=== PATIENT | female | born 1940 | race Caucasian/White ===

== ENCOUNTER 2019-02-06 12:31 | Emergency (ER) | payer MEDICARE, OTHER ==
[~2019-02-06] VITALS: Ht 172.7 cm; Wt 72.6 kg
--- OUTSIDE RECORDS SUMMARY | ~2019-02-06 | XMS | Encounter Summary ---
Demographics + + + | Address | [address] | | | [place] [address] | + + + | Home Phone | | + + + | Preferred Language | Unknown | + + + | Marital Status | | + + + | Jainism Affiliation | 1077 | + + + | Race | Unknown | + + + | Ethnic Group | Unknown | + + + Author + + + | Author | [facility] | | | and [place] | + + + | Organization | [facility] | | | and [place] | + + + | Address | Unknown | + + + | Phone | Unavailable | + + + Support + + +---------+ + | Name | Relationship | Address | Phone | + + +---------+ + | Maryana Zamora | ECON | Unknown | | + + +---------+ + Care Team Providers + +------+ + | Care Fruit Or Nut Crops Farm Manager Name | Role | Phone | + +------+ + | Slava Allison DO | PCP | | + +------+ + Encounter Details +--------+ + + + + | Date | Type | Department | Care Team | Description | +--------+ + + + + | 01/07/ | Imaging | [facility] | Provider, | | | 2019 | Exam | [facility] | MD [address] | | | | | IMAGING | Radha [address]ias. [address] | | | | | [phone] | [place] [address] | | +--------+ + + + + Social History + + + +--------+ + | Tobacco Use | Types | Packs/Day | Years | Date | | | | | Used | | + + + +--------+ + | Former Smoker | Cigarettes | 1 | 18 | 10/10/1966 - | | | | | | 10/10/1983 | + + + +--------+ + + +---+---+---+ | Smokeless Tobacco: | | | | | Never Used | | | | + +---+---+---+ + + +---------+ + | Alcohol Use | Drinks/We | oz/Week | Comments | | | ek | | | + + +---------+ + | Yes | | | every 2 months | + + +---------+ + + + + | Sex Assigned at | Date Recorded | | | | + + + | Not on file | | + + + as of this encounter Functional Status + + + + | Functional Status | Response | Date of Assessment | + + + + | Are you deaf or do you have serious | No | 12/24/2017 | | difficulty hearing? | | | + + + + | Are you blind or do you have serious | No | 12/24/2017 | | difficulty seeing, even when wearing | | | | glasses? | | | + + + + | Do you have serious difficulty walking or | No | 12/24/2017 | | climbing stairs? (5 years old or older) | | | + + + + | Do you have difficulty dressing or bathing? | No | 12/24/2017 | | (5 years old or older) | | | + + + + | Because of a physical, mental, or emotional | No | 12/24/2017 | | condition, do you have difficulty doing | | | | errands alone such as visiting a doctor's | | | | office or shopping? [15 years old or | | | | older)] | | | + + + + + + + + | Cognitive Status | Response | Date of Assessment | + + + + | Because of a physical, mental, or emotional | No | 12/24/2017 | | condition, do you have serious difficulty | | | | concentrating, remembering, or making | | | | decisions? (5 years old or older) | | | + + + + as of this encounter Plan of Treatment +--------+---------+ + + + | Date | Type | Specialty | Care Team | Description | +--------+---------+ + + + | 02/23/ | Office | Neurosurgery | Jose Rosa | | | 2019 | Visit | | KATHERIN Torres [address] | | | | | | [address] [facility] [address] | | | | | | [place] | | | | | | [phone] | | | | | | | | +--------+---------+ + + + | 04/22/ | Office | Neurosurgery | Crow Bates MD | | | 2018 | Visit | | [address] [facility] | | | | | | [address] [place] | | | | | | [address] | | | | | | | | +--------+---------+ + + + as of this encounter Procedures + +--------+ + + + | Procedure Name | Priori | Date/Time | Associated Diagnosis | Comments | | | ty | | | | + +--------+ + + + | MRI LUMBAR SPINE WO | Routin | 01/07/2019 | | Results for this | | CONTRAST | e | 1605 PST | | procedure are in the | | | | | | results section. | + +--------+ + + + in this encounter Results MRI Lumbar Spine wo Contrast (01/07/2019 1605) + + + | Narrative | Performed At | + + + | External films for comparison only | [facility] | | | | | No results will be in the chart. | | + + + + +---------+ + + | Performing | Address | City/State/Zipcode | Phone Number | | Organization | | | | + +---------+ + + | [facility] | | | | + +---------+ + + in this encounter Visit Diagnoses Not on filein this encounter"
--- OUTSIDE RECORDS SUMMARY | ~2019-02-06 | XMS | Encounter Summary ---
Demographics + + + | Address | [address] | | | [place] [address] | + + + | Home Phone | | + + + | Preferred Language | Unknown | + + + | Marital Status | | + + + | Orthodoxy Affiliation | 1077 | + + + | Race | Unknown | + + + | Ethnic Group | Unknown | + + + Author + + + | Author | [facility] | | | and [place] | + + + | Organization | [facility] | | | and [place] [...] Team Providers + +------+ + | Care Flexo Press Operator Name | Role | Phone | + +------+ + | Vi Johnson | PCP | | | [place] | | | + +------+ + Encounter Details +--------+ + + + + | Date | Type | Department | Care Team | Description | +--------+ + + + + | 01/20/ | Orders Only | [facility] [place] | Crow Bates MD | Lumbar radiculopathy | | 2019 | | NEUROSURGERY [address] | (Primary Dx); | | | | [address] [place] [address] | [address] [place], [place] | Scoliosis, | | | | [place], [place] | [address] | unspecified | | | | [address] | | scoliosis type, | | | | [phone] | | unspecified spinal | | | | | | region | +--------+ + + + + Social [...] Neurosurgery | Jose Rosa | | | 2018 | Visit | | KATHERIN Torres [address] | | | | | | [address] [place] [address] | | | | | | [place] | | | | | | [address] | | | | | | | | +--------+---------+ + + + | 04/22/ | Office | Neurosurgery | Crow Bates MD | | | 2018 | Visit | | [address] [place] | | | | | | [address] [place] | | | | | | [address] | | | | | | | | +--------+---------+ + + + as of this encounter Results XR Scoliosis Entire Spine 6+ Views (01/26/2019 0940) + + + | Narrative | Performed At | + + + | EXAM:XR SCOLIOSIS ENTIRE SPINE 6+ VIEWS CLINICAL HISTORY: | [facility] | | Surgical planning COMPARISON: Cervical spine radiograph 01/09/2019, | | | chest x-ray 01/21/2019, and scoliosis 09/18/2017. FINDINGS: | | | Frontal and lateral views of the entire spine. There are right and | | | left lateral bending views. There is a frontal view of the lumbar | | | spine in addition to extension and flexion lateral views of the | | | lumbar spine. There is levoconvex scoliosis in the lumbar | | | spine. The apex is L3. There is left lateral listhesis of L3 | | | and L4. No significant change in the curvature with right or left | | | lateral bending. Incidental identification of fusion related | | | changes in the lower cervical spine. No exaggeration of the | | | thoracic arthrosis. The lungs are clear bilaterally. Dedicated | | | images of the lumbar spine. Levoconvex scoliosis. There is | | | diffuse disc narrowing. There is left lateral listhesis of L3 and | | | L4. Right lateral listhesis of L1 and L2. In the neutral | | | lateral position there is a component of anterolisthesis at L4 | | | estimated at about 4 mm. Probable slight anterolisthesis of | | | L3. No abnormal translation with flexion or extension. 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 No abnormal translation with | | | flexion or extension. Dictated and Signed by: Derik Louis MD | | | Electronically signed: 01/26/2019 9:59 AM | | + + + + + | Procedure Note | + + | Rudy, Rad Results In - 01/26/2019 1002 PDT EXAM:XR SCOLIOSIS ENTIRE SPINE 6+ VIEWS | | | | CLINICAL HISTORY: Surgical planning | | | | COMPARISON: Cervical spine radiograph 01/09/2019, chest x-ray 01/21/2019, and | | scoliosis 09/18/2017. | | | | FINDINGS: Frontal and lateral views of the entire spine. There are right and | | left lateral bending views. There is a frontal view of the lumbar spine in | | addition to extension and flexion lateral views of the lumbar spine. | | | | There is levoconvex scoliosis in the lumbar spine. The apex is L3. There is | | left lateral listhesis of L3 and L4. No significant change in the curvature | | with right or left lateral bending. Incidental identification of fusion related | | changes in the lower cervical spine. No exaggeration of the thoracic arthrosis. | | | | The lungs are clear bilaterally. | | | | Dedicated images of the lumbar spine. Levoconvex scoliosis. There is diffuse | | disc narrowing. There is left lateral listhesis of L3 and L4. Right lateral | | listhesis of L1 and L2. In the neutral lateral position there is a component of | | anterolisthesis at L4 estimated at about 4 mm. Probable slight anterolisthesis | | of L3. No abnormal translation with flexion or extension. | | | | IMPRESSION - | | | | Levoconvex scoliosis with associated multilevel spondylosis and | | spondylolisthesis. | | | | No abnormal translation with flexion or extension. | | | | Dictated and Signed by: Derik Louis MD | | Electronically signed: 01/26/2019 9:59 AM | + + + +---------+ + + | Performing | Address | City/State/Zipcode | Phone Number | | Organization | | | | + +---------+ + + | [facility] | | | | + +---------+ + + in this encounter Visit Diagnoses + + | Diagnosis | + + | Lumbar radiculopathy - Primary | + + | Thoracic or lumbosacral neuritis or radiculitis, unspecified | + + | Scoliosis, unspecified scoliosis type, unspecified spinal region | + +"
--- OUTSIDE RECORDS SUMMARY | ~2019-02-06 | XMS | Encounter Summary ---
Demographics + + + | Address | [address] | | | [place] [address] | + + + | Home Phone | | + + + | Preferred Language | Unknown | + + + | Marital Status | | + + + | Hinduism Affiliation | 1077 | + + + | Race | Unknown | + + + | Ethnic Group | Unknown | + + + Author + + + | Author | [facility] | | | and [place] | + + + | Organization | [facility] | | | and [place] | [...] Team Providers + +------+ + | Care Grassroots Organizer Name | Role | Phone | + +------+ + | Vi Johnson | PCP | | | PA | | | + +------+ + Reason for Visit Auth/Cert +--------+--------+ + + + + | Status | Reason | Specialty | Diagnoses / | Referred By | Referred To | | | | | Procedures | Contact | Contact | +--------+--------+ + + + + | | | | Diagnoses | | Crow Bates | | | | | Lumbar | | MD Roxanne [address] | | | | radiculopath | | [address] [place] | | | | | y (M54.16), | | [address] [place] | | | | | Scoliosis, | | [place], [place] | | | | | unspecified | | [address] Phone: | | | | | scoliosis | | [phone] | | | | | type, | | Fax: | | | | | unspecified | | [phone] | | | | | spinal | | | | | | | region | | | | | | | (M41.9), | | | | | | | Lumbar | | | | | | | spondylosis | | | | | | | (M47.816), | | | | | | | Neural | | | | | | | foraminal | | | | | | | stenosis of | | | | | | | lumbar spine | | | | | | | (M99.83), | | | | | | | Neurogenic | | | | | | | claudication | | | | | | | (M48.062) | | | | | | | Procedures | | | | | | | NV SPINAL | | | | | | | FUSION,ANT,E | | | | | | | A ADNL LEVEL | | | | | | | NV SPINE | | | | | | | FUSN,POST | | | | | | | TECH,EA | | | | | | | ADDNL SGMT | | | | | | | NV ARTHDSIS | | | | | | | POST/POSTERO | | | | | | | LATRL/POSTIN | | | | | | | TERBODY | | | | | | | LUMBAR | | | | | | | POSTERIOR | | | | | | | SEGMENTAL | | | | | | | INSTRUMENTAT | | | | | | | ION 3-6 VRT | | | | | | | SEG NV INSJ | | | | | | | BIOMCHN DEV | | | | | | | | | | | | | | INTERVERTEBR | | | | | | | AL DSC SPC | | | | | | | W/ARTHRD NV | | | | | | | | | | | | | | STEREOTACTIC | | | | | | | COMP ASSIST | | | | | | | PROC,SPINAL | | | | | | | | | | | | | | LAMINEC/FACE | | | | | | | TECT/FORAMIN | | | | | | | ,LUMBAR 1 | | | | | | | SEG NV | | | | | | | LAMINEC/FACE | | | | | | | TECT/FORAMIN | | | | | | | ,EACH ADDNL | | | +--------+--------+ + + + + Encounter Details +--------+ + + + + | Date | Type | Department | Care Team | Description | +--------+ + + + + | 01/26/ | Hospital | [facility] [place] | Crow Bates MD | Gait abnormality | | 2019 - | Encounter | [facility] | [address] [place] | (Primary Dx); | | | | [address] [place] | [address] | Bilateral lumbar | | 01/30/ | | [place] [address] | [id number] | radiculopathy | | 2019 | | [phone] | | | +--------+ + + + + [...] + + + as of this encounter Last Filed Vital Signs + + + + | Vital Sign | Reading | Time Taken | + + + + | Blood Pressure | 149/67 | 01/30/2019 0817 PDT | + + + + | Pulse | 90 | 01/30/2019 1101 PDT | + + + + | Temperature | 36.9 C (98.4 F) | 01/30/2019 0746 PDT | + + + + | Respiratory Rate | 16 | 01/30/2019 0903 PDT | + + + + | Oxygen Saturation | 92% | 01/30/2019 1101 PDT | + + + + | Inhaled Oxygen | - | - | | Concentration | | | + + + + | Weight | 75.2 kg (165 lb 12.6 | 01/26/2019 1010 PDT | | | oz) | | + + + + | Height | 154.5 cm (5' 0.83") | 01/26/2019 1010 PDT | + + + + | Body Mass Index | 31.5 | 01/26/2019 1010 PDT | + + + + in this encounter Functional Status + + + + | Functional Status | Response | Date of Assessment | + + + + | Are you deaf or do you have serious | No | 01/30/2019 | | difficulty hearing? | | | + + + + | Are you blind or do you have serious | No | 01/30/2019 | | difficulty seeing, even when wearing | | | | glasses? | | | + + + + | Do you have serious difficulty walking or | Yes | 01/30/2019 | | climbing stairs? (5 years old or older) | | | + + + + | Do you have difficulty dressing or bathing? | No | 01/30/2019 | | (5 years old or older) | | | + + + + | Because of a physical, mental, or emotional | No | 01/30/2019 | | condition, do you have difficulty [...] physical, mental, or emotional | No | 01/30/2019 | | condition, do you have serious difficulty | | | | concentrating, remembering, or making | | | | decisions? (5 years old or older) | | | + + + + as of this encounter Discharge Summaries Freddy Og PA-C - 01/30/2019 1010 PDTFormatting of this note may be different from the original. DISCHARGE SUMMARY Pt. Name/Age/: Lulu Granados 78 y.o. 1940 Date of Admission: 01/26/2019 Date of Discharge: 01/30/2019 Admitting Physician: Crow Bates MD PCP: Vi Johnson Discharging Physician: Freddy Og PA-C Primary Discharge Dx: Scoliosis of thoracolumbar spine, unspecified scoliosis type Other secondary kyphosis, thoracolumbar region Lumbar facet arthropathy Yes Other osteoarthritis of spine, lumbar region Lumbar foraminal stenosis Bilateral lumbar radiculopathy Secondary Discharge Dx: Patient Active Problem List Diagnosis Osteoporosis SCOLIOSIS SPINAL STENOSIS Bilateral lumbar radiculopathy Lumbar foraminal stenosis DDD (degenerative disc disease), lumbar Lumbar radiculopathy 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 female that presents for a follow up to discuss back surgery. Patient returns and overall is doing okay from her neck but has p ersistent issue with her back and legs. Her back has been a bit better since her operation on her neck for myelopathy but her lumbar radiculopathy has increased. She has persistent l ateral leg to the dorsal foot pain and on the right and now left posterior leg pain that has increased. Hospital Course, including Complications: The patient was admitted for planned surgery. She had a lumbar fusion completed without co mplication. After surgery, there were no events. She did struggle with pain and nausea the first 24 hours which slowed her up a little bit. She mobilized well very well after PO day 2. On PO day 2 there was notable weakness in her left leg. Inpatient rehab was considered bu t on PO day 3 she seemed to turn the corner and we felt it was appropriate to DC home on PO day 4. The patient was discharged home and will follow-up as an outpatient. There were no cardiac issues, pulmonary issues, evidence of DVT or infection. Prescription Monitoring Program checked prior to discharge. Preoperative MEDD 0 MEDD at discharge= Outpatient Morphine Equivalent Daily Dose (MEDD) 01/30/19 and after 45-90 mg MEDD Order Name Dose Route Frequency Maximum MEDD oxyCODONE (ROXICODONE) 5 mg tablet 5-10 mg Oral EVERY 4 HOURS PRN 45-90 mg MEDD Total Potential Daily Morphine Equivalence 45-90 mg MEDD Calculation Information oxyCODONE (ROXICODONE) 5 mg tablet oxyCODONE 5 mg Tabs: single dose of 5-10 mg * 6 doses per day * morphine equivalence facto r of 1.5 = 45-90 mg MEDD based on use and adjustments of medications to achieve adequate management of symptoms dur ing hospital course. Patient has been counseled on expectation to taper the use of medications and has been prov ided education on the risks, benefits, and alternatives to medications. Naloxone is ordered due to risk of opiate overdose Medications Reconciled upon Discharge are: Discharge Medications New Medications Details lactulose 10 g/15 mL solution Take 30 mLs by mouth 2 times daily. For constipation methocarbamol 750 mg tablet Take 1-2 tablets by mouth every 6 hours as needed for Muscle spasms. aka: ROBAXIN naloxone 4 mg/nasal spray 1 spray by Nasal route as needed for Decreased Responsiveness. Please provide counseling/e ducation on appropriate use. aka: NARCAN oxyCODONE 5 mg tablet Take 1-2 tablets by mouth every 4 hours as needed for Pain. Exempt: patient had recent flor or spine surgery. aka: ROXICODONE Changed Medications Details famotidine 20 mg tablet Take 1 tablet by mouth 2 times daily. What changed: how much to take aka: PEPCID Unchanged Medications Details amLODIPine 5 mg tablet Take 5 mg by mouth Daily. aka: NORVASC ascorbic acid 500 mg tablet Take 500 mg by mouth Daily. aka: VITAMIN C aspirin 81 MG tablet Take 81 mg by mouth Daily. benazepril 10 mg tablet Take 10 mg by mouth Daily. aka: LOTENSIN benzonatate 200 MG capsule Take 200 mg by mouth 3 times daily as needed. aka: TESSALON betamethasone valerate 0.1 % cream Apply topically 2 times daily. aka: VALISONE cetirizine 10 mg tablet Take 10 mg by mouth Daily. aka: zyrTEC ergocalciferol 50,000 units capsule Take 50,000 Units by mouth Once a week. aka: VITAMIN D-2 Fish Oil 1360 MG Caps Take 1,000 mg by mouth 3 times daily. levothyroxine 75 MCG tablet Take 75 mcg by mouth every morning (before breakfast). aka: SYNTHROID meloxicam 15 mg tablet Take 15 mg by mouth Daily. aka: MOBIC simvastatin 40 mg tablet Take 40 mg by mouth Daily. aka: ZOCOR SYSTANE 0.4-0.3% ophthalmic solution Generic drug: polyethylene glycol-propylene glycol Place 1 drop into both eyes EVERY 4 TO 6 HOURS NEEDED for Dry Eyes. THERAGRAN PO Take by mouth. Discontinued Medications zolpidem 5 mg tablet aka: BENJAMIN Condition on Discharge: Stable Follow-Up Plans: Follow-up: 3-4 weeks for routine follow-up. Follow-up with primary care physician as needed. Diet: Resume home diet Activity: Continue to follow guidelines and precautions as previously discussed. Bracing: C Brace Electronically signed by: Freddy Og, 01/30/2019 10:10 [facility] in this encounter Discharge Instructions Freddy Og PA-C - 01/30/2019Discharge Instructions for Lumbar Fusion You had a lumbar fusion. During this procedure, your doctor locked together (fused) some of the bones in your spine. This limits the movement of these bones to help relieve your pain. Here s what you need to know about home care following a spinal fusion. Activity Arrange your household to keep the items you need within reach. Remove electrical cords, throw rugs, and anything else that may cause you to fall. Use a walkeror handrails until your balance, flexibility, and strength improve. And re member to ask for help from others when you need it. Free up your hands so that you can use them to keep balance. Use a kacie pack, apron, or pockets to carry things. Be sure not to carry too much at once. Don t bend or twist at the waist, or raise your hands over your head for the first two weeks after your surgery. Don t lift anything heavier than 5 pounds for the first four weeks after surgery. Don t sit for more than30 to 45 minutes at a time. Take frequent short walks. They a re the bhatia to your recovery. As your back feels better please gradually increase the distanc e you walk as discussed with your provider. Don t drive until your doctor says it s OK. And never drive while you are taking opi oid pain medication. Nap if you are tired, but don t stay in bed all day. Use chairs with arms. The arms make it easier for you to stand up and sit down. If you have not yet received instructions about physical therapy, ask your doctor about them. Incision care Check your incision daily for redness, tenderness, or drainage. Don t soak your wound in water (no hot tubs, bathtubs, swimming pools) until your doct or says it s OK. As long as you keep your incision dry you can shower as desired. After 5 days you may le t shower water run over the incision but do not submerse the incision under water until afte r you see your provider. Gently pat the incision dry. Don t rub it, or apply creams or lot ions. And if you feel unsteady while standing to shower, use a shower stool or chair. Other home care Use nonslip bath mats, grab bars, an elevated toilet seat, and a shower chair in your ba throom. Take your medication exactly as directed. Don t take nonsteroidal anti-inflammatory medications (NSAIDs), such as ibuprofen. The y may delay or prevent proper fusion of the spine. If you smoke, stop! This will be one of the most important things you can do to help you recover from surgery. Wear your back brace, if one was prescribed, as directed by your doctor. Follow-up Most patients will be seen approximately 4 weeks after surgery. Be sure to get your 1 mo nth post op x-rays at least 45 minutes prior to your 1 month post op appointment. [id number] [employer]. [address] [place] [address], [place] [address]. All righ ts reserved. This information is not intended as a substitute for professional medical care. Always follow your healthcare professional's instructions. in this encounter Medications at Time of Discharge + + + +---------+ + + | Medication | Sig. | Disp. | Refills | Start | End Date | | | | | | Date | | + + + +---------+ + + | amLODIPine | Take 5 mg by mouth | | | | | | (NORVASC) 5 mg | Daily. | | | | | | tablet | | | | | | + + + +---------+ + + | ascorbic acid | Take 500 mg by mouth | | | | | | (VITAMIN C) 500 mg | Daily. | | | | | | tablet | | | | | | + + + +---------+ + + | aspirin 81 MG | Take 81 mg by mouth | | | | | | tablet | Daily. | | | | | + + + +---------+ + + | benazepril | Take 10 mg by mouth | | | | | | (LOTENSIN) 10 mg | Daily. | | | | | | tablet | | | | | | + + + +---------+ + + | benzonatate | Take 200 mg by mouth | | 0 | 07/22/20 | | | (TESSALON) 200 MG | 3 times daily as | | | 18 | | | capsule | needed. | | | | | + + + +---------+ + + | betamethasone | Apply topically 2 | | | | | | valerate (VALISONE) | times daily. | | | | | | 0.1 % cream | | | | | | + + + +---------+ + + | cetirizine | Take 10 mg by mouth | | 0 | 08/27/20 | | | (ZYRTEC) 10 mg | Daily. | | | 17 | | | tablet | | | | | | + + + +---------+ + + | ergocalciferol | Take 50,000 Units by | | 0 | 08/06/20 | | | (VITAMIN D-2) 50,000 | mouth Once a week. | | | 18 | | | units capsule | | | | | | + + + +---------+ + + | famotidine | Take 1 tablet by | 60 | 1 | 01/21/20 | | | (PEPCID) 20 mg | mouth 2 times daily. | tablet | | 18 | | | tabletIndications: | | | | | | | Gastroesophageal | | | | | | | reflux disease, | | | | | | | esophagitis presence | | | | | | | not specified | | | | | | + + + +---------+ + + | lactulose 10 g/15 | Take 30 mLs by mouth | 240 mL | 2 | 01/31/20 | | | mL solution | 2 times daily. For | | | 19 | | | | constipation | | | | | + + + +---------+ + + | levothyroxine | Take 75 mcg by mouth | | | | | | (SYNTHROID, | every morning | | | | | | LEVOTHROID) 75 MCG | (before breakfast). | | | | | | tablet | | | | | | + + + +---------+ + + | meloxicam (MOBIC) | Take 15 mg by mouth | | 0 | 07/29/20 | | | 15 mg tablet | Daily. | | | 18 | | + + + +---------+ + + | methocarbamol | Take 1-2 tablets by | 90 | 3 | 01/31/20 | | | (ROBAXIN) 750 mg | mouth every 6 hours | tablet | | 19 | | | tablet | as needed for Muscle | | | | | | | spasms. | | | | | + + + +---------+ + + | Multiple Vitamin | Take by mouth. | | | | | | (THERAGRAN PO) | | | | | | + + + +---------+ + + | naloxone (NARCAN) | 1 spray by Nasal | 1 each | 0 | 01/31/20 | | | 4 mg/nasal spray | route as needed for | | | 19 | | | | Decreased | | | | | | | Responsiveness. | | | | | | | Please provide | | | | | | | counseling/education | | | | | | | on appropriate use. | | | | | + + + +---------+ + + | Meservey-3 Fatty | Take 1,000 mg by | | | | | | Acids (FISH OIL) | mouth 3 times daily. | | | | | | 1360 MG CAPS | | | | | | + + + +---------+ + + | oxyCODONE | Take 1-2 tablets by | 120 | 0 | 01/31/20 | | | (ROXICODONE) 5 mg | mouth every 4 hours | tablet | | 19 | | | tablet | as needed for Pain. | | | | | | | Exempt: patient had | | | | | | | recent major spine | | | | | | | surgery. | | | | | + + + +---------+ + + | polyethylene | Place 1 drop into | | | | | | glycol-propylene | both eyes EVERY 4 TO | | | | | | glycol (SYSTANE) | 6 HOURS NEEDED | | | | | | 0.4-0.3% ophthalmic | for Dry Eyes. | | | | | | solution | | | | | | + + + +---------+ + + | simvastatin | Take 40 mg by mouth | | | 03/07/20 | | | (ZOCOR) 40 mg tablet | Daily. | | | 10 | | + + + +---------+ + + as of this encounter Progress Notes Walter Mendoza MD - 01/30/2019 1515 PDTFormatting of this note may be different from t he original. [id number] Daily Progress Note Date: 01/30/2019 BERNARDA Granados is a 78 y.o. female who was admitted 01/26/2019 Reason for encounter : CC : Physician follow-up to address the Medical and Rehabilitation needs, issues, and prob lems . These include serving as the patient's consulting medical rehabilitation physician while on our Acuteinpatient medical service . I am responsible for managing and treating the active medical rehabilitation diagnoses as documented in the Rehabilitation consultation Impressions and Progress Notes . Also I am responsible for coordinating with the attending physician and collaborating with our Interdisciplinary Rehabilitation treatment Team members' efforts including management of problems with function including safety with self-care/activities of daily living as well a s safely negotiating the environment/functional mobility. Interval History: Doing well. No new acute problems reported. Chief problem : Weakness and difficulty with self-care/ADLs and functional mobility She is in good spirits and eager for discharge to home. Problem List : See my impression list ROS- Review of systems stated in the Interval History as applicable Current Meds: Current Facility-Administered Medications: acetaminophen (TYLENOL) tablet 650 mg, 650 mg, Oral, Q4H PRN, MILAD Delgado, 650 mg at 01/30/19 0110 amLODIPine (NORVASC) tablet 5 mg, 5 mg, Oral, Daily, Jose Rosa PA-C, 5 mg a t 01/30/19 0818 atorvaSTATin (LIPITOR) tablet 20 mg, 20 mg, Oral, Nightly, Jose Rosa PA-C, 20 mg at 01/29/192014 benzonatate (TESSALON) capsule 200 mg, 200 mg, Oral, TID PRN, MILAD Delgado, 200 mg at 01/28/19 0817 bisacodyl (DULCOLAX) suppository 10 mg, 10 mg, Rectal, Daily PRN, Jose Rosa PA-C calcium carbonate (TUMS) chewable tablet 1,000 mg, 1,000 mg, Oral, Q2H PRN, Jose Rosa PA-C cetirizine (zyrTEC) tablet 10 mg, 10 mg, Oral, Daily, Jose Rosa PA-C, 10 mg at 01/30/19 0817 cyclobenzaprine (FLEXERIL) tablet 10 mg, 10 mg, Oral, Q8H PRN, OXANA Delgado, 10 mg at 01/27/19 0531 diphenhydrAMINE (BENADRYL) injection 12.5 mg, 12.5 mg, Intravenous, Q4H PRN, 12.5 mg a t 01/27/19 0740 OR diphenhydrAMINE (BENADRYL) tablet 25 mg, 25 mg, Oral, Q4H PRN OR diphenhydrAMINE (BENADRYL) 12.5 mg/5 mL liquid 25 mg, 25 mg, Oral, Q4H PRN, Jose calero PA-C docusate sodium (COLACE) capsule 100 mg, 100 mg, Oral, BID, Jose Rosa PA-C, 100 mg at 01/30/19 0817 enalaprilat (VASOTEC) injection 1.25 mg, 1.25 mg, Intravenous, Q6H PRN, Jose Rosa PA-C famotidine (PEPCID) tablet 10 mg, 10 mg, Oral, BID, Jose Rosa PA-C, 10 mg a t 01/30/19 0818 labetalol (TRANDATE) 5 mg/mL injection 10 mg, 10 mg, Intravenous, Q1H PRN, Jose Rosa PA-C lactulose liquid 30 mL, 30 mL, Oral, Daily PRN, Jose Rosa PA-C levothyroxine (SYNTHROID) tablet 75 mcg, 75 mcg, Oral, QAM AC, OXANA Delgado, 75 mcg at 01/30/19 0608 lisinopril (PRINIVIL, ZESTRIL) tablet 5 mg, 5 mg, Oral, Daily, OXANA Delgado, 5 mg at 01/30/19 0818 magnesium hydroxide (MILK OF MAGNESIA) 400 mg/5 mL suspension 30 mL, 30 mL, Oral, Nigh tly PRN, Jose Rosa PA-C menthol (HALLS COUGH DROP) lozenge 1 lozenge, 1 lozenge, Buccal, Q2H PRN, Jose Rosa PA-C methocarbamol (ROBAXIN) tablet 1,500 mg, 1,500 mg, Oral, Q6H PRN, Jose Rosa PA-C, 1,500 mg at 01/30/19 1427 metoclopramide (REGLAN) tablet 10 mg, 10 mg, Oral, Q4H PRN, Jose Rosa PA-C, 10 mg at 01/27/19 0340 morphine injection 1-4 mg, 1-4 mg, Intravenous, Q4H PRN, Jose Rosa PA-C, 1 mg at 01/27/19 0823 naloxone (NARCAN) 0.4 mg/mL injection 0.4 mg, 0.4 mg, Intravenous, PRN, Michael Smith ondansetron (ZOFRAN ODT) disintegrating tablet 4 mg, 4 mg, Oral, Q6H PRN, Jose Rosa PA-C, 4 mg at 01/29/192014 ondansetron (ZOFRAN) injection 4 mg, 4 mg, Intravenous, Q6H PRN, Jose Rosa PA-C oxyCODONE (ROXICODONE) tablet 5-20 mg, 5-20 mg, Oral, Q4H PRN, OXANA Delgado, 5 mg at 01/30/19 1008 phenol (CHLORASEPTIC) spray 1-2 spray, 1-2 spray, Mouth/Throat, Q3H PRN, Jose Rosa PA-C polyethylene glycol (MIRALAX) powder 17 g, 17 g, Oral, Daily, MILAD Delgado, 17 g at 01/30/19 0823 prochlorperazine tablet 5 mg, 5 mg, Oral, Q6H PRN, Jose Rosa PA-C, 5 mg at 01/27/19 0646 senna (SENOKOT) tablet 8.6 mg, 8.6 mg, Oral, BID PRN, Jose Rosa PA-C, 8.6 m g at 01/26/192049 sodium chloride 0.9% (NS) infusion, , Intravenous, Continuous, OXANA Delgado, Last Rate: 100 mL/hr at 01/27/19 0646 Allergies: Allergies Allergen Reactions Nickel Rash Sheep Itching,Rash WOOL Intolerance No active intolerances/contraindications PFSH has been reviewed for today as applicable. The complete PFSH is documented in the ini tia history and physical on admission to our Inpatient Rehab services Physical Exam: BP 149/67 | Pulse 90 | Temp 36.9 C (98.4 F) (Oral) | Resp 16 | Ht 1.545 m (5' 0.83" ) | Wt 75.2 kg (165 lb 12.6 oz) | SpO2 92% | BMI 31.50 kg/m Gen: Alert, sitting in bed, NAD EYES: Conjunctiva clear. Pupils react to light. ENMT: External nose and ears normal. Mucosa moist in nose and mouth. NECK: No abnormal masses noted. Trachea midline. No thyromegaly. LYMPTHATIC: No significant adenopathy noted in neck, axillae or groin. RESPIRATORY: Normal comfortable respiratory effort. Lungs clear. CARDIOVASCULAR: No abnormal thrill or palpitation. Regular rate and rhythm.Peripheral pulses are symmetric. GASTROINTESTINAL: No abnormal masses noted. No organomegaly appreciated. Abdomen soft. Bowel sounds present. MUSCULOSKELETAL: Range of motion stable. No new areas of increased tenderness noted. NEUROLOGIC: The patient is alert. The strength and mobility are stable. Labs: Recent Results (from the past 48 hour(s)) CBC with Differential Result Value Ref Range WBC 7.2 4.0 - 11.0 K/uL RBC 3.33 (L) 3.70 - 5.20 M/uL Hemoglobin 9.7 (L) 11.5 - 16.0 g/dL Hematocrit 30.7 (L) 34.0 - 47.0 % MCV 92.2 83.0 - 101.0 fL MCH 29.1 28.0 - 35.0 pg MCHC 31.6 (L) 32.0 - 36.0 g/dL RDW-CV 13.0 <15.0 % RDW-SD 44.4 35.1 - 46.3 fL Platelet Count 261 140 - 440 K/uL MPV 10.8 6.5 - 12.4 fL % Neutrophils 73.8 45.0 - 82.0 % % Lymphocytes 14.8 (L) 20.0 - 45.0 % % Monocytes 8.4 4.0 - 12.0 % % Eosinophils 1.4 0.0 - 5.0 % % Basophils 0.6 0.0 - 1.0 % % Immature Granulocytes 1.0 (H) 0.0 - 0.4 % Absolute Neutrophils 5.33 1.80 - 8.50 K/uL Absolute Lymphocytes 1.07 0.60 - 3.20 K/uL Absolute Monocytes 0.61 0.00 - 1.00 K/uL Absolute Eosinophils 0.10 0.00 - 0.40 K/uL Absolute Basophils 0.04 0.00 - 0.10 K/uL Absolute Immature Granulocytes 0.07 (H) 0.00 - 0.03 K/uL % nRBC 0 0 - 2 per 100 WBC's Absolute nRBC 0.00 0.00 - 0.01 K/uL Comprehensive Metabolic Panel Result Value Ref Range Na 138 136 - 145 mmol/L K 3.3 (L) 3.4 - 5.1 mmol/L Cl 102 98 - 107 mmol/L CO2 29 20 - 31 mmol/L Anion Gap 7 3 - 16 mmol/L Glucose 107 (H) 60 - 106 mg/dL BUN 10 9 - 23 mg/dL Creatinine 0.69 0.55 - 1.02 mg/dL eGFR if not >60 >=60 mL/min/1.73m2 Ca 8.8 8.7 - 10.4 mg/dL Albumin 3.6 3.2 - 4.8 g/dL Bilirubin Total 0.7 0.3 - 1.2 mg/dL Total Protein 5.6 (L) 5.7 - 8.2 g/dL AST 45 (H) 0 - 34 U/L ALT 22 10 - 49 U/L Alkaline Phosphatase 78 46 - 116 U/L Globulin 2.0 (L) 2.1 - 3.8 g/dL Albumin/Globulin Ratio 1.8 0.8 - 1.9 BUN/Creatinine Ratio 14.5 IMPRESSION : 1 . Chronic, progressively severe low back pain and lower extremity pain, refractory to co nservative management Requiring 2. S/p successful lumbar spine surgery January 26 with : 1. Minimally invasive lumbar fusion via anterior and posterior approaches 2. Combined posteriolateral and posterior interbody arthrodesis L5-S1 3. Anterior lumbar interbody arthrodesis L2-3, L3-4, L4-5 4. Posterolateral lumbar arthrodesis L2, L3, L4, and L5 5. Posterior spinal instrumentation L2-S1with use of Precept 6. Placement of PEEK interbody spacer L2-3, L3-4, L4-5, L5-S1 7. L5 and partial P3dppkeexxyln, L5-V8bikssdyhewt, L5 and L9rhfxbwtbezvn for decompre ssion of L5 and J4khsuhu 3. 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 Thoracolumbar kyphoscoliosis 5. Diagnoses as per H #Diet - Active Orders Diet Diet general; Effective Now PLAN : The patient is seen and evaluated on rounds. Laboratory data reviewed Meds reviewed. I reviewed status with patient's nurse and addressed questions and issues. I discussed and reviewed status with patient's therapist and addressed questions and issues . I met with the CLAIR PA and leather case finisher and reviewed the overall plan of care. We discussed patient's current status. She is doing well and is ready for discharge to [facility] with home health. Signed: MD Earle Gutierrez Derek E, PA-C - 01/30/2019 1004 PDTFormatting of this note may be different from the original. [facility] NEUROSURGERY PROGRESS NOTE PATIENT NAME: Lulu Granados AGE: 78 y.o. DATE OF SERVICE: 01/30/2019 10:04 S: Patient is better this AM. Se is feeling very good this AM and is ready to DC home. She walked 135' with PT yesterday. She has no other C/C. The patient has been voiding and is passing flatus. O: CURRENT MEDICATIONS: Current Facility-Administered Medications Medication Dose Route Frequency Provider Last Rate Last Dose acetaminophen (TYLENOL) tablet 650 mg 650 mg Oral Q4H PRN Jose Rosa PA-C 650 mg at 01/30/19 0110 amLODIPine (NORVASC) tablet 5 mg 5 mg Oral Daily Jose Rosa PA-C 5 mg at 0 01/30/19 0818 atorvaSTATin (LIPITOR) tablet 20 mg 20 mg Oral Nightly Jose Rosa PA-C 20 mg at 01/29/19 2015 benzonatate (TESSALON) capsule 200 mg 200 mg Oral TID PRN Jose Rosa PA-C 200 mg at 01/28/19 0817 bisacodyl (DULCOLAX) suppository 10 mg 10 mg Rectal Daily PRN MILAD Delgado calcium carbonate (TUMS) chewable tablet 1,000 mg 1,000 mg Oral Q2H PRN Jose Rosa PA-C cetirizine (zyrTEC) tablet 10 mg 10 mg Oral Daily Jose Rosa PA-C 10 mg at 01/30/19 0817 cyclobenzaprine (FLEXERIL) tablet 10 mg 10 mg Oral Q8H PRN Jose Rosa PA-C 10 mg at 01/27/19 0531 diphenhydrAMINE (BENADRYL) injection 12.5 mg 12.5 mg Intravenous Q4H PRN Jose Rosa PA-C 12.5 mg at 01/27/19 0740 Or diphenhydrAMINE (BENADRYL) tablet 25 mg 25 mg Oral Q4H PRN Jose Rosa PA-C Or diphenhydrAMINE (BENADRYL) 12.5 mg/5 mL liquid 25 mg 25 mg Oral Q4H PRN Jose Rosa PA-C docusate sodium (COLACE) capsule 100 mg 100 mg Oral BID Jose Rosa PA-C 10 0 mg at 01/30/19 0817 enalaprilat (VASOTEC) injection 1.25 mg 1.25 mg Intravenous Q6H PRN Jose hernandez PA-C famotidine (PEPCID) tablet 10 mg 10 mg Oral BID Jose Rosa PA-C 10 mg at 0 01/30/19 0818 labetalol (TRANDATE) 5 mg/mL injection 10 mg 10 mg Intravenous Q1H PRN Jose Rosa PA-C lactulose liquid 30 mL 30 mL Oral Daily PRN Jose Rosa PA-C levothyroxine (SYNTHROID) tablet 75 mcg 75 mcg Oral QAM AC Jose Rosa PA-C 75 mcg at 01/30/19 0608 lisinopril (PRINIVIL, ZESTRIL) tablet 5 mg 5 mg Oral Daily Jose Rosa PA-C 5 mg at 01/30/19 0818 magnesium hydroxide (MILK OF MAGNESIA) 400 mg/5 mL suspension 30 mL 30 mL Oral Nightly PRN Jose Rosa PA-C menthol (HALLS COUGH DROP) lozenge 1 lozenge 1 lozenge Buccal Q2H PRN Jose calero PA-C methocarbamol (ROBAXIN) tablet 1,500 mg 1,500 mg Oral Q6H PRN MILAD Delgado 1,500 mg at 01/30/19 0817 metoclopramide (REGLAN) tablet 10 mg 10 mg Oral Q4H PRN Jose Rosa PA-C 10 mg at 01/27/19 0340 morphine injection 1-4 mg 1-4 mg Intravenous Q4H PRN Jose Rosa PA-C 1 mg at 01/27/19 0823 naloxone (NARCAN) 0.4 mg/mL injection 0.4 mg 0.4 mg Intravenous PRN Crow Bates MD ondansetron (ZOFRAN ODT) disintegrating tablet 4 mg 4 mg Oral Q6H PRN Jose calero PA-C 4 mg at 01/29/19 2015 ondansetron (ZOFRAN) injection 4 mg 4 mg Intravenous Q6H PRN Jose Rosa PA-C oxyCODONE (ROXICODONE) tablet 5-20 mg 5-20 mg Oral Q4H PRN Jose Rosa PA-C 5 mg at 01/30/19 0110 phenol (CHLORASEPTIC) spray 1-2 spray 1-2 spray Mouth/Throat Q3H PRN Jose piper PA-C polyethylene glycol (MIRALAX) powder 17 g 17 g Oral Daily Jose Rosa PA-C 17 g at 01/30/19 0823 prochlorperazine tablet 5 mg 5 mg Oral Q6H PRN Jose Rosa PA-C 5 mg at 0646 senna (SENOKOT) tablet 8.6 mg 8.6 mg Oral BID PRN Jose Rosa PA-C 8.6 mg a t 01/26/192049 sodium chloride 0.9% (NS) infusion Intravenous Continuous Jose Rosa PA-C 1 00 mL/hr at 01/27/19 0646 ALLERGIES: Allergies Allergen Reactions Nickel Rash Sheep Itching and Rash WOOL PHYSICAL EXAMINATION: Temp: [36.8 C (98.2 F)-37.6 C (99.6 F)] 36.9 C (98.4 F) Pulse: [7-107] 88 Resp: [16-20] 16 BP: (114-149)/(52-67) 149/67 Intake/Output Summary (Last 24 hours) at 01/30/19 1004 Last data filed at 01/30/19 0609 Gross per 24 hour Intake 700 ml Output 2850 ml Net -2150 ml I checked her O2 and she was 95% on RA with a pulse of 77 GENERAL: Lulu Granados is in no acute distress with unlabored respirations. HEENT: HEAD/FACE: EYES: Normocephalic and atraumatic. There are no areas of recent trauma. Normal sclerae without icterus. CHEST: Clear. HEART: Regular. ABDOMEN Soft and nondistended. EXTREMITIES: No edema or swelling. SCD's BACK: The back incisions are dressed and a drain is in place with expected output. NEUROLOGICAL EXAM: MENTAL STATUS: The patient is awake, alert, and oriented. She follows simple and complex commands. She speech is fluent, her comprehends speech well, and her repeats well. She has no apparent deficits with short or extermination inspector memory. MOTOR EXAM: Motor strength is L dorsi 4+/5 and L quad 4. L hip flex 4+/5 SENSORY EXAM: Sensory exam is stable 24 HOUR LABS: All Component Based Labs 01/27/19 0623 01/26/19 1104 Anion Gap 9 BUN 13 BUN/Creatinine Ratio 15.3 Calcium 9.1 Chloride 106 Carbon dioxide 24 Creatinine 0.85 Culture Result Negative for MRSA by chromogenic agar method EGFR IF NOT >60 Extra Lavender Top Tube Done Glucose 180(H) K 4.0 Na 139 ASSESSMENT: NEUROSURGICAL DIAGNOSES: S/p lumbar fusion HOSPITAL/GENERAL DIAGNOSES: Past Medical History: Diagnosis Date Allergic rhinitis Benign hypertension Bilateral lumbar radiculopathy 04/18/2017 DDD (degenerative disc disease), lumbar 04/18/2017 Dyslipidemia H/O Cervical Fusion - ACDF C4-6 01/20/2018 12/23/2017 C4-5, C5-6 Acdf Hay fever Lumbar foraminal stenosis 04/18/2017 Lumbar spondylosis Osteoporosis Persistent insomnia PONV (postoperative nausea and vomiting) Spinal stenosis Subclinical hypothyroidism Wears dentures upper & lower partials PLAN: S/p lumbar fusion, Hospital day 4 - Neurologically stable and pain control is appropriate. She is doing much better with her pain at this time. - Medically stable: Left leg seems a stronger today. - Mobilize, PT/OT - SCD's - Patient is having adequate bowel function without any concerns. They were counseled that full bowel function may not return for a few days - Drain output is low and it can be removed now. If drain output is <30 CC in 4 hours drain can be removed this afternoon. - Disp: DC home today. See DC summary. ELECTRONICALLY SIGNED BY: Freddy Og PA-C, 01/30/2019 10:04SuFreddy ocampo PA- C - 01/29/2019 1011 PDTFormatting of this note may be different from the original. [facility] NEUROSURGERY PROGRESS NOTE PATIENT NAME: Lulu Granados AGE: 78 y.o. DATE OF SERVICE: 01/29/2019 10:11 S: Patient is better this AM. She had a better night. Pain is now down to a 4/10. This has improved since surgery. She is better this AM and her left leg pain has decreased and i s stronger. She initially wanted to go home instead of rehab but is willing to ultimately f ollow our recommendation. She only walked 15' and 20 feet yesterday. The patient has been voiding and is passing flatus. O: CURRENT MEDICATIONS: Current Facility-Administered Medications Medication Dose Route Frequency Provider Last Rate Last Dose acetaminophen (TYLENOL) tablet 650 mg 650 mg Oral Q4H PRN Jose Rosa PA-C 650 mg at 01/29/19 0043 amLODIPine (NORVASC) tablet 5 mg 5 mg Oral Daily Jose Rosa PA-C 5 mg at 0 01/28/19 0808 atorvaSTATin (LIPITOR) tablet 20 mg 20 mg Oral Nightly Jose Rosa PA-C 20 mg at 01/28/192001 benzonatate (TESSALON) capsule 200 mg 200 mg Oral TID PRN Jose Rosa PA-C 200 mg at 01/28/19 0817 bisacodyl (DULCOLAX) suppository 10 mg 10 mg Rectal Daily PRN MILAD Delgado calcium carbonate (TUMS) chewable tablet 1,000 mg 1,000 mg Oral Q2H PRN Jose Rosa PA-C cetirizine (zyrTEC) tablet 10 mg 10 mg Oral Daily Jose Rosa PA-C 10 mg at 01/28/19 0808 cyclobenzaprine (FLEXERIL) tablet 10 mg 10 mg Oral Q8H PRN Jose Rosa PA-C 10 mg at 01/27/19 0531 diphenhydrAMINE (BENADRYL) injection 12.5 mg 12.5 mg Intravenous Q4H PRN Jose Rosa PA-C 12.5 mg at 01/27/19 0740 Or diphenhydrAMINE (BENADRYL) tablet 25 mg 25 mg Oral Q4H PRN Jose Rosa PA-C Or diphenhydrAMINE (BENADRYL) 12.5 mg/5 mL liquid 25 mg 25 mg Oral Q4H PRN Jose Rosa PA-C docusate sodium (COLACE) capsule 100 mg 100 mg Oral BID Jose Rosa PA-C 10 0 mg at 01/28/192001 enalaprilat (VASOTEC) injection 1.25 mg 1.25 mg Intravenous Q6H PRN Jose hernandez PA-C famotidine (PEPCID) tablet 10 mg 10 mg Oral BID Jose Rosa PA-C 10 mg at 0 01/28/192002 labetalol (TRANDATE) 5 mg/mL injection 10 mg 10 mg Intravenous Q1H PRN Jose Rosa PA-C lactulose liquid 30 mL 30 mL Oral Daily PRN Jose Rosa PA-C levothyroxine (SYNTHROID) tablet 75 mcg 75 mcg Oral QAM AC Jose Rosa PA-C 75 mcg at 01/29/19 0616 lisinopril (PRINIVIL, ZESTRIL) tablet 5 mg 5 mg Oral Daily Jose Rosa PA-C 5 mg at 01/28/19 0808 magnesium hydroxide (MILK OF MAGNESIA) 400 mg/5 mL suspension 30 mL 30 mL Oral Nightly PRN Jose Rosa PA-C menthol (HALLS COUGH DROP) lozenge 1 lozenge 1 lozenge Buccal Q2H PRN Jose calero PA-C methocarbamol (ROBAXIN) tablet 1,500 mg 1,500 mg Oral Q6H PRN MILAD Delgado 1,500 mg at 01/28/19 1226 metoclopramide (REGLAN) tablet 10 mg 10 mg Oral Q4H PRN Jose Rosa PA-C 10 mg at 01/27/19 0340 morphine injection 1-4 mg 1-4 mg Intravenous Q4H PRN Jose Rosa PA-C 1 mg at 01/27/19 0823 naloxone (NARCAN) 0.4 mg/mL injection 0.4 mg 0.4 mg Intravenous PRN Crow Bates MD ondansetron (ZOFRAN ODT) disintegrating tablet 4 mg 4 mg Oral Q6H PRN Jose calero PA-C 4 mg at 01/27/19 0246 ondansetron (ZOFRAN) injection 4 mg 4 mg Intravenous Q6H PRN Jose Rosa PA-C oxyCODONE (ROXICODONE) tablet 5-20 mg 5-20 mg Oral Q4H PRN Jose Rosa PA-C 5 mg at 01/29/19 0043 phenol (CHLORASEPTIC) spray 1-2 spray 1-2 spray Mouth/Throat Q3H PRN Jose piper PA-C polyethylene glycol (MIRALAX) powder 17 g 17 g Oral Daily Jose Rosa PA-C 17 g at 01/28/19 0810 prochlorperazine tablet 5 mg 5 mg Oral Q6H PRN Jose Rosa PA-C 5 mg at 0646 senna (SENOKOT) tablet 8.6 mg 8.6 mg Oral BID PRN Jose Rosa PA-C 8.6 mg a t 01/26/192049 sodium chloride 0.9% (NS) infusion Intravenous Continuous OXANA Delgado-C 1 00 mL/hr at 01/27/19 0646 ALLERGIES: Allergies Allergen Reactions Nickel Rash Sheep Itching and Rash WOOL PHYSICAL EXAMINATION: Temp: [36.9 C (98.4 F)-37.8 C (100.1 F)] 36.9 C (98.4 F) Pulse: [83-94] 86 Resp: [16-20] 18 BP: (123-134)/(56-62) 134/62 Intake/Output Summary (Last 24 hours) at 01/29/19 1011 Last data filed at 01/29/19 0900 Gross per 24 hour Intake 610 ml Output 3250 ml Net -2640 ml GENERAL: Lulu Granados is in no acute distress with unlabored respirations. HEENT: HEAD/FACE: EYES: Normocephalic and atraumatic. There are no areas of recent trauma. Normal sclerae without icterus. CHEST: Clear. HEART: Regular. ABDOMEN Soft and nondistended. EXTREMITIES: No edema or swelling. SCD's BACK: The back incisions are dressed and a drain is in place with expected output. NEUROLOGICAL EXAM: MENTAL STATUS: The patient is awake, alert, and oriented. She follows simple and complex commands. She speech is fluent, her comprehends speech well, and her repeats well. She has no apparent deficits with short or prison memory. MOTOR EXAM: Motor strength is L dorsi 4+/5 and L quad 4. L hip flex 4+/5 SENSORY EXAM: Sensory exam is stable 24 HOUR LABS: All Component Based Labs 01/27/19 0623 01/26/19 1104 Anion Gap 9 BUN 13 BUN/Creatinine Ratio 15.3 Calcium 9.1 Chloride 106 Carbon dioxide 24 Creatinine 0.85 Culture Result Negative for MRSA by chromogenic agar method EGFR IF NOT >60 Extra Lavender Top Tube Done Glucose 180(H) K 4.0 Na 139 ASSESSMENT: NEUROSURGICAL DIAGNOSES: S/p lumbar fusion HOSPITAL/GENERAL DIAGNOSES: Past Medical History: Diagnosis Date Allergic rhinitis Benign hypertension Bilateral lumbar radiculopathy 04/18/2017 DDD (degenerative disc disease), lumbar 04/18/2017 Dyslipidemia H/O Cervical Fusion - ACDF C4-6 01/20/2018 12/23/2017 C4-5, C5-6 Acdf Hay fever Lumbar foraminal stenosis 04/18/2017 Lumbar spondylosis Osteoporosis Persistent insomnia PONV (postoperative nausea and vomiting) Spinal stenosis Subclinical hypothyroidism Wears dentures upper & lower partials PLAN: S/p lumbar fusion, Hospital day 3 - Neurologically stable and pain control is appropriate. She is doing much better with her pain at this time. - Medically stable: Left leg seems a stronger today. Definitely no Decadron for now. - Mobilize, PT/OT - SCD's - Patient is having adequate bowel function without any concerns. They were counseled that full bowel function may not return for a few days - Drain output is low and it can be removed now. If drain output is <30 CC in 4 hours drain can be removed this afternoon. - Disp: Patient had a big surgery. in addition, she is 78 years old and is mildly obese. B ecause of these combined factors it is very possible that she may need inpatient rehab. I hernández ve spoken with Albina this AM and we are going to rely heavily on her evaluation in regards t o a final recommendation or sending her home. Patient has verbalized her desire to go home b ut is willing to concede to our professional recommendation. DC home this afternoon or admit to rehab. ELECTRONICALLY SIGNED BY: Freddy Og PA-C, 01/29/2019 10:11SuFreddy ocampo PA- C - 01/28/2019 0905 PDTFormatting of this note may be different from the original. [facility] NEUROSURGERY PROGRESS NOTE PATIENT NAME: Lulu Granados AGE: 78 y.o. DATE OF SERVICE: 01/28/2019 9:05 S: Patient is better this AM. She had a better night. Pain is now down to a 4/10. This has improved since surgery. Currently, she rates her pain as a 6 out of 10. Patient is now voiding on her own without difficulty. She walked 20' yesterday with PT. She is being evalu ated for IPR and we will see how she does today. She does feel there is some weakness in her right leg and some moderate discomfort radiating into her left thigh and down her lateral t high. The patient has been voiding and is passing flatus. O: CURRENT MEDICATIONS: Current Facility-Administered Medications Medication Dose Route Frequency Provider Last Rate Last Dose acetaminophen (TYLENOL) tablet 650 mg 650 mg Oral Q4H PRN Jose Rosa PA-C 650 mg at 01/28/19 0028 amLODIPine (NORVASC) tablet 5 mg 5 mg Oral Daily Jose Rosa PA-C 5 mg at 0 01/28/19 0808 atorvaSTATin (LIPITOR) tablet 20 mg 20 mg Oral Nightly Jose Rosa PA-C 20 mg at 01/27/192004 benzonatate (TESSALON) capsule 200 mg 200 mg Oral TID PRN Jose Rosa PA-C 200 mg at 01/28/19 0817 bisacodyl (DULCOLAX) suppository 10 mg 10 mg Rectal Daily PRN MILAD Delgado calcium carbonate (TUMS) chewable tablet 1,000 mg 1,000 mg Oral Q2H PRN Jose Rosa PA-C cetirizine (zyrTEC) tablet 10 mg 10 mg Oral Daily Jose Rosa PA-C 10 mg at 01/28/19 0808 cyclobenzaprine (FLEXERIL) tablet 10 mg 10 mg Oral Q8H PRN Jose Rosa PA-C 10 mg at 01/27/19 0531 diphenhydrAMINE (BENADRYL) injection 12.5 mg 12.5 mg Intravenous Q4H PRN Jose Rosa PA-C 12.5 mg at 01/27/19 0740 Or diphenhydrAMINE (BENADRYL) tablet 25 mg 25 mg Oral Q4H PRN Jose Rosa PA-C Or diphenhydrAMINE (BENADRYL) 12.5 mg/5 mL liquid 25 mg 25 mg Oral Q4H PRN Jose Rosa PA-C docusate sodium (COLACE) capsule 100 mg 100 mg Oral BID Jose Rosa PA-C 10 0 mg at 01/28/19 0809 enalaprilat (VASOTEC) injection 1.25 mg 1.25 mg Intravenous Q6H PRN Jose hernandez PA-C famotidine (PEPCID) tablet 10 mg 10 mg Oral BID Jose Rosa PA-C 10 mg at 0 01/28/19 0808 labetalol (TRANDATE) 5 mg/mL injection 10 mg 10 mg Intravenous Q1H PRN Jose Rosa PA-C lactulose liquid 30 mL 30 mL Oral Daily PRN Jose Rosa PA-C levothyroxine (SYNTHROID) tablet 75 mcg 75 mcg Oral QAM AC Jose Rosa PA-C 75 mcg at 01/28/19 0612 lisinopril (PRINIVIL, ZESTRIL) tablet 5 mg 5 mg Oral Daily Jose Rosa PA-C 5 mg at 01/28/19 0808 magnesium hydroxide (MILK OF MAGNESIA) 400 mg/5 mL suspension 30 mL 30 mL Oral Nightly PRN Jose Rosa PA-C menthol (HALLS COUGH DROP) lozenge 1 lozenge 1 lozenge Buccal Q2H PRN Jose calero PA-C methocarbamol (ROBAXIN) tablet 1,500 mg 1,500 mg Oral Q6H PRN MILAD Delgado 1,500 mg at 01/28/19 0611 metoclopramide (REGLAN) tablet 10 mg 10 mg Oral Q4H PRN Jose Rosa PA-C 10 mg at 01/27/19 0340 morphine injection 1-4 mg 1-4 mg Intravenous Q4H PRN Jose Rosa PA-C 1 mg at 01/27/19 0823 naloxone (NARCAN) 0.4 mg/mL injection 0.4 mg 0.4 mg Intravenous PRN Crow Bates MD ondansetron (ZOFRAN ODT) disintegrating tablet 4 mg 4 mg Oral Q6H PRN Jose calero PA-C 4 mg at 01/27/19 0246 ondansetron (ZOFRAN) injection 4 mg 4 mg Intravenous Q6H PRN Jose Rosa PA-C oxyCODONE (ROXICODONE) tablet 5-20 mg 5-20 mg Oral Q4H PRN Jose Rosa PA-C 5 mg at 01/28/19 0808 phenol (CHLORASEPTIC) spray 1-2 spray 1-2 spray Mouth/Throat Q3H PRN Jose piper PA-C polyethylene glycol (MIRALAX) powder 17 g 17 g Oral Daily Jose Rosa PA-C 17 g at 01/28/19 0810 prochlorperazine tablet 5 mg 5 mg Oral Q6H PRN Jose Rosa PA-C 5 mg at 0646 senna (SENOKOT) tablet 8.6 mg 8.6 mg Oral BID PRN Jose Rosa PA-C 8.6 mg a t 01/26/192049 sodium chloride 0.9% (NS) infusion Intravenous Continuous Jose Rosa PA-C 1 00 mL/hr at 01/27/19 0646 ALLERGIES: Allergies Allergen Reactions Nickel Rash Sheep Itching and Rash WOOL PHYSICAL EXAMINATION: Temp: [37 C (98.6 F)-38.3 C (101 F)] 37.5 C (99.5 F) Pulse: [77-99] 83 Resp: [16-20] 19 BP: (125-142)/(55-83) 125/74 Intake/Output Summary (Last 24 hours) at 01/28/19 0905 Last data filed at 01/28/19 0801 Gross per 24 hour Intake 1010 ml Output 2290 ml Net -1280 ml GENERAL: Lulu Granados is in no acute distress with unlabored respirations. HEENT: HEAD/FACE: EYES: Normocephalic and atraumatic. There are no areas of recent trauma. Normal sclerae without icterus. CHEST: Clear. HEART: Regular. ABDOMEN Soft and nondistended. EXTREMITIES: No edema or swelling. SCD's BACK: The back incisions are dressed and a drain is in place with expected output. NEUROLOGICAL EXAM: MENTAL STATUS: The patient is awake, alert, and oriented. She follows simple and complex commands. She speech is fluent, her comprehends speech well, and her repeats well. She has no apparent deficits with short or prison memory. MOTOR EXAM: Motor strength is L dorsi 4/5 and L quad 4-. L hip flex 4/5 SENSORY EXAM: Sensory exam is stable 24 HOUR LABS: All Component Based Labs 01/27/19 0623 01/26/19 1104 Anion Gap 9 BUN 13 BUN/Creatinine Ratio 15.3 Calcium 9.1 Chloride 106 Carbon dioxide 24 Creatinine 0.85 Culture Result Negative for MRSA by chromogenic agar method EGFR IF NOT >60 Extra Lavender Top Tube Done Glucose 180(H) K 4.0 Na 139 ASSESSMENT: NEUROSURGICAL DIAGNOSES: S/p lumbar fusion HOSPITAL/GENERAL DIAGNOSES: Past Medical History: Diagnosis Date Allergic rhinitis Benign hypertension Bilateral lumbar radiculopathy 04/18/2017 DDD (degenerative disc disease), lumbar 04/18/2017 Dyslipidemia H/O Cervical Fusion - ACDF C4-6 01/20/2018 12/23/2017 C4-5, C5-6 Acdf Hay fever Lumbar foraminal stenosis 04/18/2017 Lumbar spondylosis Osteoporosis Persistent insomnia PONV (postoperative nausea and vomiting) Spinal stenosis Subclinical hypothyroidism Wears dentures upper & lower partials PLAN: S/p lumbar fusion, Hospital day 2 - Neurologically stable and pain control is appropriate. She is doing much better with her pain at this time. - Medically stable: Left leg seems a little weaker today. It is not dramatic and I would li ke to see if this self resolves over the next 24 hours and avoid steroids if possible. If sh e proceeds to get worse I will definitely start decadron tomorrow. - Mobilize, PT/OT - SCD's - Patient is having adequate bowel function without any concerns. They were counseled that full bowel function may not return for a few days - Drain output is as expected. Continue drain. If drain output is <30 CC in 4 hours drain can be removed this afternoon. - Disp: Patient had a big surgery. in addition, she is 78 years old and is mildly obese. B ecause of these combined factors it is very possible that she may need inpatient rehab. I w ill go ahead and put in this referral. If for some reason this doesn't work out it is possi ble that patient may also need a jail facility. ELECTRONICALLY SIGNED BY: Freddy Og PA-C, 01/28/2019 9:05Hill, Walter Sheridan MD - 01/27/2019 2946 PDTWe are evaluating the patient regarding her potential to benefit and to lerate full inpatient rehab. I am checking with our rehab therapist to see if our program is her best option .Freddy Og PA-C - 01/27/2019 8979 PDTFormatting of this note may be different from the [facility] NEUROSURGERY PROGRESS NOTE PATIENT NAME: Lulu Granados AGE: 78 y.o. DATE OF SERVICE: 01/27/2019 9:30 S: Patient is doing fairly well. She had a rough night. Pain was moderately severe throug hout the night and commonly was an 8 out of 10. There was difficulty balancing pain control with her nausea. This has improved since surgery. Currently, she rates her pain as a 6 ou t of 10. In addition, her nausea has also improved. Patient did void on her own last night but had a PVR of over 500. This was causing discomfort so the nursing staff when he had an straight cathed her. Patient feels that her bladder symptoms were causing discomfort to ra diate into her anterior thighs. Other than this, her legs feel good. The patient has been voiding and is passing flatus. O: CURRENT MEDICATIONS: Current Facility-Administered Medications Medication Dose Route Frequency Provider Last Rate Last Dose acetaminophen (TYLENOL) tablet 650 mg 650 mg Oral Q4H PRN Jose Rosa PA-C amLODIPine (NORVASC) tablet 5 mg 5 mg Oral Daily Jose Rosa PA-C atorvaSTATin (LIPITOR) tablet 20 mg 20 mg Oral Nightly Jose Rosa PA-C 20 mg at 01/26/192049 benzonatate (TESSALON) capsule 200 mg 200 mg Oral TID PRN Jose Rosa PA-C bisacodyl (DULCOLAX) suppository 10 mg 10 mg Rectal Daily PRN MILAD Delgado calcium carbonate (TUMS) chewable tablet 1,000 mg 1,000 mg Oral Q2H PRN Jose Rosa PA-C cetirizine (zyrTEC) tablet 10 mg 10 mg Oral Daily Jose Rosa PA-C cyclobenzaprine (FLEXERIL) tablet 10 mg 10 mg Oral Q8H PRN Jose Rosa PA-C 10 mg at 01/27/19 0531 diphenhydrAMINE (BENADRYL) injection 12.5 mg 12.5 mg Intravenous Q4H PRN Jose Rosa PA-C 12.5 mg at 01/27/19 0740 Or diphenhydrAMINE (BENADRYL) tablet 25 mg 25 mg Oral Q4H PRN Jose Rosa PA-C Or diphenhydrAMINE (BENADRYL) 12.5 mg/5 mL liquid 25 mg 25 mg Oral Q4H PRN Jose Rosa PA-C docusate sodium (COLACE) capsule 100 mg 100 mg Oral BID Jose Rosa PA-C 10 0 mg at 01/26/192049 enalaprilat (VASOTEC) injection 1.25 mg 1.25 mg Intravenous Q6H PRN Jose hernandez PA-C famotidine (PEPCID) tablet 10 mg 10 mg Oral BID Jose Rosa PA-C 10 mg at 0 01/26/192049 labetalol (TRANDATE) 5 mg/mL injection 10 mg 10 mg Intravenous Q1H PRN Joes Rosa PA-C lactulose liquid 30 mL 30 mL Oral Daily PRN Jose Rosa PA-C levothyroxine (SYNTHROID) tablet 75 mcg 75 mcg Oral QAM AC Jose Rosa PA-C 75 mcg at 01/27/19 0630 lisinopril (PRINIVIL, ZESTRIL) tablet 5 mg 5 mg Oral Daily Jose Rosa PA-C Stopped at 01/26/192051 [START ON 01/28/2019] magnesium hydroxide (MILK OF MAGNESIA) 400 mg/5 mL suspension 30 m L 30 mL Oral Nightly PRN Jose Rosa PA-C menthol (HALLS COUGH DROP) lozenge 1 lozenge 1 lozenge Buccal Q2H PRN Jose calero PA-C methocarbamol (ROBAXIN) tablet 1,500 mg 1,500 mg Oral Q6H PRN MILAD Delgado 1,500 mg at 01/27/19 0247 metoclopramide (REGLAN) tablet 10 mg 10 mg Oral Q4H PRN Jose Rosa PA-C 10 mg at 01/27/19 0340 morphine injection 1-4 mg 1-4 mg Intravenous Q4H PRN Jose Rosa PA-C 1 mg at 01/27/19 0823 ondansetron (ZOFRAN ODT) disintegrating tablet 4 mg 4 mg Oral Q6H PRN Jose calero PA-C 4 mg at 01/27/19 0246 ondansetron (ZOFRAN) injection 4 mg 4 mg Intravenous Q6H PRN Jose oRsa PA-C oxyCODONE (ROXICODONE) tablet 5-20 mg 5-20 mg Oral Q4H PRN Jose Rosa PA-C 5 mg at 01/27/19 0205 phenol (CHLORASEPTIC) spray 1-2 spray 1-2 spray Mouth/Throat Q3H PRN Jose piper PA-C polyethylene glycol (MIRALAX) powder 17 g 17 g Oral Daily Jose Rosa PA-C 17 g at 01/26/19 2107 prochlorperazine tablet 5 mg 5 mg Oral Q6H PRN Jose Rosa PA-C 5 mg at 0646 senna (SENOKOT) tablet 8.6 mg 8.6 mg Oral BID PRN Jose Rosa PA-C 8.6 mg a t 01/26/192049 sodium chloride 0.9% (NS) infusion Intravenous Continuous Jose Rosa PA-C 1 00 mL/hr at 01/27/19 0646 ALLERGIES: Allergies Allergen Reactions Nickel Rash Sheep Itching and Rash WOOL PHYSICAL EXAMINATION: Temp: [35.7 C (96.3 F)-36.8 C (98.2 F)] 36.8 C (98.2 F) Pulse: [60-78] 77 Resp: [13-24] 20 BP: (110-161)/(46-84) 161/67 Intake/Output Summary (Last 24 hours) at 01/27/19 0930 Last data filed at 01/27/19 0836 Gross per 24 hour Intake 2763 ml Output 1495 ml Net 1268 ml GENERAL: Lulu Granados is in no acute distress with unlabored respirations. HEENT: HEAD/FACE: EYES: Normocephalic and atraumatic. There are no areas of recent trauma. Normal sclerae without icterus. CHEST: Clear. HEART: Regular. ABDOMEN Soft and nondistended. EXTREMITIES: No edema or swelling. SCD's BACK: The back incisions are dressed and a drain is in place with expected output. NEUROLOGICAL EXAM: MENTAL STATUS: The patient is awake, alert, and oriented. She follows simple and complex commands. She speech is fluent, her comprehends speech well, and her repeats well. She has no apparent deficits with short or prison memory. MOTOR EXAM: Motor strength is stable SENSORY EXAM: Sensory exam is stable 24 HOUR LABS: All Component Based Labs 01/27/19 0623 01/26/19 1104 Anion Gap 9 BUN 13 BUN/Creatinine Ratio 15.3 Calcium 9.1 Chloride 106 Carbon dioxide 24 Creatinine 0.85 Culture Result Negative for MRSA by chromogenic agar method EGFR IF NOT >60 Extra Lavender Top Tube Done Glucose 180(H) K 4.0 Na 139 ASSESSMENT: NEUROSURGICAL DIAGNOSES: S/p lumbar fusion HOSPITAL/GENERAL DIAGNOSES: Past Medical History: Diagnosis Date Allergic rhinitis Benign hypertension Bilateral lumbar radiculopathy 04/18/2017 DDD (degenerative disc disease), lumbar 04/18/2017 Dyslipidemia H/O Cervical Fusion - ACDF C4-6 01/20/2018 12/23/2017 C4-5, C5-6 Acdf Hay fever Lumbar foraminal stenosis 04/18/2017 Lumbar spondylosis Osteoporosis Persistent insomnia PONV (postoperative nausea and vomiting) Spinal stenosis Subclinical hypothyroidism Wears dentures upper & lower partials PLAN: S/p lumbar fusion, Hospital day 1 - Neurologically stable and pain control is appropriate. We discussed her symptoms and med ications at length. For now, we will leave things as they are. In a few days, we might try her on tramadol which she has used in the past. I have doubts at this current time that th is will be enough to control her pain. Patient realizes that we may have to allow her pain to reside at a 5 or 6 since the amount of narcotics required to get her pain to 4 may cause more nausea then she is willing to deal with. We have multiple options for treating her saad n and nausea. - Medically stable - Mobilize, PT/OT - SCD's - Patient is having adequate bowel function without any concerns. They were counseled that full bowel function may not return for a few days - Drain output is as expected. Continue drain - Disp: Patient had a big surgery. in addition, she is 78 years old and is mildly obese. B ecause of these combined factors it is very possible that she may need inpatient rehab. I w ill go ahead and put in this referral. If for some reason this doesn't work out it is possi ble that patient may also need a jail facility. ELECTRONICALLY SIGNED BY: Freddy Og PA-C, 01/27/2019 9:30 in this encounter Plan of Treatment +--------+---------+ + + + | Date | Type | Specialty | Care Team | Description | +--------+---------+ + + + | 02/23/ | Office | Neurosurgery | Jose Rosa | | | 2018 | Visit | | KATHER[facility] [address] | | | | | [address] | | | | | | [place] | | | | | | [phone] | | | | | | | | +--------+---------+ + + + | 04/22/ | Office | Neurosurgery | Crow Bates MD | | | 2018 | Visit | | [address] | | | | | | [address] [place] | | | | | | [address] | | | | | | | | +--------+---------+ + + + as of this encounter Procedures + +--------+ + + + | Procedure Name | Priori | Date/Time | Associated Diagnosis | Comments | | | ty | | | | + +--------+ + + + | LABS - EXTERNAL SCAN | | 04/23/2019 | | Results for this | | | | 0000 PDT | | procedure are in the | | | | | | results section. | + +--------+ + + + | CBC WITH | Routin | 01/30/2019 | | Results for this | | DIFFERENTIAL | e | 0642 PDT | | procedure are in the | | | | | | results section. | + +--------+ + + + | COMPREHENSIVE | Routin | 01/30/2019 | | Results for this | | METABOLIC PANEL | e | 0642 PDT | | procedure are in the | | | | | | results section. | + +--------+ + + + | EXTRA LAVENDER TOP | Routin | 01/27/2019 | | Results for this | | TUBE | e | 0623 PDT | | procedure are in the | | | | | | results section. | + +--------+ + + + | BASIC METABOLIC | Routin | 01/27/2019 | | Results for this | | PANEL | e | 0623 PDT | | procedure are in the | | | | | | results section. | + +--------+ + + + | XR LUMBAR SPINE 2 OR | STAT | 01/26/2019 | | Results for this | | 3 VW | | 1745 PDT | | procedure are in the | | | | | | results section. | + +--------+ + + + | FL JORGE STATNoel NO | Routin | 01/26/2019 | | Results for this | | CHARGE | e | 1614 PDT | | procedure are in the | | | | | | results section. | + +--------+ + + + | FUSION LUMBAR W/ | | 01/26/2019 | Lumbar | | | LATERAL APPROACH | | 1215 PDT | radiculopathy | | | (XLIF) | | | (M54.16), Scoliosis, | | | | | | unspecified | | | | | | scoliosis type, | | | | | | unspecified spinal | | | | | | region (M41.9), | | | | | | Lumbar spondylosis | | | | | | (M47.816), Neural | | | | | | foraminal stenosis | | | | | | of lumbar spine | | | | | | (M99.83), Neurogenic | | | | | | claudication | | | | | | (M48.062) | | + +--------+ + + + +---+--------+ | | | | | Specia | | | l | | | Needs | | | REP: | | | Selvin | | | Conkli | | | n | | | Implan | | | ts: | | | Neurov | | | ision, | | | | | | XLIF/P | | | recept | | | , TLIF | | | Cages | +---+--------+ + +--------+ +---+ + | CULTURE, MRSA | Routin | 01/26/2019 | | Results for this | | | e | 1104 PDT | | procedure are in the | | | | | | results section. | + +--------+ +---+ + | IMAGING REPORT - | | 01/21/2019 | | Results for this | | EXTERNAL SCAN | | 0000 PDT | | procedure are in the | | | | | | results section. | + +--------+ +---+ + | IMAGING REPORT - | | 01/21/2019 | | Results for this | | EXTERNAL SCAN | | 0000 PDT | | procedure are in the | | | | | | results section. | + +--------+ +---+ + | LABS - EXTERNAL SCAN | | 01/21/2019 | | Results for this | | | | 0000 PDT | | procedure are in the | | | | | | results section. | + +--------+ +---+ + | ECG - EXTERNAL SCAN | | 01/13/2019 | | Results for this | | | | 0000 PDT | | procedure are in the | | | | | | results section. | + +--------+ +---+ + | ECG - EXTERNAL SCAN | | 01/13/2019 | | Results for this | | | | 0000 PDT | | procedure are in the | | | | | | results section. | + +--------+ +---+ + in this encounter Results LABS - EXTERNAL SCAN (04/23/2019) + + + | Narrative | Performed At | + + + | Ordered by an | | | unspecified provider. | | + + + Comprehensive Metabolic Panel (01/30/2019641) + +---------+ + + | Component | Value | Ref Range | Performed At | + +---------+ + + | Na | 138 | 136 - 145 mmol/L | [facility] | | | | [facility] | | [facility] - | | | | | [facility]ORY | + +---------+ + + | K | 3.3 (L) | 3.4 - 5.1 mmol/L | [facility] | | | [facility] | | | | [facility] - | | | | | [facility]ORY | + +---------+ + + | Cl | 102 | 98 - 107 mmol/L | [facility] | | | [facility] | | | | [facility] - | | | | | [facility]ORY | + +---------+ + + | CO2 | 29 | 20 - 31 mmol/L | [facility] | | | [facility] | | | [facility] - | | | | | [facility]ORY | + +---------+ + + | Anion Gap | 7 | 3 - 16 mmol/L | [facility] | | | [facility] | | | | | [facility] - | | | | | [facility] | + +---------+ + + | Glucose | 107 (H) | 60 - 106 mg/dL | [facility] | | | | [facility] | | | | | [facility] - | | | | | LAB[facility]ORY | + +---------+ + + | BUN | 10 | 9 - 23 mg/dL | [facility] | | | [facility] | | | | | [facility] - | | | | | [facility] | + +---------+ + + | Creatinine | 0.69 | 0.55 - 1.02 mg/dL | [facility] | | | | | [facility] | | | | | [facility] - | | | | | LAB[facility]ORY | + +---------+ + + | eGFR if not | >60 | >=60 mL/min/1.73m2 | [facility] [place] | | [facility] | | | | | [facility] - | | | | | [facility] | + +---------+ + + | Ca | 8.8 | 8.7 - 10.4 mg/dL | [facility] | | | | | [facility] | | | | | [facility] - | | | | | [facility]ORY | + +---------+ + + | Albumin | 3.6 | 3.2 - 4.8 g/dL | [facility] | | | [facility] | | | | | [facility] - | | | | | [facility] | + +---------+ + + | Bilirubin Total | 0.7 | 0.3 - 1.2 mg/dL | [facility] | | | [facility] | | | | | [facility] - | | | | | [facility] | + +---------+ + + | Total Protein | 5.6 (L) | 5.7 - 8.2 g/dL | [facility] | | | [facility] | | | | | [facility] - | | | | | LAB[facility]ORY | + +---------+ + + | AST | 45 (H) | 0 - 34 U/L | [facility] | | | | [facility] - | | | | | [facility]ORY | + +---------+ + + | ALT | 22 | 10 - 49 U/L | [facility] | | | | [facility] | | | | | [facility] - | | | | | [facility] | + +---------+ + + | Alkaline Phosphatase | 78 | 46 - 116 U/L | [facility] | | | | | [facility] | | | | | CENTER - | | | | | LAB[facility]ATORY | + +---------+ + + | Globulin | 2.0 (L) | 2.1 - 3.8 g/dL | [facility] | | | | | [facility] | | | | | [facility] - | | | | | LAB[facility]ATORY | + +---------+ + + | Albumin/Globulin | 1.8 | 0.8 - 1.9 | [facility] | | Ratio | | | [facility] | | | | | CENTER - | | | | | LABORATORY | + +---------+ + + | BUN/Creatinine Ratio | 14.5 | | [facility] | | | | | [facility] | | | | | CENTER - | | | | | LAB[facility]ATORY | + +---------+ + + + + | Specimen | + + | Blood | + + + + + + + | Performing | Address | City/State/Zipcode | Phone Number | | Organization | | | | + + + + + | [facility] | [address] | [place] | [phone] | | [facility] | | [address] | | | - LABORATORY | | | | + + + + + CBC with Differential (01/30/2019641) + + + + + | Component | Value | Ref Range | Performed At | + + + + + | WBC | 7.2 | 4.0 - 11.0 K/uL | [facility] | | | | [facility] | | | | | [facility] - | | | | | LAB[facility]ATORY | + + + + + | RBC | 3.33 (L) | 3.70 - 5.20 M/uL | [facility] | | | | | [facility] | | | | | [facility] - | | | | | LAB[facility]ATORY | + + + + + | Hemoglobin | 9.7 (L) | 11.5 - 16.0 g/dL | [facility] | | | | | [facility] | | | | | [facility] - | | | | | LAB[facility]ATORY | + + + + + | Hematocrit | 30.7 (L) | 34.0 - 47.0 % | [facility] | | | | | [facility] | | | | | [facility] - | | | | | LAB[facility]ATORY | + + + + + | MCV | 92.2 | 83.0 - 101.0 fL | [facility] | | | | | [facility] | | | | | [facility] - | | | | | LAB[facility]ATORY | + + + + + | MCH | 29.1 | 28.0 - 35.0 pg | [facility] | | | | | [facility] | | | | | [facility] - | | | | | LAB[facility]ATORY | + + + + + | MCHC | 31.6 (L) | 32.0 - 36.0 g/dL | [facility] | | | | | [facility] | | | | | [facility] - | | | | | LAB[facility]ATORY | + + + + + | RDW-CV | 13.0 | <15.0 % | [facility] | | | | | [facility] | | | | | [facility] - | | | | | LAB[facility]ATORY | + + + + + | RDW-SD | 44.4 | 35.1 - 46.3 fL | [facility] | | | | | [facility] | | | | | [facility] - | | | | | LAB[facility]ATORY | + + + + + | Platelet Count | 261 | 140 - 440 K/uL | [facility] | | | [facility] | | | | | [facility] - | | | | | LAB[facility]ATORY | + + + + + | MPV | 10.8 | 6.5 - 12.4 fL | [facility] | | | | | [facility] | | | | | [facility] - | | | | | LAB[facility]ATORY | + + + + + | % Neutrophils | 73.8 | 45.0 - 82.0 % | [facility] | | | | | [facility] | | | | | [facility] - | | | | | LAB[facility]ATORY | + + + + + | % Lymphocytes | 14.8 (L) | 20.0 - 45.0 % | [facility] | | | | | [facility] | | | | | [facility] - | | | | | LAB[facility]ATORY | + + + + + | % Monocytes | 8.4 | 4.0 - 12.0 % | [facility] | | | | | [facility] | | | | | [facility] - | | | | | LAB[facility]ATORY | + + + + + | % Eosinophils | 1.4 | 0.0 - 5.0 % | [facility] | | | | | [facility] | | | | | [facility] - | | | | | LAB[facility]ATORY | + + + + + | % Basophils | 0.6 | 0.0 - 1.0 % | [facility] | | | | | [facility] | | | | | [facility] - | | | | | LAB[facility]ATORY | + + + + + | % Immature | 1.0 (H)Comment: | 0.0 - 0.4 % | [facility] | | Granulocytes | Preliminary studIes have | | [facility] | | | indicated the IG% | | CENTER - | | | and/or IG# show promise | | LABORATORY | | | as an early screen for | | | | | infection. | | | + + + + + | Absolute Neutrophils | 5.33 | 1.80 - 8.50 K/uL | [facility] | | | | | [facility] | | | | | [facility] - | | | | | LAB[facility]ATORY | + + + + + | Absolute Lymphocytes | 1.07 | 0.60 - 3.20 K/uL | [facility] | | | | | [facility] | | | | | [facility] - | | | | | LAB[facility]ATORY | + + + + + | Absolute Monocytes | 0.61 | 0.00 - 1.00 K/uL | [facility] | | | | | [facility] | | | | | [facility] - | | | | | LAB[facility]ATORY | + + + + + | Absolute Eosinophils | 0.10 | 0.00 - 0.40 K/uL | [facility] | | | | | [facility] | | | | | [facility] - | | | | | LAB[facility]ATORY | + + + + + | Absolute Basophils | 0.04 | 0.00 - 0.10 K/uL | [facility] | | | | | [facility] | | | | | [facility] - | | | | | LAB[facility]ATORY | + + + + + | Absolute Immature | 0.07 (H) | 0.00 - 0.03 K/uL | [facility] | | Granulocytes | | | [facility] | | | | | CENTER - | | | | | LABORATORY | + + + + + | % nRBC | 0 | 0 - 2 per 100 WBC's | [facility] | | | | | [facility] | | | | | [facility] - | | | | | LAB[facility]ATORY | + + + + + | Absolute nRBC | 0.00 | 0.00 - 0.01 K/uL | [facility] | | | | | [facility] | | | | | [facility] - | | | | | LAB[facility]ATORY | + + + + + + + | Specimen | + + | Blood | + + + + + + + | Performing | Address | City/State/Zipcode | Phone Number | | Organization | | | | + + + + + | [facility] | [address] | [place] | [phone] | | [facility] | | [address] | | | - LABORATORY | | | | + + + + + Extra Lavender Top Tube (01/27/2019622) + +-------+ + + | Component | Value | Ref Range | Performed At | + +-------+ + + | Extra Lavender Top | Done | | [facility] | | Tube | | | [facility] | | | | | CENTER - | | | | | LABORATORY | + +-------+ + + + + | Specimen | + + | Blood | + + + + + + + | Performing | Address | City/State/Zipcode | Phone Number | | Organization | | | | + + + + + | [facility] | [address] | [place] | [phone] | | [facility] | | [address] | | | - LABORATORY | | | | + + + + + Basic Metabolic Panel (01/27/2019622) + +---------+ + + | Component | Value | Ref Range | Performed At | + +---------+ + + | Na | 139 | 136 - 145 mmol/L | [facility] | | | | | [facility] | | | | | [facility] - | | | | | LAB[facility]ATORY | + +---------+ + + | K | 4.0 | 3.4 - 5.1 mmol/L | [facility] | | | | | [facility] | | | | | [facility] - | | | | | LABORATORY | + +---------+ + + | Cl | 106 | 98 - 107 mmol/L | [facility] | | | | | [facility] | | | | | C[facility] - | | | | | LABORATORY | + +---------+ + + | CO2 | 24 | 20 - 31 mmol/L | [facility] | | | | | [facility] | | | | | [facility] - | | | | | LABORATORY | + +---------+ + + | Anion Gap | 9 | 3 - 16 mmol/L | [facility] | | | | | [facility] | | | | | [facility] - | | | | | LABORATORY | + +---------+ + + | Glucose | 180 (H) | 60 - 106 mg/dL | [facility] | | | | | [facility] | | | | | C[facility] - | | | | | LABORATORY | + +---------+ + + | BUN | 13 | 9 - 23 mg/dL | [facility] | | | | | [facility] | | | | | [facility] - | | | | | LABORATORY | + +---------+ + + | Creatinine | 0.85 | 0.55 - 1.02 mg/dL | [facility] | | | | | [facility] | | | | | C[facility] - | | | | | LABORATORY | + +---------+ + + | eGFR if not | >60 | >=60 mL/min/1.73m2 | [facility] | | [place] | | | [facility] | | | | | CENTER - | | | | | LABORATORY | + +---------+ + + | Ca | 9.1 | 8.7 - 10.4 mg/dL | [facility] | | | | | [facility] | | | | | CENTER - | | | | | LABORATORY | + +---------+ + + | BUN/Creatinine Ratio | 15.3 | | [facility] | | | | | [facility] | | | | | C[facility] - | | | | | LABORATORY | + +---------+ + + + + | Specimen | + + | Blood | + + + + + + + | Performing | Address | City/State/Zipcode | Phone Number | | Organization | | | | + + + + + | [facility] | [address] | [place] | [phone] | | [facility] | | [address] | | | - LABORATORY | | | | + + + + + XR Lumbar Spine 2 or 3 Vw (01/26/2019 1745) + + + | Narrative | Performed At | + + + | CLINICAL INFORMATION: sp lumbar surgery with hardware.. | [facility] | | COMPARISON: MRI dated 01/07/2018 and radiographs 08/12/2018. | | | FINDINGS: AP and lateral views of the lumbosacral spine. | | | Posterior pedicle screw and sejal fusion changes at L2-S1 with interbody | | | graft spacers. The right L3 pedicle screw demonstrates lucency | | | surrounding the tip on the AP view, may be artifactual. | | | Significant interval improved alignment of the lumbar spine with | | | decreased levocurvature. IMPRESSION - Lumbar spine fusion changes | | | as described above with decreased levocurvature. Dictated and | | | Signed by: Michael Justin MD Electronically signed: 01/26/2019 | | | 6:23 PM | | + + + + + | Procedure Note | + + | Rudy, Rad Results In - 01/26/2019 1827 PDT CLINICAL INFORMATION: sp lumbar surgery | | with hardware..COMPARISON: MRI dated 01/07/2018 and radiographs 08/12/2018.FINDINGS: AP | | and lateral views of the lumbosacral spine. Posterior pedicle screw and sejal fusion | | changes at L2-S1 with interbody graftspacers. The right L3 pedicle screw demonstrates | | lucency surrounding the tip onthe AP view, may be artifactual.Significant interval | | improved alignment of the lumbar spine with decreasedlevocurvature.IMPRESSION - Lumbar | | spine fusion changes as described above with decreasedlevocurvature.Dictated and Signed | | by: Michael Justin MD Electronically signed: 01/26/2019 6:23 PM | |spacers. The right L3 pedicle screw demonstrates lucency surrounding the tip on | |the AP view, may be artifactual. | | | |Significant interval improved alignment of the lumbar spine with decreased | |levocurvature. | | | |IMPRESSION - Lumbar spine fusion changes as described above with decreased | |levocurvature. | | | |Dictated and Signed by: Michael Justin MD | | Electronically signed: 01/26/2019 6:23 PM | + + + +---------+ + + | Performing | Address | City/State/Zipcode | Phone Number | | Organization | | | | + +---------+ + + | [facility] | | | | + +---------+ + + FL C-Arm Stats No Charge (01/26/2019 1614) + + + | Narrative | Performed At | + + + | This exam has been auto-finalized. It was entered for statistical | [facility] | | purposes only. | | + + + + +---------+ + + | Performing | Address | City/State/Zipcode | Phone Number | | Organization | | | | + +---------+ + + | [facility] | | | | + +---------+ + + Culture, MRSA (01/26/2019 1104) + + + + + | Component | Value | Ref Range | Performed At | + + + + + | Culture | Negative for MRSA by | | [facility] | | | chromogenic agar method | | [facility] | | | | | C[facility] - | | | | | LABORATORY | + + + + + + + | Specimen | + + | Tissue - Nares | + + + + + + + | Performing | Address | City/State/Zipcode | Phone Number | | Organization | | | | + + + + + | [facility] | [address] | [place] | [phone] | | [facility] | | [address] | | | - LABORATORY | | | | + + + + + LABS - EXTERNAL SCAN (01/21/2019) + + + | Narrative | Performed At | + + + | Ordered by an | | | unspecified provider. | | + + + IMAGING REPORT - EXTERNAL SCAN (01/21/2019) + + + | Narrative | Performed At | + + + | Ordered by an | | | unspecified provider. | | + + + IMAGING REPORT - EXTERNAL SCAN (01/21/2019) + + + | Narrative | Performed At | + + + | Ordered by an | | | unspecified provider. | | + + + ECG - EXTERNAL SCAN (01/13/2019) + + + | Narrative | Performed At | + + + | Ordered by an | | | unspecified provider. | | + + + ECG - EXTERNAL SCAN (01/13/2019) + + + | Narrative | Performed At | + + + | Ordered by an | | | unspecified provider. | | + + + in this encounter Visit Diagnoses + + | Diagnosis | + + | Gait abnormality - Primary | + + | Abnormality of gait | + + | Bilateral lumbar radiculopathy | + + Admitting Diagnoses + + | Diagnosis | + + | Lumbar radiculopathy (M54.16), Scoliosis, unspecified scoliosis type, unspecified | | spinal region (M41.9), Lumbar spondylosis (M47.816), Neural foraminal stenosis of lumbar | | spine (M99.83), Neurogenic claudication (M48.062) | + + Administered Medications + +--------+ + +------+------+ | Medication Order | MAR | Action | Dose | Rate | Site | | | Action | Date | | | | + +--------+ + +------+------+ | acetaminophen (TYLENOL) tablet | Given | | 1,000 mg | | | | 1,000 mg 1,000 mg, Oral, ONCE, | | 9 10:58 | | | | | 01/26/19 at 1030, For 1 dose, | | PDT | | | | | Pre-op | | | | | | + +--------+ + +------+------+ +---+---+ | | | +---+---+ + +-------+ +--------+---+---+ | acetaminophen (TYLENOL) tablet | Given | | 650 mg | | | | 650 mg 650 mg, Oral, EVERY 4 | | 9 10:26 | | | | | HOURS PRN, Pain, Fever, Starting | | PDT | | | | | 01/26/19 at 1805, | | | | | | | Post-op/Phase II | | | | | | + +-------+ +--------+---+---+ +-------+ +--------+---+---+ | Given | | 650 mg | | | | | 9 16:03 | | | | | | PDT | | | | +-------+ +--------+---+---+ | Given | | 650 mg | | | | | 9 1:10 | | | | | | PDT | | | | +-------+ +--------+---+---+ +---+---+ | | | +---+---+ + +-------+ +------+---+---+ | amLODIPine (NORVASC) tablet 5 | Given | | 5 mg | | | | mg 5 mg, Oral, DAILY, First dose | | 9 8:08 | | | | | on 01/27/19 at 0900, | | PDT | | | | | Post-op/Phase II | | | | | | + +-------+ +------+---+---+ +-------+ +------+---+---+ | Given | | 5 mg | | | | | 9 10:22 | | | | | | PDT | | | | +-------+ +------+---+---+ | Given | | 5 mg | | | | | 9 8:18 | | | | | | PDT | | | | +-------+ +------+---+---+ +---+---+ | | | +---+---+ + +-------+ +-------+---+---+ | atorvaSTATin (LIPITOR) tablet | Given | | 20 mg | | | | 20 mg 20 mg, Oral, NIGHTLY, | | 9 20:05 | | | | | First dose on 01/26/19 at | | PDT | | | | | 2100, Post-op/Phase II | | | | | | + +-------+ +-------+---+---+ +-------+ +-------+---+---+ | Given | | 20 mg | | | | | 9 20:02 | | | | | | PDT | | | | +-------+ +-------+---+---+ | Given | | 20 mg | | | | | 9 20:15 | | | | | | PDT | | | | +-------+ +-------+---+---+ +---+---+ | | | +---+---+ + +-------+ +--------+---+---+ | benzonatate (TESSALON) capsule | Given | | 200 mg | | | | 200 mg 200 mg, Oral, 3 TIMES | | 9 8:17 | | | | | DAILY PRN, Cough, Starting Mon | | PDT | | | | | 01/26/19 at 1805, Post-op/Phase II | | | | | | + +-------+ +--------+---+---+ +---+---+ | | | +---+---+ + +---------+ +-----+-------+---+ | ceFAZolin (ANCEF, KEFZOL) 1 g | New Bag | | 1 g | 100 | | | in sodium chloride 0.9% 50 mL | | 9 21:59 | | mL/hr | | | IVPB 1 g, Intravenous, | | PDT | | | | | Administer over 30 Minutes, EVERY | | | | | | | 8 HOURS INTERVAL, First dose on | | | | | | | 01/26/19 at 2000, For 2 doses, | | | | | | | Start 8 hours after previous | | | | | | | dose. Last dose to be given | | | | | | | within 24 hours of surgery end | | | | | | | time. Activate system and mix | | | | | | | before use. | | | | | | + +---------+ +-----+-------+---+ +---------+ +-----+-------+---+ | New Bag | | 1 g | 100 | | | | 9 5:35 | | mL/hr | | | | PDT | | | | +---------+ +-----+-------+---+ +---+---+ | | | +---+---+ + +-------+ +-------+---+---+ | cetirizine (zyrTEC) tablet 10 | Given | | 10 mg | | | | mg 10 mg, Oral, DAILY, First | | 9 8:08 | | | | | dose on Sat01/27/19 at 0900, | | PDT | | | | | Post-op/Phase II | | | | | | + +-------+ +-------+---+---+ +-------+ +-------+---+---+ | Given | | 10 mg | | | | | 9 10:22 | | | | | | PDT | | | | +-------+ +-------+---+---+ | Given | | 10 mg | | | | | 9 8:17 | | | | | | PDT | | | | +-------+ +-------+---+---+ +---+---+ | | | +---+---+ + +-------+ +-------+---+---+ | cyclobenzaprine (FLEXERIL) | Given | | 10 mg | | | | tablet 10 mg 10 mg, Oral, EVERY | | 9 5:31 | | | | | 8 HOURS PRN, Muscle spasms, | | PDT | | | | | Starting 01/26/19 at 1805, Use | | | | | | | if methocarbamol ineffective or | | | | | | | not ordered. | | | | | | + +-------+ +-------+---+---+ + +---+ | | | + +---+ | diphenhydrAMINE (BENADRYL) 12.5 | | | mg/5 mL liquid 25 mg 25 mg, | | | Oral, EVERY 4 HOURS PRN, Itching, | | | Starting 01/26/19 at 1805, | | | Oral route is preferred. | | + +---+ | | | + +---+ + +-------+ +---------+---+---+ | diphenhydrAMINE (BENADRYL) | Given | | 12.5 mg | | | | injection 12.5 mg 12.5 mg, | | 9 7:40 | | | | | Intravenous, EVERY 4 HOURS PRN, | | PDT | | | | | Itching, Starting 01/26/19 at | | | | | | | 1805, Oral route is preferred. | | | | | | + +-------+ +---------+---+---+ + +---+ | | | + +---+ | diphenhydrAMINE (BENADRYL) | | | tablet 25 mg 25 mg, Oral, EVERY | | | 4 HOURS PRN, Itching, Starting | | | 01/26/19 at 1805, Oral route | | | is preferred. | | + +---+ | | | + +---+ + +-------+ +--------+---+---+ | docusate sodium (COLACE) | Given | | 100 mg | | | | capsule 100 mg 100 mg, Oral, 2 | | 9 10:30 | | | | | TIMES DAILY, First dose on Mon | | PDT | | | | | 01/26/19 at 2100, First line agent | | | | | | | for constipation | | | | | | + +-------+ +--------+---+---+ +-------+ +--------+---+---+ | Given | | 100 mg | | | | | 9 20:14 | | | | | | PDT | | | | +-------+ +--------+---+---+ | Given | | 100 mg | | | | | 9 8:17 | | | | | | PDT | | | | +-------+ +--------+---+---+ +---+---+ | | | +---+---+ + +-------+ +-------+---+---+ | famotidine (PEPCID) tablet 10 | Given | | 10 mg | | | | mg 10 mg, Oral, 2 TIMES DAILY, | | 9 10:24 | | | | | First dose on 01/26/19 at | | PDT | | | | | 2100, Post-op/Phase II | | | | | | + +-------+ +-------+---+---+ +-------+ +-------+---+---+ | Given | | 10 mg | | | | | 9 20:15 | | | | | | PDT | | | | +-------+ +-------+---+---+ | Given | | 10 mg | | | | | 9 8:18 | | | | | | PDT | | | | +-------+ +-------+---+---+ +---+---+ | | | +---+---+ + +-------+ +--------+---+---+ | gabapentin (NEURONTIN) capsule | Given | | 600 mg | | | | 600 mg 600 mg, Oral, ONCE, Mon | | 9 10:58 | | | | | 01/26/19 at 1030, For 1 dose, | | PDT | | | | | Pre-op | | | | | | + +-------+ +--------+---+---+ +---+---+ | | | +---+---+ + +-------+ +--------+---+---+ | HYDROmorphone (DILAUDID) | Given | | 0.3 mg | | | | injection 0.2-0.5 mg 0.2-0.5 mg, | | 9 16:43 | | | | | Intravenous, EVERY 5 MIN PRN, | | PDT | | | | | Pain, Starting 01/26/19 at | | | | | | | 1633, Maximum total dose 4 mg. | | | | | | | PACU IV Narcotic Priority: Only | | | | | | | use fentanyl for immediate | | | | | | | post-op pain (one dose) or | | | | | | | breakthrough pain when any other | | | | | | | IV narcotics ordered have been | | | | | | | ineffective (if ordered). If | | | | | | | both morphine and hydromorphone | | | | | | | are ordered, use morphine first, | | | | | | | and use hydromorphone if morphine | | | | | | | ineffective. | | | | | | + +-------+ +--------+---+---+ +-------+ +--------+---+---+ | Given | | 0.2 mg | | | | | 9 16:50 | | | | | | PDT | | | | +-------+ +--------+---+---+ | Given | | 0.3 mg | | | | | 9 17:15 | | | | | | PDT | | | | +-------+ +--------+---+---+ +---+---+ | | | +---+---+ + +---------+ +--------+-------+---+ | lactated ringers (LR) infusion | New Bag | | 1,000 | 100 | | | at 100 mL/hr, Intravenous, | | 9 10:59 | mLs | mL/hr | | | CONTINUOUS, Starting 01/26/19 | | PDT | | | | | at 1030, Pre-op | | | | | | + +---------+ +--------+-------+---+ +---------+ +---+---+---+ | New Bag | | | | | | | 9 12:23 | | | | | | PDT | | | | +---------+ +---+---+---+ | New Bag | | | | | | | 9 13:49 | | | | | | PDT | | | | +---------+ +---+---+---+ +---+---+ | | | +---+---+ + +-------+ +--------+---+---+ | levothyroxine (SYNTHROID) | Given | | 75 mcg | | | | tablet 75 mcg 75 mcg, Oral, | | 9 6:12 | | | | | DAILY BEFORE BREAKFAST, First | | PDT | | | | | dose on Sat01/27/19 at 0730, Give | | | | | | | before breakfast. | | | | | | + +-------+ +--------+---+---+ +-------+ +--------+---+---+ | Given | | 75 mcg | | | | | 9 6:16 | | | | | | PDT | | | | +-------+ +--------+---+---+ | Given | | 75 mcg | | | | | 9 6:08 | | | | | | PDT | | | | +-------+ +--------+---+---+ +---+---+ | | | +---+---+ + +-------+ +------+---+---+ | lisinopril (PRINIVIL, ZESTRIL) | Given | | 5 mg | | | | tablet 5 mg 5 mg, Oral, DAILY, | | 9 8:08 | | | | | First dose on Sat01/26/19 at | | PDT | | | | | 1830, Post-op/Phase II | | | | | | + +-------+ +------+---+---+ +-------+ +------+---+---+ | Given | | 5 mg | | | | | 9 10:23 | | | | | | PDT | | | | +-------+ +------+---+---+ | Given | | 5 mg | | | | | 9 8:18 | | | | | | PDT | | | | +-------+ +------+---+---+ +---+---+ | | | +---+---+ + +---------+ + +--------+---+ | methocarbamol (ROBAXIN) 1,000 | New Bag | | 1,000 mg | 146.7 | | | mg in sodium chloride 0.9% 100 mL | | 9 21:03 | | mL/hr | | | IVPB 1,000 mg, Intravenous, | | PDT | | | | | Administer over 45 Minutes, ONCE, | | | | | | | Sat01/26/19 at 1715, For 1 dose, | | | | | | | Post-op/Phase II | | | | | | + +---------+ + +--------+---+ +---+---+ | | | +---+---+ + +-------+ + +---+---+ | methocarbamol (ROBAXIN) tablet | Given | | 1,500 mg | | | | 1,500 mg 1,500 mg, Oral, EVERY 6 | | 9 22:28 | | | | | HOURS PRN, Muscle spasms, | | PDT | | | | | Starting 01/26/19 at 1805, | | | | | | | First line agent | | | | | | + +-------+ + +---+---+ +-------+ + +---+---+ | Given | | 1,500 mg | | | | | 9 8:17 | | | | | | PDT | | | | +-------+ + +---+---+ | Given | | 1,500 mg | | | | | 9 14:27 | | | | | | PDT | | | | +-------+ + +---+---+ +---+---+ | | | +---+---+ + +-------+ +-------+---+---+ | metoclopramide (REGLAN) tablet | Given | | 10 mg | | | | 10 mg 10 mg, Oral, EVERY 4 HOURS | | 9 3:40 | | | | | PRN, Nausea, Vomiting, Starting | | PDT | | | | | 01/26/19 at 1805, Use if | | | | | | | ondansetron and prochlorperazine | | | | | | | ineffective after 30 minutes or | | | | | | | not ordered | | | | | | + +-------+ +-------+---+---+ +---+---+ | | | +---+---+ + +-------+ +------+---+---+ | morphine injection 1-4 mg 1-4 | Given | | 1 mg | | | | mg, Intravenous, EVERY 4 HOURS | | 9 8:23 | | | | | PRN, Pain, Starting 01/26/19 | | PDT | | | | | at 1805, If oral route not an | | | | | | | option. Slow IV push, not faster | | | | | | | than 2mg/minute. First dose must | | | | | | | be lowest dose, titrate to | | | | | | | effective dose by repeat of | | | | | | | lowest dose every 30 minutes prn | | | | | | | pain, may not exceed maximum dose | | | | | | | ordered per interval. Use | | | | | | | Pasero Sedation Scale. | | | | | | + +-------+ +------+---+---+ + +---+ | | | + +---+ | naloxone (NARCAN) 0.4 mg/mL | | | injection 0.4 mg 0.4 mg, | | | Intravenous, PRN, Apnea, | | | Decreased Responsiveness, | | | Starting 01/27/19 at 1246 | | + +---+ | | | + +---+ + +-------+ +------+---+---+ | ondansetron (ZOFRAN ODT) | Given | | 4 mg | | | | disintegrating tablet 4 mg 4 mg, | | 9 2:46 | | | | | Oral, EVERY 6 HOURS PRN, Nausea, | | PDT | | | | | Vomiting, Starting 01/26/19 | | | | | | | at 1805, First line agent | | | | | | + +-------+ +------+---+---+ +-------+ +------+---+---+ | Given | | 4 mg | | | | | 9 20:15 | | | | | | PDT | | | | +-------+ +------+---+---+ +---+---+ | | | +---+---+ + +-------+ +------+---+---+ | ondansetron (ZOFRAN) injection | Given | | 4 mg | | | | 4 mg 4 mg, Intravenous, ONCE | | 9 16:39 | | | | | PRN, Nausea, Starting 01/26/19 | | PDT | | | | | at 1633, For 1 dose, | | | | | | | Recovery/Phase I | | | | | | + +-------+ +------+---+---+ +---+---+ | | | +---+---+ + +-------+ +------+---+---+ | oxyCODONE (ROXICODONE) tablet | Given | | 5 mg | | | | 5-20 mg 5-20 mg, Oral, EVERY 4 | | 9 16:03 | | | | | HOURS PRN, Pain, Starting Mon | | PDT | | | | | 01/26/19 at 1805, Post-op/Phase II | | | | | | + +-------+ +------+---+---+ +-------+ +------+---+---+ | Given | | 5 mg | | | | | 9 1:10 | | | | | | PDT | | | | +-------+ +------+---+---+ | Given | | 5 mg | | | | | 9 10:08 | | | | | | PDT | | | | +-------+ +------+---+---+ +---+---+ | | | +---+---+ + +-------+ +------+---+---+ | polyethylene glycol (MIRALAX) | Given | | 17 g | | | | powder 17 g 17 g, Oral, DAILY, | | 9 8:10 | | | | | First dose on 01/26/19 at | | PDT | | | | | 1830, If docusate and senna | | | | | | | ineffective or not ordered | | | | | | + +-------+ +------+---+---+ +-------+ +------+---+---+ | Given | | 17 g | | | | | 9 10:28 | | | | | | PDT | | | | +-------+ +------+---+---+ | Given | | 17 g | | | | | 9 8:23 | | | | | | PDT | | | | +-------+ +------+---+---+ +---+---+ | | | +---+---+ + +-------+ +------+---+---+ | prochlorperazine tablet 5 mg 5 | Given | | 5 mg | | | | mg, Oral, EVERY 6 HOURS PRN, | | 9 6:46 | | | | | Nausea, Vomiting, Starting Mon | | PDT | | | | | 01/26/19 at 1805, Use if | | | | | | | ondansetron ineffective after 30 | | | | | | | minutes or not ordered | | | | | | + +-------+ +------+---+---+ +---+---+ | | | +---+---+ + +-------+ +--------+---+---+ | senna (SENOKOT) tablet 8.6 mg | Given | | 8.6 mg | | | | 8.6 mg, Oral, 2 TIMES DAILY PRN, | | 9 20:50 | | | | | Constipation, Starting Mon | | PDT | | | | | 01/26/19 at 1805, If docusate | | | | | | | ineffective or not ordered | | | | | | + +-------+ +--------+---+---+ +---+---+ | | | +---+---+ + +---------+ +---+-------+---+ | sodium chloride 0.9% (NS) | New Bag | | | 100 | | | infusion at 100 mL/hr, | | 9 18:38 | | mL/hr | | | Intravenous, CONTINUOUS, Starting | | PDT | | | | | 01/26/19 at 1830, | | | | | | | Post-op/Phase II | | | | | | + +---------+ +---+-------+---+ +---------+ +---+-------+---+ | New Bag | | | 100 | | | | 9 6:46 | | mL/hr | | | | PDT | | | | +---------+ +---+-------+---+ +---+---+ | | | +---+---+ in this encounter
--- OUTSIDE RECORDS SUMMARY | ~2019-02-06 | XMS | Encounter Summary ---
Demographics + + + | Address | [address] | | | [place] [address] | + + + | Home Phone | | + + + | Preferred Language | Unknown | + + + | Marital Status | | + + + | Restorationism Affiliation | 1077 | + + + | Race | Unknown | + + + | Ethnic Group | Unknown | + + + Author + + + | Author | [facility] | | | and [place] | + + + | Organization | [facility] | | | and [place] [...] Team Providers + +------+ + | Care Cryogenics Repairer Name | Role | Phone | + +------+ + | Vi Johnson | PCP | | | PA | | | + +------+ + Encounter Details +--------+ + + + + | Date | Type | Department | Care Team | Description | +--------+ + + + + | 01/12/ | Ancillary | [facility] | Provider, | | | 2019 | Orders | [facility] | MD [address] | | | | | IMAGING | Radha [address] | | | | | [phone] | [place] [address] | | +--------+ + + + + [...] | | | | | | [address] | | | | | | [place] | | | | | | [address] | | | | | | | | +--------+---------+ + + + | 04/22/ | Office | Neurosurgery | Crow Bates MD | | | 2018 | Visit | | [address] [place] | | | | | | [address] [place] | | | | | | [phone] | | | | | | | | +--------+---------+ + + + as of this encounter Results MRI Lumbar Spine wo [...]
--- OUTSIDE RECORDS SUMMARY | ~2019-02-06 | XMS | Encounter Summary ---
Demographics + + + | Address | [address] | | | [place] [address] | + + + | Home Phone | | + + + | Preferred Language | Unknown | + + + | Marital Status | | + + + | Lutheran Affiliation | 1077 | + + + | Race | Unknown | + + + | Ethnic Group | Unknown | + + + Author + + + | Author | [facility] | | | and [place] | + + + | Organization | [facility] | | | and [place] [...] Team Providers + +------+ + | Care Acid Tank Liner Name | Role | Phone | + +------+ + | Vi Johnson | PCP | | | PA | | | + +------+ + Encounter Details +--------+ + + + + | Date | Type | Department | Care Team | Description | +--------+ + + + + | 01/09/ | Orders Only | [facility] [place] | Crow Bates MD | Cervical myelopathy | | 2019 | | NEUROSURGERY [address] | [address] [place] | ([facility]) (Primary Dx); | | | | [address] | [address] [place], [place] | Lumbar | | | | [place], [place] | [address] | radiculopathy; | | | | [address] | | Bilateral lumbar | | | | [phone] | | radiculopathy; S/P | | | | | | cervical spinal | | | | | | fusion; | | | | | | Osteoporosis, | | | | | | unspecified | | | | | | osteoporosis type, | | | | | | unspecified | | | | | | pathological | | | | | | fracture presence; | | | | | | Subclinical | | | | | | hypothyroidism; | | | | | | Lumbar spondylosis; | | | | | | Dyslipidemia; Benign | | | | | | hypertension; | | | | | | Cervical spinal | | | | | | stenosis; Foraminal | | | | | | stenosis of cervical | | | | | | region; Neurogenic | | | | | | claudication; | | | | | | Hyperreflexia | +--------+ + + + + Social [...] [address] | | | | | | [address] | | | | | | [place] | | | | | | [address] | | | | | | | | +--------+---------+ + + + | 04/22/ | Office | Neurosurgery | Crow Bates MD | | | 2018 | Visit | | [address] [place] | | | | | | [address] [place] | | | | | | [address] | | | | | | | | +--------+---------+ + + + + +--------+ + + | Name | Priori | Associated Diagnoses | Order Schedule | | | ty | | | + +--------+ + + | CBC with Differential | Routin | Cervical | 1 Occurrences | | | e | myelopathy (HCC) | starting 01/09/2019 | | | | Lumbar radiculopathy | until 01/09/2020 | | | | Bilateral lumbar | | | | | radiculopathy S/P | | | | | cervical spinal | | | | | fusion | | | | | Osteoporosis, | | | | | unspecified | | | | | osteoporosis type, | | | | | unspecified | | | | | pathological | | | | | fracture presence | | | | | Subclinical | | | | | hypothyroidism | | | | | Lumbar spondylosis | | | | | Dyslipidemia Benign | | | | | hypertension | | | | | Cervical spinal | | | | | stenosis Foraminal | | | | | stenosis of cervical | | | | | region Neurogenic | | | | | claudication | | | | | Hyperreflexia | | | | | Osteoarthritis of | | | | | lumbar spine, | | | | | unspecified spinal | | | | | osteoarthritis | | | | | complication status | | | | | Lumbar facet | | | | | arthropathy Lumbar | | | | | foraminal stenosis | | | | | DDD (degenerative | | | | | disc disease), | | | | | lumbar Age-related | | | | | osteoporosis without | | | | | current | | | | | pathological | | | | | fracture - DEXA | | | | | 05/2017 shows | | | | | T-Score: L1-4 -1.0, | | | | | Femur -2.2 | | | | | Scoliosis of lumbar | | | | | spine, unspecified | | | | | scoliosis type | | | | | Spinal stenosis of | | | | | lumbar region, | | | | | unspecified whether | | | | | neurogenic | | | | | claudication present | | + +--------+ + + | Basic Metabolic Panel | Routin | Cervical | 1 Occurrences | | | e | myelopathy (HCC) | starting 01/09/2019 | | | | Lumbar radiculopathy | until 01/10/2020 | | | | Bilateral lumbar | | | | | radiculopathy S/P | | | | | cervical spinal | | | | | fusion | | | | | Osteoporosis, | | | | | unspecified | | | | | osteoporosis type, | | | | | unspecified | | | | | pathological | | | | | fracture presence | | | | | Subclinical | | | | | hypothyroidism | | | | | Lumbar spondylosis | | | | | Dyslipidemia Benign | | | | | hypertension | | | | | Cervical spinal | | | | | stenosis Foraminal | | | | | stenosis of cervical | | | | | region Neurogenic | | | | | claudication | | | | | Hyperreflexia | | | | | Osteoarthritis of | | | | | lumbar spine, | | | | | unspecified spinal | | | | | osteoarthritis | | | | | complication status | | | | | Lumbar facet | | | | | arthropathy Lumbar | | | | | foraminal stenosis | | | | | DDD (degenerative | | | | | disc disease), | | | | | lumbar Age-related | | | | | osteoporosis without | | | | | current | | | | | pathological | | | | | fracture - DEXA | | | | | 05/2017 shows | | | | | T-Score: L1-4 -1.0, | | | | | Femur -2.2 | | | | | Scoliosis of lumbar | | | | | spine, unspecified | | | | | scoliosis type | | | | | Spinal stenosis of | | | | | lumbar region, | | | | | unspecified whether | | | | | neurogenic | | | | | claudication present | | + +--------+ + + | ECG 12 lead | Routin | Cervical | 1 Occurrences | | | e | myelopathy (HCC) | starting 01/09/2019 | | | | Lumbar radiculopathy | until 01/10/2020 | | | | Bilateral lumbar | | | | | radiculopathy S/P | | | | | cervical spinal | | | | | fusion | | | | | Osteoporosis, | | | | | unspecified | | | | | osteoporosis type, | | | | | unspecified | | | | | pathological | | | | | fracture presence | | | | | Subclinical | | | | | hypothyroidism | | | | | Lumbar spondylosis | | | | | Dyslipidemia Benign | | | | | hypertension | | | | | Cervical spinal | | | | | stenosis Foraminal | | | | | stenosis of cervical | | | | | region Neurogenic | | | | | claudication | | | | | Hyperreflexia | | | | | Osteoarthritis of | | | | | lumbar spine, | | | | | unspecified spinal | | | | | osteoarthritis | | | | | complication status | | | | | Lumbar facet | | | | | arthropathy Lumbar | | | | | foraminal stenosis | | | | | DDD (degenerative | | | | | disc disease), | | | | | lumbar Age-related | | | | | osteoporosis without | | | | | current | | | | | pathological | | | | | fracture - DEXA | | | | | 05/2017 shows | | | | | T-Score: L1-4 -1.0, | | | | | Femur -2.2 | | | | | Scoliosis of lumbar | | | | | spine, unspecified | | | | | scoliosis type | | | | | Spinal stenosis of | | | | | lumbar region, | | | | | unspecified whether | | | | | neurogenic | | | | | claudication present | | + +--------+ + + as of this encounter Results XR Chest PA and Lateral (01/26/2019 0940) + + + | Narrative | Performed At | + + + | EXAM: XR CHEST PA AND LATERAL dated 01/26/2019 9:40 AM HISTORY: | [facility] | | PRE OPERATIVE EXAM Comparison: Outside study dated 01/21/2019. | | | TECHNIQUE: Frontal and lateral views of the chest. FINDINGS: The | | | lungs are symmetrically aerated. Stable scarring in the | | | lingula. There are no pleural effusions. There is no | | | pneumothorax. The cardiac and mediastinal contours are not | | | enlarged. Fusion related changes in the lower cervical spine. | | | Partially visualized scoliosis in the lumbar spine. IMPRESSION | | | - Negative two-view chest radiograph. Dictated and Signed | | | by: Derik Louis MD Electronically signed: 01/26/2019 10:02 AM | | | | | + + + + + | Procedure Note | + + | Rudy, Rad Results In - 01/26/2019 1005 PDT EXAM: XR CHEST PA AND LATERAL dated | | 01/26/2019 9:40 AMHISTORY: PRE OPERATIVE EXAMComparison: Outside study dated | | 01/21/2019.TECHNIQUE: Frontal and lateral views of the chest.FINDINGS:The lungs are | | symmetrically aerated. Stable scarring in the lingula. There areno pleural effusions. | | There is no pneumothorax. The cardiac and mediastinalcontours are not enlarged. | | Fusion related changes in the lower cervical spine. Partially visualized scoliosis in | | the lumbar spine. IMPRESSION -Negative two-view chest radiograph. Dictated and Signed | | by: Derik Louis MD Electronically signed: 01/26/2019 10:02 AM | |FINDINGS: | |The lungs are symmetrically aerated. Stable scarring in the lingula. There are | |no pleural effusions. There is no pneumothorax. The cardiac and mediastinal | |contours are not enlarged. Fusion related changes in the lower cervical spine. | |Partially visualized scoliosis in the lumbar spine. | | | |IMPRESSION - | | | |Negative two-view chest radiograph. | | | |Dictated and Signed by: Derik Louis MD | | Electronically signed: 01/26/2019 10:02 AM | + + + +---------+ + + | Performing | Address | City/State/Zipcode | Phone Number | | Organization | | | | + +---------+ + + | [facility] | | | | + +---------+ + + in this encounter Visit Diagnoses + + | Diagnosis | + + | Cervical myelopathy (HCC) - Primary | + + | Cervical spondylosis with myelopathy | + + | Lumbar radiculopathy | + + | Thoracic or lumbosacral neuritis or radiculitis, unspecified | + + | Bilateral lumbar radiculopathy | + + | S/P cervical spinal fusion | + + | Arthrodesis status | + + | Osteoporosis, unspecified osteoporosis type, unspecified pathological fracture | | presence | + + | Subclinical hypothyroidism | + + | Other specified acquired hypothyroidism | + + | Osteoarthritis of lumbar spine, unspecified spinal osteoarthritis complication status | + + | Dyslipidemia | + + | Other and unspecified hyperlipidemia | + + | Benign hypertension | + + | Essential hypertension, benign | + + | Cervical spinal stenosis | + + | Spinal stenosis in cervical region | + + | Foraminal stenosis of cervical region | + + | Spinal stenosis in cervical region | + + | Neurogenic claudication | + + | Spinal stenosis, lumbar region, with neurogenic claudication | + + | Hyperreflexia | + + | Abnormal reflex | + + | Lumbar facet arthropathy | + + | Lumbosacral spondylosis without myelopathy | + + | Lumbar foraminal stenosis | + + | Spinal stenosis, lumbar region, without neurogenic claudication | + + | DDD (degenerative disc disease), lumbar | + + | Degeneration of lumbar or lumbosacral intervertebral disc | + + | Age-related osteoporosis without current pathological fracture - DEXA 05/2017 shows | | T-Score: L1-4 -1.0, Femur -2.2 | + + | Senile osteoporosis | + + | Scoliosis of lumbar spine, unspecified scoliosis type | + + | Spinal stenosis of lumbar region, unspecified whether neurogenic claudication present | + +"
--- OUTSIDE RECORDS SUMMARY | ~2019-02-06 | XMS | Encounter Summary ---
Demographics + + + | Address | [address] | | | [place] [address] | + + + | Home Phone | | + + + | Preferred Language | Unknown | + + + | Marital Status | | + + + | Pentecostal Affiliation | 1077 | + + + | Race | Unknown | + + + | Ethnic Group | Unknown | + + + Author + + + | Author | [facility] | | | and [place] | + + + | Organization | [facility] | | | and [place] [...] Team Providers + +------+ + | Care Rehanger Name | Role | Phone | + +------+ + | Vi Johnson | PCP | | | PA | | | + +------+ + Reason for Visit +---------+ + | Reason | Comments | +---------+ + | Post Op | PO Call | +---------+ + Encounter Details +--------+ + + + + | Date | Type | Department | Care Team | Description | +--------+ + + + + | 02/03/ | Telephone | [facility] [place] | Crow Bates MD | Post Op (PO Call) | | 2019 | | NEUROSURGERY [address] | [address] | | | | | [address] | [address] [place], [place] | | | | | [place], [place] | [address] | | | | | [address] | | | | | | [phone] | | | +--------+ + + + [...] [place] | | | | | | [address] | | | | | | | | +--------+---------+ + + + | 04/22/ | Office | Neurosurgery | Crow Bates MD | | | 2018 | Visit | | [address] [place] | | | | | | [address] [place] | | | | | | [address] | | | | | | | | +--------+---------+ + + + as of this encounter Visit Diagnoses Not on filein this encounter"
--- OUTSIDE RECORDS SUMMARY | ~2019-02-06 | XMS | Encounter Summary ---
Demographics + + + | Address | [address] | | | [place] [address] | + + + | Home Phone | | + + + | Preferred Language | Unknown | + + + | Marital Status | | + + + | Faith Affiliation | 1077 | + + + | Race | Unknown | + + + | Ethnic Group | Unknown | + + + Author + + + | Author | [facility] | | | and [place] | + + + | Organization | [facility] | | | and [place] | [...] Team Providers + +------+ + | Care Soaking Room Operator Name | Role | Phone | [...] | | | | unspecified | | [address] Phone: | | | | | scoliosis | | [phone] | | | | | type, | | Fax: | | | | | unspecified | | [phone] | | | | | spinal | [...] | | | | | | | MS SPINAL | | | | | | | FUSION,ANT,E | | | | | | | A ADNL LEVEL | | | | | | | MS SPINE | | | | | | | FUSN,POST | | | | | | | TECH,EA | | | | | | | ADDNL SGMT | | | | | | | MS ARTHDSIS | | | | | | [...] | | | | | | SEG MS INSJ | | | | | | | BIOMCHN DEV | | | | | | | | | | | | | | INTERVERTEBR | | | | | | | AL DSC SPC | | | | | | | W/ARTHRD MS | | | | | | | [...] | | | | | | SEG MS | | | | | | | LAMINEC/FACE | | | | | | | TECT/FORAMIN | | | | | | | ,EACH ADDNL | | | +--------+--------+ + + + + Encounter Details +--------+ + + + + | Date | Type | Department | Care Team | Description | +--------+ + + + + | 01/26/ | Hospital | [facility] | Crow Bates MD | | | 2019 | Encounter | MED CTR XRAY [address] | [address] [facility] | | | | | [place] | [address] [place] [address] | | | | | [place] [address] | [address] | | | | | [phone] | | | +--------+ + + + [...] + + + as of this encounter Medications at Time of Discharge [...] + + + +---------+ + + | Salix-3 Fatty | Take 1,000 mg by | [...] + + + +---------+ + + | zolpidem (AMBIEN) | Take 5 mg by mouth | | | | | | 5 mg tablet | nightly as needed | | | | 9 | | | for Sleep. | | | | | + + + +---------+ + + as of this encounter Plan [...] [place] | | | | | | [address] | | | | | | | | +--------+---------+ + + + | 04/22/ | Office | Neurosurgery | Crow Bates MD | | | 2018 | Visit | | [address] [place] | | | | | | [address] [place] | | | | | | [address] | | | | | | | | +--------+---------+ + + + as of this encounter Procedures + +--------+ + + + | Procedure Name | Priori | Date/Time | Associated Diagnosis | Comments | | | ty | | | | + +--------+ + + + | FL JORGE STATS NO | Routin | 01/26/2019 | | Results for this | | CHARGE | e | 1614 PDT | | procedure are in the | | | | | | results section. 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
--- OUTSIDE RECORDS SUMMARY | ~2019-02-06 | XMS | Encounter Summary ---
Demographics + + + | Address | [address] | | | [place] [address] | + + + | Home Phone | | + + + | Preferred Language | Unknown | + + + | Marital Status | | + + + | Methodist Affiliation | 1077 | + + + | Race | Unknown | + + + | Ethnic Group | Unknown | + + + Author + + + | Author | [facility] | | | and [place] | + + + | Organization | [facility] | | | and [...] Team Providers + +------+ + | Care Marine Services Technician Name | Role | Phone | + +------+ + | Vi Johnson | PCP | | | PA | | | + +------+ + Encounter Details +--------+ + + + + | Date | Type | Department | Care Team | Description | +--------+ + + + + | 01/09/ | [facility] | [facility] | Freddy Og, | S/P cervical spinal | | 2019 | Encounter | MED CTR XRAY [address] | PA-C [address] | fusion; Cervical | | | | [place] | [address] [place] [address] [place] | myelopathy (HCC) | | | | [place] [address] | [place] [address] | | | | | [phone] | [phone] | | | | | | | | +--------+ + + + [...] Medications at Time of Discharge + + +--------+---------+ + + | Medication | Sig. | Disp. | Refills | Start | End Date | | | | | | Date | | + + +--------+---------+ + + | amLODIPine | Take 5 mg by mouth | | | | | | (NORVASC) 5 mg | Daily. | | | | | | tablet | | | | | | + + +--------+---------+ + + | ascorbic acid | Take 500 mg by mouth | | | | | | (VITAMIN C) 500 mg | Daily. | | | | | | tablet | | | | | | + + +--------+---------+ + + | aspirin 81 MG | Take 81 mg by mouth | | | | | | tablet | Daily. | | | | | + + +--------+---------+ + + | benazepril | Take 10 mg by mouth | | | | | | (LOTENSIN) 10 mg | Daily. | | | | | | tablet | | | | | | + + +--------+---------+ + + | benzonatate | Take 200 mg by mouth | | 0 | 07/22/20 | | | (TESSALON) 200 MG | 3 times daily as | | | 18 | | | capsule | needed. | | | | | + + +--------+---------+ + + | betamethasone | Apply topically 2 | | | | | | valerate (VALISONE) | times daily. | | | | | | 0.1 % cream | | | | | | + + +--------+---------+ + + | cetirizine | Take 10 mg by mouth | | 0 | 08/27/20 | | | (ZYRTEC) 10 mg | Daily. | | | 17 | | | tablet | | | | | | + + +--------+---------+ + + | ergocalciferol | Take 50,000 Units by | | 0 | 08/06/20 | | | (VITAMIN D-2) 50,000 | mouth Once a week. | | | 18 | | | units capsule | | | | | | + + +--------+---------+ + + | famotidine | Take 1 [...] | | | | | + + +--------+---------+ + + | levothyroxine | Take 75 mcg by mouth | | | | | | (SYNTHROID, | every morning | | | | | | LEVOTHROID) 75 MCG | (before breakfast). | | | | | | tablet | | | | | | + + +--------+---------+ + + | meloxicam (MOBIC) | Take 15 mg by mouth | | 0 | 07/29/20 | | | 15 mg tablet | Daily. | | | 18 | | + + +--------+---------+ + + | Multiple Vitamin | Take by mouth. | | | | | | (THERAGRAN PO) | | | | | | + + +--------+---------+ + + | [place]-3 Fatty | Take 1,000 mg by | | | | | | Acids (FISH OIL) | mouth 3 times daily. | | | | | | 1360 MG CAPS | | | | | | + + +--------+---------+ + + | polyethylene | Place 1 drop into | | | | | | glycol-propylene | both eyes EVERY 4 TO | | | | | | glycol (SYSTANE) | 6 HOURS NEEDED | | | | | | 0.4-0.3% ophthalmic | for Dry Eyes. | | | | | | solution | | | | | | + + +--------+---------+ + + | simvastatin | Take 40 mg by mouth | | | 03/07/20 | | | (ZOCOR) 40 mg tablet | Daily. | | | 10 | | + + +--------+---------+ + + | cyclobenzaprine | Take 1 tablet by | 90 | 3 | 12/24/19 | | | (FLEXERIL) 10 mg | mouth every 8 hours | tablet | | 18 | 9 | | tablet | as needed for Muscle | | | | | | | spasms. | | | | | + + +--------+---------+ + + | zolpidem (AMBIEN) | Take 5 mg by mouth | | | | | | 5 mg tablet | nightly as needed | | | | 9 | | | for Sleep. | | | | | + + +--------+---------+ + + as of this encounter Plan [...] [place] | | | | | | [address] | | | | | | | | +--------+---------+ + + + | 04/22/ | Office | Neurosurgery | Crow Bates MD | | | 2018 | Visit | | [address] [place] | | | | | | [address] [place] | | | | | | [address] | | | | | | | | +--------+---------+ + + + as of this encounter Procedures + +--------+ + + + | Procedure Name | Priori | Date/Time | Associated Diagnosis | Comments | | | ty | | | | + +--------+ + + + | XR CERVICAL SPINE 2 | Routin | 01/09/2019 | S/P cervical | Results for this | | OR 3 VIEWS | e | 0810 PST | spinal fusion | procedure are in the | | | | | Cervical myelopathy | results section. | | | | | (HCC) | | + +--------+ + + + in this encounter Results XR Cervical Spine 2 or 3 Views (01/09/2019 0810) + + + | Narrative | Performed At | + + + | XR CERVICAL SPINE 2 OR 3 VIEWS 01/09/2019 8:10 AM HISTORY: s/p | [facility] | | cervical fusion. COMPARISON: Multiple priors. FINDINGS: | | | Visualized skull base and facial structures demonstrate no acute | | | findings. Prevertebral soft tissues are normal. There is stable | | | hardware for anterior fusion from C4 through C6 with spacer material | | | at C4-5 and spacer hardware at C5-6. The hardware are intact. There | | | are mild degenerative changes of the anterior atlantoaxial joint. | | | Mild to moderate cervical spondylosis is present. Minimal | | | anterolistheses are noted of C2 over C3 and C3 over C4. Bone | | | mineralization is normal. The dens is normal. Vertebral body height | | | are preserved with no evidence for compression fractures. Mild disc | | | narrowing are at C3-4 and C6-7. Facet sclerosis are present at | | | multiple levels, left more than right. Soft tissues are unremarkable. | | | Visualized upper chest demonstrates no acute findings. | | | IMPRESSION - Stable anterior fusion from C4 through C6. Dictated | | | and Signed by: Everett Hemphill MD Electronically signed: 01/09/2019 | | | 10:39 AM | | + + + + + | Procedure Note | + + | Rudy, Rad Results In - 01/09/2019 1042 PST XR CERVICAL SPINE 2 OR 3 VIEWS 01/09/2019 | | 8:10 AMHISTORY: s/p cervical fusion.COMPARISON: Multiple priors.FINDINGS:Visualized | | skull base and facial structures demonstrate no acute findings.Prevertebral soft tissues | | are normal.There is stable hardware for anterior fusion from C4 through C6 with | | spacermaterial at C4-5 and spacer hardware at C5-6. The hardware are intact. There | | aremild degenerative changes of the anterior atlantoaxial joint. Mild to | | moderatecervical spondylosis is present. Minimal anterolistheses are noted of C2 over | | C3and C3 over C4. Bone mineralization is normal. The dens is normal. Vertebralbody | | height are preserved with no evidence for compression fractures. Mild discnarrowing are | | at C3-4 and C6-7. Facet sclerosis are present at multiple levels,left more than right. | | Soft tissues are unremarkable. Visualized upper chestdemonstrates no acute findings. | | IMPRESSION -Stable anterior fusion from C4 through C6.Dictated and Signed by: Everett | | MD Joby Electronically signed: 01/09/2019 10:39 AM | |cervical spondylosis is present. Minimal anterolistheses are noted of C2 over C3 | |and C3 over C4. Bone mineralization is normal. The dens is normal. Vertebral | |body height are preserved with no evidence for compression fractures. Mild disc | |narrowing are at C3-4 and C6-7. Facet sclerosis are present at multiple levels, | |left more than right. Soft tissues are unremarkable. Visualized upper chest | |demonstrates no acute findings. | | | |IMPRESSION - | |Stable anterior fusion from C4 through C6. | | | |Dictated and Signed by: Everett Hemphill MD | | Electronically signed: 01/09/2019 10:39 AM | + + + +---------+ + + | Performing | Address | City/State/Zipcode | Phone Number | | Organization | | | | + +---------+ + + | [facility] | | | | + +---------+ + + in this encounter Visit Diagnoses + + | Diagnosis | + + | S/P cervical spinal fusion | + + | Arthrodesis status | + + | Cervical myelopathy (HCC) | + + | Cervical spondylosis with myelopathy | + +"
--- OUTSIDE RECORDS SUMMARY | ~2019-02-06 | XMS | Encounter Summary ---
Demographics + + + | Address | [address] | | | [place] [address] | + + + | Home Phone | | + + + | Preferred Language | Unknown | + + + | Marital Status | | + + + | Jew Affiliation | 1077 | + + + | Race | Unknown | + + + | Ethnic Group | Unknown | + + + Author + + + | Author | [facility] | | | and [place] | + + + | Organization | [facility] | | | and [...] Team Providers + +------+ + | Care Spray Dry Operator Name | Role | Phone | + +------+ + | Vi Johnson | PCP | | | PA | | | + +------+ + Reason for Visit +--------+ + | Reason | Comments | +--------+ + | LABS | | +--------+ + Encounter Details +--------+ + + + + | Date | Type | Department | Care Team | Description | +--------+ + + + + | 01/20/ | Telephone | [facility] | Crow Bates MD | LABS | | 2019 | | NEUROSURGERY [address] | [address] [place] | | | | | [address] | [address] [place], [place] | | | | | [place], [place] | [address] | | | | | [address] | | | | | | [phone] | | | +--------+ + + + [...] [place] | | | | | | [address] | | | | | | | | +--------+---------+ + + + | 04/22/ | Office | Neurosurgery | Crow Bates MD | | | 2019 | Visit | | [address] [place] | | | | | | [address] [place] | | | | | | [address] | | | | | | | | +--------+---------+ + + + as of this encounter Visit Diagnoses Not on filein this encounter"
--- OUTSIDE RECORDS SUMMARY | ~2019-02-06 | XMS | Encounter Summary ---
Demographics + + + | Address | [address] | | | [place] [address] | + + + | Home Phone | | + + + | Preferred Language | Unknown | + + + | Marital Status | | + + + | Holiness Affiliation | 1077 | + + + | Race | Unknown | + + + | Ethnic Group | Unknown | + + + Author + + + | Author | [facility] | | | and [place] | + + + | Organization | [facility] | | | and [place] | [...] Team Providers + +------+ + | Care Rackman Name | Role | Phone | + [...] | | | | unspecified | | [address] Phone: | | | | | scoliosis | | [phone] | | | | | type, | | Fax: | | | | | unspecified | | [phone] | | | | | spinal | [...] | | | | | | | ND SPINAL | | | | | | | FUSION,ANT,E | | | | | | | A ADNL LEVEL | | | | | | | ND SPINE | | | | | | | FUSN,POST | | | | | | | TECH,EA | | | | | | | ADDNL SGMT | | | | | | | ND ARTHDSIS | | | | | | [...] | | | | | | SEG ND INSJ | | | | | | | BIOMCHN DEV | | | | | | | | | | | | | | INTERVERTEBR | | | | | | | AL DSC SPC | | | | | | | W/ARTHRD ND | | | | | | | [...] | | | | | | SEG ND | | | | | | | LAMINEC/FACE | | | | | | | TECT/FORAMIN | | | | | | | ,EACH ADDNL | | | +--------+--------+ + + + + Encounter Details +--------+---------+ + + + | Date | Type | Department | Care Team | Description | +--------+---------+ + + + | 01/26/ | Surgery | [facility] | Crow Bates MD | L2-3, L3-4 and L4-5 | | 2019 | | MED CTR OR INTRA OP | [address] [place] | Lateral Anterior | | | | [address] | [address] [place] | Interbody Fusion | | | | [place] | [address] | with L5-S1 | | | | [address] | | Tranforaminal Lumbar | | | | [phone] | | Interbody Fusion | +--------+---------+ + + + Social History + + [...] | Respiratory Rate | 16 | 01/30/2019 09 PDT | + + + + | [...] Discontinued Medications zolpidem 5 mg tablet aka: AMBIEN Condition on Discharge: Stable Follow-Up Plans: Follow-up: 3-4 weeks for routine follow-up. Follow-up with primary care physician as needed. Diet: Resume home diet Activity: Continue to follow guidelines and precautions as previously discussed. Bracing: C Brace Electronically signed by: Freddy Og, 01/30/2019 10:[address] [facility] in this encounter Discharge Instructions Freddy Og [...] to your 1 month post op appointment. [id number] [employer]. [address] [place] [id number]. All righ ts reserved. This information is [...] + + + +---------+ + + | [place]-3 Fatty | Take 1,000 mg by | [...] may be different from t he original. [facility] Daily Progress Note Date: 01/30/2019 [...] Rosa PA-C, 5 mg a t 01/30/19 08 atorvaSTATin (LIPITOR) tablet 20 mg, 20 mg, Oral, Nightly, Jose Rosa PA-C, 20 mg at 01/29/192014 benzonatate (TESSALON) capsule 200 mg, 200 mg, Oral, TID PRN, MILAD Delgado, 200 mg at 01/28/19 08 bisacodyl (DULCOLAX) suppository 10 mg, 10 mg, [...] 8.6 mg, Oral, BID PRN, Jose Rosa KATHERIN, 8.6 m g at 01/26/192049 sodium chloride 0.9% (NS) infusion, , Intravenous, Continuous, Jose Rosa OXANA Wyatt, Last Rate: 100 mL/hr at 01/27/19 0646 [...] L3-4, L4-5, L5-S1 7. L5 and partial Y2hearaxumaoh, L5-C9bywxvcyulwm, L5 and H9dvbirvdlznmb for decompre ssion of L5 and W3xvuayz 3. 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 Thoracolumbar kyphoscoliosis 5. Diagnoses as per PMH #Diet - Active Orders Diet Diet general; Effective Now PLAN : The patient is seen and evaluated on rounds. Laboratory data reviewed Meds reviewed. I reviewed status with patient's nurse and addressed questions and issues. I discussed and reviewed status with patient's therapist and addressed questions and issues . I met with the CLAIR PA and case packer and reviewed the overall plan of care. We discussed patient's current status. She is doing well and is ready for [facility] health. Signed: MD Earle Gutierrez Derek E, PA-C - 01/30/2019 1004 PDTFormatting of this note may be different from the original. [facility] NEUROSURGERY PROGRESS NOTE PATIENT NAME: Lulu Granados [...] PRN Jose calero PA-C 4 mg at 01/29/192014 ondansetron (ZOFRAN) injection 4 mg 4 mg [...] has no apparent deficits with short or retirement memory. MOTOR EXAM: Motor strength is L dorsi 4+/5 and L quad 4. L hip flex 4+/5 SENSORY EXAM: Sensory exam is stable 24 HOUR LABS: All Component Based Labs 01/27/19 0601/26/19 1104 Anion Gap 9 BUN 13 BUN/Creatinine [...] ELECTRONICALLY SIGNED BY: Freddy Og PA-C, 01/30/2019 10:04SuchaFreddy pichardo PA- C - 01/29/2019 1011 PDTFormatting of this note may be different from the original. [facility] NEUROS[facility]GERY PROGRESS NOTE PATIENT NAME: Lulu Granados [...] Jose Rosa PA-C 8.6 mg a t 01/26/19 205 sodium chloride 0.9% (NS) infusion Intravenous Continuous [...] has no apparent deficits with short or watermaster memory. MOTOR EXAM: Motor strength is L [...] inpatient rehab. I hernández ve spoken with Albian this AM and we are going to rely heavily on her evaluation in regards t o a final recommendation or sending her home. Patient has verbalized her desire to go home b ut is willing to concede to our professional recommendation. DC home this afternoon or admit to rehab. ELECTRONICALLY SIGNED BY: Freddy Og PA-C, 01/29/2019 10:11SuchaFreddy pichardo PA- C - 01/28/2019 0905 PDTFormatting of this note may be different from the original. [facility] NEUROS[facility]GERY PROGRESS NOTE PATIENT NAME: Lulu Granados [...] 75 mcg 75 mcg Oral QAM AC Joes Rosa PA-C 75 mcg at 01/28/19 0612 [...] has no apparent deficits with short or watermaster memory. MOTOR EXAM: Motor strength is L [...] ble that patient may also need a prison facility. ELECTRONICALLY SIGNED BY: Freddy Og PA-C, 01/28/2019 9:05Hill, Walter Sheridan MD - 01/27/2019 9238 PDTWe are evaluating the patient regarding her potential to benefit and to lerate full inpatient rehab. I am checking with our rehab therapist to see if our program is her best option .Freddy Og PA-C - 01/27/2019 2951 PDTFormatting of this note may be different from the origina l. [facility] NEUROS[facility]GERY PROGRESS NOTE PATIENT NAME: Lulu Granados [...] Jose Rosa PA-C 8.6 mg a t 01/26/19 205 sodium chloride 0.9% (NS) infusion Intravenous Continuous [...] has no apparent deficits with short or retirement memory. MOTOR EXAM: Motor strength is stable [...] ble that patient may also need a prison facility. ELECTRONICALLY SIGNED BY: Freddy Og PA-C, 01/27/2019 9:30 in this encounter Plan of Treatment +--------+---------+ + + + | Date | Type | Specialty | Care Team | Description | +--------+---------+ + + + | 02/23/ | Office | Neurosurgery | Jose Rosa | | | 2018 | Visit | | KATHERIN Torres [address] | | | | [address] | | | | | | [place] | | | | | | [address] | | | | | | | | +--------+---------+ + + + | 04/22/ | Office | Neurosurgery | Crow Bates MD | | | 2018 | Visit | | [address] [place] | | | | | | [address] [place] | | | | | | [address] | | | | | | | [...] | + +--------+ + + + | MOLLY JORGE STATNoel NO | Routin | 01/26/2019 [...] >=60 mL/min/1.73m2 | [facility] | | [place] | | | [facility] | | [...] 78 | 46 - 116 U/L | [facility] | | [facility] | | | | | C[facility] - | | | | | LABORATORY | + +---------+ + + | Globulin | 2.0 (L) | 2.1 - 3.8 g/dL | [facility] | | | | | [facility] | | | | | C[facility] - | | | | | LABORATORY | + +---------+ + + | Albumin/Globulin | 1.8 | 0.8 - 1.9 | [facility] | | Ratio | | | [facility] | | | | | CENTER - | | | | | LABORATORY | + +---------+ + + | BUN/Creatinine Ratio | 14.5 | | [facility] | | | | [...] [address] | [place] | [phone] | | [facility] | | [address] | | | - LABORATORY | | [...] + | [facility] | [address] | [place] | [phone] | | [facility] | | [address] | | | - LABORATORY | | | | + + + + + Extra Lavender Top Tube (01/27/2019622) + +-------+ + + | Component | Value | Ref Range | Performed At | + +-------+ + + | Extra Lavender Top | Done | | [facility] | | Tube | | | [facility] | | | | | CENTER - | | | | | LABORATORY | + +-------+ + + + + | Specimen | + + | Blood | + + + + + + + | Performing | Address | City/State/Zipcode | Phone Number | | Organization | | | | + + + + + | [facility] | [address] | [place] | [phone] | | [facility] | | [address] | | | - LABORATORY | | [...] not | >60 | >=60 mL/min/1.73m2 | [facility] [place] | | | [facility] | | | | | CENTER - | | | | | LABORATORY | + +---------+ + + | Ca | 9.1 | 8.7 - 10.4 mg/dL | [facility] | | | | | [facility] | | | | | CENTER - | | | | | LABORATORY | + +---------+ + + | BUN/Creatinine Ratio | 15.3 | | [facility] | | | | | [facility] | | | | [...] ST. | [address] | [place] | [phone] | | [facility] | | [address] | | | - LABORATORY | | [...] | + +---------+ + + Culture, MRSA (01/26/20191103) + + + + + | Component [...] + | [facility] | [address] | [place] | [phone] | | [facility] | | [address] | | | - LABORATORY | | [...] | + + Administered Medications + +--------+ +--------+------+------+ | Medication Order | MAR | Action | Dose | Rate | Site | | | Action | Date | | | | + +--------+ +--------+------+------+ | acetaminophen (TYLENOL) tablet | Given | | 650 mg | | | | 650 mg 650 mg, Oral, EVERY 4 | | 9 10:26 | | | | | HOURS PRN, Pain, Fever, Starting | | PDT | | | | | 01/26/19 at 1805, | | | | | | | Post-op/Phase II | | | | | | + +--------+ +--------+------+------+ +-------+ +--------+---+---+ | Given | | 650 [...] 8:08 | | | | | on Sat01/27/19 at 0900, | | PDT [...] +---+---+ | | | +---+---+ + +-------+ +---------+---+ + | bacitracin injection PRN, | Given | | 50,000 | | Surgical | | Starting Sat01/26/19 at 1337, | | 9 13:37 | Units | | Site | | Intra-op | | PDT | | | | + +-------+ +---------+---+ + +---+---+ | | | +---+---+ + +-------+ [...] +---+---+ | | | +---+---+ + +-------+ +--------+---+ + | bupivacaine (liposomal) | Given | | 20 mLs | | Surgical | | (EXPAREL) 1.3% injection PRN, | | 9 15:11 | | | Site | | Starting 01/26/19 at 1511, | | PDT | | | | | Intra-op | | | | | | + +-------+ +--------+---+ + +---+---+ | | | +---+---+ + +-------+ +--------+---+ + | bupivacaine 0.5%-EPINEPHrine | Given | | 20 mLs | | Surgical | | 1:200,000 injection PRN, | | 9 13:37 | | | Site | | Starting 01/26/19 at 1337, | | PDT | | | | | Intra-op | | | | | | + +-------+ +--------+---+ + +---+---+ | | | +---+---+ + +-------+ +-------+---+---+ | cetirizine (zyrTEC) tablet 10 | Given | | 10 mg | | | | mg 10 mg, Oral, DAILY, First | | 9 8:08 | | | | | dose on e 01/27/19 at 0900, | | PDT | [...] | Decreased Responsiveness, | | | Starting e 01/27/19 at 1246 | | + +---+ [...]
--- OUTSIDE RECORDS SUMMARY | ~2019-02-06 | XMS | Encounter Summary ---
Demographics + + + | Address | [address] | | | [place] [address] | + + + | Home Phone | | + + + | Preferred Language | Unknown | + + + | Marital Status | | + + + | Mormon Affiliation | 1077 | + + + | Race | Unknown | + + + | Ethnic Group | Unknown | + + + Author + + + | Author | [facility] | | | and [place] | + + + | Organization | [facility] | | | and [place] [...] Team Providers + +------+ + | Care Business Line Manager Name | Role | Phone | + +------+ + | Vi Johnson | PCP | | | PA | | | + +------+ + Reason for Visit + + + | Reason | Comments | + + + | Procedure | | + + + Encounter Details +--------+ + + + + | Date | Type | Department | Care Team | Description | +--------+ + + + + | 01/19/ | Telephone | [facility] [place] | Crow Bates MD | Procedure | | 2019 | | NEUROSURGERY [address] | [address] [place] | | | | | [address] | [address] [place], [place] | | | | | [place], [place] | [address] | | | | | [address] | | | | | | [phone] | | | +--------+ + + + [...] [place] | | | | | | [id number] | | | | | | | | +--------+---------+ + + + | 04/22/ | Office | Neurosurgery | Crow Bates MD | | | 2018 | Visit | | [address] [place] | | | | | | [address] [place] | | | | | | [address] | | | | | | | | +--------+---------+ + + + as of this encounter Visit Diagnoses Not on filein this encounter"
--- OUTSIDE RECORDS SUMMARY | ~2019-02-06 | XMS | Encounter Summary ---
Demographics + + + | Address | [address] | | | [place] [address] | + + + | Home Phone | | + + + | Preferred Language | Unknown | + + + | Marital Status | | + + + | Yazidi Affiliation | 1077 | + + + | Race | Unknown | + + + | Ethnic Group | Unknown | + + + Author + + + | Author | [facility] | | | and [place] | + + + | Organization | [facility] | | | and [place] | [...] Team Providers + +------+ + | Care Director Of Integrated Marketing Name | Role | Phone | + +------+ + | Vi Johnson | PCP | | | PA | | | + +------+ + Encounter Details +--------+ + + + + | Date | Type | Department | Care Team | Description | +--------+ + + + + | 01/21/ | Imaging | [facility] | Provider, | | | 2019 | Exam | MED CTR EXTERNAL | [address] | | | | | IMAGING | Radha [address]STRONG | | | | | [phone] | [place] [address] | | +--------+ + + + + [...] | | | | | | [address] [place] [address] | | | | | | [place] | | | | | | [address] | | | | | | | | +--------+---------+ + + + | 04/22/ | Office | Neurosurgery | Crow Bates MD | | | 2018 | Visit | | [address] [facility] [place] | | | | | | [address] [place] | | | | | | [address] | | | | | | | | +--------+---------+ + + + as of this encounter Procedures + +--------+ + + + | Procedure Name | Priori | Date/Time | Associated Diagnosis | Comments | | | ty | | | | + +--------+ + + + | XR CHEST 2 VIEWS | Routin | 01/21/2019 | | Results for this | | | e | 0900 PDT | | procedure are in the | | | | | | results section. | + +--------+ + + + in this encounter Results XR Chest 2 Vws (01/21/2019899) + + + | Narrative | Performed [...]
--- OUTSIDE RECORDS SUMMARY | ~2019-02-06 | XMS | Encounter Summary ---
Demographics + + + | Address | [address] | | | [place] [address] | + + + | Home Phone | | + + + | Preferred Language | Unknown | + + + | Marital Status | | + + + | Restoration Affiliation | 1077 | + + + | Race | Unknown | + + + | Ethnic Group | Unknown | + + + Author + + + | Author | [facility] | | | and [place] | + + + | Organization | [facility] | | | and [place] [...] Team Providers + +------+ + | Care Gum Scoring Machine Operator Name | Role | Phone | [...] [address] | [address] [place], [place] | | | | | [place] | [address] | | | | | [address] | | | | | | [phone] | | | +--------+ + + + [...] 50 | | | | | | [place] | | | | | | [address] | | | | | | | | +--------+---------+ + + + | 04/22/ | Office | Neurosurgery | Crow Bates MD | | | 2019 | Visit | | [address] [place] | | | | | | [address] [place] | | | | | | [address] | | | | | | | | +--------+---------+ + + + as of this encounter Visit Diagnoses Not on filein this encounter"
--- OUTSIDE RECORDS SUMMARY | ~2019-02-06 | XMS | Encounter Summary ---
Demographics + + + | Address | [address] | | | [place] [address] | + + + | Home Phone | | + + + | Preferred Language | Unknown | + + + | Marital Status | | + + + | Adventist Affiliation | 1077 | + + + | Race | Unknown | + + + | Ethnic Group | Unknown | + + + Author + + + | Author | [facility] | | | and [place] | + + + | Organization | [facility] | | | and [place] [...] Team Providers + +------+ + | Care Electronic Tester Name | Role | Phone | + +------+ + | Vi Johnson | PCP | | | PA | | | + +------+ + Encounter Details +--------+ + + + + | Date | Type | Department | Care Team | Description | +--------+ + + + + | 01/12/ | Episode | [facility] [place] | Berenice Reddy, | | | 2019 | Changes | NEUROSURGERY [address] | Cert [place] | | | | | [address] | | | | | | [place] | | | | | | [address] | | | | | | [phone] | | | +--------+ + + + [...] [place] | | | | | | [address] | | | | | | | | +--------+---------+ + + + | 04/22/ | Office | Neurosurgery | Crow Bates MD | | | 2019 | Visit | | [address] | | | | | | [address] [place] | | | | | | [address] | | | | | | | | +--------+---------+ + + + as of this encounter Visit Diagnoses Not on filein this encounter"
--- OUTSIDE RECORDS SUMMARY | ~2019-02-06 | XMS | Encounter Summary ---
Demographics + + + | Address | [address] | | | [place] [address] | + + + | Home Phone | | + + + | Preferred Language | Unknown | + + + | Marital Status | | + + + | Bahai Affiliation | 1077 | + + + | Race | Unknown | + + + | Ethnic Group | Unknown | + + + Author + + + | Author | [facility] | | | and [place] | + + + | Organization | [facility] | | | and [place] [...] Team Providers + +------+ + | Care Steel Post Installer Name | Role | Phone | + +------+ + | Vi Johnson | PCP | | | PA | | | + +------+ + Encounter Details +--------+ + + + + | Date | Type | Department | Care Team | Description | +--------+ + + + + | 01/22/ | Ancillary | [facility] | Provider, | | | 2019 | Orders | MED CTR EXTERNAL | [address] | | | | | IMAGING | Radha [address] | | | | | [phone] | [place] [address] | | +--------+ + + + + [...] [address] | | | | | | [place] | | | | | | [address] | | | | | | | | +--------+---------+ + + + | 04/22/ | Office | Neurosurgery | Crow Bates MD | | | 2018 | Visit | | [address] [place] | | | | | | [address] [place] | | | | | | [address] | | | | | | | | +--------+---------+ + + + as of this encounter Results XR Chest 2 Vws (01/21/2019 0900) + + + | Narrative | Performed [...]
--- OUTSIDE RECORDS SUMMARY | ~2019-02-06 | XMS | Encounter Summary ---
Demographics + + + | Address | [address] | | | [place] [address] | + + + | Home Phone | | + + + | Preferred Language | Unknown | + + + | Marital Status | | + + + | Hoahaoism Affiliation | 1077 | + + + | Race | Unknown | + + + | Ethnic Group | Unknown | + + + Author + + + | Author | [facility] | | | and [place] | + + + | Organization | [facility] | | | and [...] Team Providers + +------+ + | Care Band Machine Operator Name | Role | Phone [...] | | | | unspecified | | [address] Phone: | | | | | scoliosis | | [phone] | | | | | type, | | Fax: | | | | | unspecified | | [phone] | | | | | spinal | [...] | | | | | | | IA SPINAL | | | | | | | FUSION,ANT,E | | | | | | | A ADNL LEVEL | | | | | | | IA SPINE | | | | | | | FUSN,POST | | | | | | | TECH,EA | | | | | | | ADDNL SGMT | | | | | | | IA ARTHDSIS | | | | | | [...] | | | | | | SEG IA INSJ | | | | | | | BIOMCHN DEV | | | | | | | | | | | | | | INTERVERTEBR | | | | | | | AL DSC SPC | | | | | | | W/ARTHRD IA | | | | | | | [...] | | | | | | SEG IA | | | | | | | LAMINEC/FACE | | | | | | | TECT/FORAMIN | | | | | | | ,EACH ADDNL | | | +--------+--------+ + + + + Encounter Details +--------+---------+ + + + | Date | Type | Department | Care Team | Description | +--------+---------+ + + + | 01/26/ | Surgery | [facility] | Crow Bates MD | L2-3, L3-4 and L4-5 | | 2019 | | MED CTR OR INTRA OP | [address] [place] | Lateral Anterior | | | | [address] | [address] [place] | Interbody Fusion | | | | [place] | [address] | with L5-S1 | | | | [address] | | Tranforaminal Lumbar | | | | [phone] | | Interbody Fusion | +--------+---------+ + [...] Admitting Physician: Crow Bates MD PCP: Vi Johnosn Discharging Physician: Freddy Og PA-C Primary Discharge [...] Electronically signed by: Freddy Og, 01/30/2019 10:10 [facility] in this encounter Discharge Instructions Freddy Og [...] to your 1 month post op appointment. [id number] [employer]. [address] [place] [id number]. All righ ts reserved. This information is [...] + + + +---------+ + + | [place]-3 Fatty | Take 1,000 mg by | [...] may be different from t he original. [facility] Rehabilitation Medicine Daily Progress Note Date: 01/30/2019 [...] L3-4, L4-5, L5-S1 7. L5 and partial K8pkzfeumxvoz, L5-L4gkwpdnijdfi, L5 and K4sdgshvcrqvon for decompre ssion of L5 and G0egtlry 3. Advanced lumbar degenerative arthritic and disc [...] I met with the CLAIR PA and piano case maker and reviewed the overall plan of care. We discussed patient's current status. She is doing well and is ready for discharge to [facility] with home health. Signed: MD Earle Gutierrez Derek E, PA-C - 01/30/2019 1004 PDTFormatting of this note may be different from the original. [facility] NEUROSURGERY PROGRESS NOTE PATIENT NAME: Lulu Granados [...] has no apparent deficits with short or usp memory. MOTOR EXAM: Motor strength is L [...] note may be different from the original. [facility] NEUROSURGERY PROGRESS NOTE PATIENT NAME: Lulu Granados [...] has no apparent deficits with short or tank terminal gauger memory. MOTOR EXAM: Motor strength is L [...] note may be different from the original. [facility] NEUROSURGERY PROGRESS NOTE PATIENT NAME: Lulu Granados [...] has no apparent deficits with short or tank terminal gauger memory. MOTOR EXAM: Motor strength is L [...] ble that patient may also need a long term facility. ELECTRONICALLY SIGNED BY: Freddy Og PA-C, 01/28/2019 9:05Hill, Walter Sheridan MD - 01/27/2019 9525 PDTWe are evaluating the patient regarding her potential to benefit and to lerate full inpatient rehab. I am checking with our rehab therapist to see if our program is her best option .Freddy Og PA-C - 01/27/2019 8691 PDTFormatting of this note may be different from the origina l. [facility] NEUROSURGERY PROGRESS NOTE PATIENT NAME: Lulu Granados [...] has no apparent deficits with short or usp memory. MOTOR EXAM: Motor strength is stable [...] ble that patient may also need a long term facility. ELECTRONICALLY SIGNED BY: Freddy Og PA-C, [...] >=60 mL/min/1.73m2 | [facility] | | [place] | | | [facility] | | [...] [address] | [place] | [phone] | | [facility] | | [address] | | | - LABORATORY | | [...] + | [facility] | [address] | [place] | [phone] | | [facility] | | [address] | | | - LABORATORY | | | | + + + + + Extra Lavender Top Tube (01/27/2019622) + +-------+ + + | Component | Value | Ref Range | Performed At | + +-------+ + + | Extra Lavender Top | Done | | [facility] | | Tube | | | [facility] | | | | | CENTER [...] [address] | [place] | [phone] | | [facility] | | [address] | | | - LABORATORY | | [...] | >60 | >=60 mL/min/1.73m2 | [facility] | | [place] | | | [facility] | | | | | CENTER - | | | | | LABORATORY | + +---------+ + + | Ca | 9.1 | 8.7 - 10.4 mg/dL | [facility] | | | | | [facility] | | | | | CENTER - | | | | | LABORATORY | + +---------+ + + | BUN/Creatinine Ratio | 15.3 | | [facility] | | | | | [facility] | | | | | CENTER [...] ST. | [address] | [place] | [phone] | | [facility] | | [address] | | | - LABORATORY | | [...] | | | |Dictated and Signed by: Mihcael Justin MD | | Electronically signed: 01/26/2019 [...] + | [facility] | [address] | [place] | [phone] | | [facility] | | [address] | | | - LABORATORY | | [...]
--- OUTSIDE RECORDS SUMMARY | ~2019-02-06 | XMS | Encounter Summary ---
Demographics + + + | Address | [address] | | | [place] [address] | + + + | Home Phone | | + + + | Preferred Language | Unknown | + + + | Marital Status | | + + + | Quaker Affiliation | 1077 | + + + | Race | Unknown | + + + | Ethnic Group | Unknown | + + + Author + + + | Author | [facility] | | | and [place] | + + + | Organization | [facility] | | | and [...] Team Providers + +------+ + | Care Hog Confinement System Manager Name | Role | Phone | [...] [address] | | | | | [phone] | [place] [address] | | +--------+ + + + + [...] [address] | | | | | | [address] [place] [address] | | | | | | [place] | | | | | | [address] | | | | | | | | +--------+---------+ + + + | 04/22/ | Office | Neurosurgery | Crow Bates MD | | | 2018 | Visit | | [address] [facility] | | | | | | [address] [place] | | | | | | [address] | | | | | | | [...]
--- OUTSIDE RECORDS SUMMARY | ~2019-02-06 | XMS | Encounter Summary ---
Demographics + + + | Address | [address] | | | [place] [address] | + + + | Home Phone | | + + + | Preferred Language | Unknown | + + + | Marital Status | | + + + | Judaism Affiliation | 1077 | + + + | Race | Unknown | + + + | Ethnic Group | Unknown | + + + Author + + + | Author | [facility] | | | and [place] | + + + | Organization | [facility] | | | and [place] | [...] Team Providers + +------+ + | Care Balance Truing Inspector Name | Role | Phone | + [...] | | | | unspecified | | [address] Phone: | | | | | scoliosis | | [phone] | | | | | type, | | Fax: | | | | | unspecified | | [phone] | | | | | spinal | [...] | | | | | | | LA SPINAL | | | | | | | FUSION,ANT,E | | | | | | | A ADNL LEVEL | | | | | | | LA SPINE | | | | | | | FUSN,POST | | | | | | | TECH,EA | | | | | | | ADDNL SGMT | | | | | | | LA ARTHDSIS | | | | | | [...] | | | | | | SEG LA INSJ | | | | | | | BIOMCHN DEV | | | | | | | | | | | | | | INTERVERTEBR | | | | | | | AL DSC SPC | | | | | | | W/ARTHRD LA | | | | | | | [...] | | | | | | SEG LA | | | | | | | LAMINEC/FACE | | | | | | | TECT/FORAMIN | | | | | | | ,EACH ADDNL | | | +--------+--------+ + + + + Encounter Details +--------+ + + + + | Date | Type | Department | Care Team | Description | +--------+ + + + + | 01/26/ | Hospital | [facility] | Crow Bates MD | Lumbar | | 2019 | Encounter | MED CTR XRAY [address] | [address] [facility] | radiculopathy; | | | | [place] | [address] [place] | Scoliosis, | | | | [place] [address] | [address] | unspecified | | | | [phone] | | scoliosis type, | | | | | | unspecified spinal | | | | | | region; Cervical | | | | | | myelopathy (HCC); | | | | | | Bilateral lumbar | | | | | | radiculopathy; S/P | | | [...] | | | | | claudication | +--------+ + + + + Social [...] + + + +---------+ + + | Cal[place]-3 Fatty | Take 1,000 mg by | [...] [place] | | | | | | [address] | | | | | | | | +--------+---------+ + + + | 04/22/ | Office | Neurosurgery | Crow Bates MD | | | 2019 | Visit | | [address] [place] | | | | | | [address] [place] | | | | | | [address] | | | | | | | | +--------+---------+ + + + as of this encounter Procedures + +--------+ + + + | Procedure Name | Priori | Date/Time | Associated Diagnosis | Comments | | | ty | | | | + +--------+ + + + | XR SCOLIOSIS ENTIRE | Routin | 01/26/2019 | Lumbar | Results for this | | SPINE 6+ VIEWS | e | 0940 PDT | radiculopathy | procedure are in the | | | | | Scoliosis, | results section. | | | | | unspecified | | | | | | scoliosis type, | | | | | | unspecified spinal | | | | | | region | | + +--------+ + + + | XR CHEST PA AND | Routin | 01/26/2019 | Cervical | Results for this | | LATERAL | e | 0940 PDT | myelopathy (HCC) | procedure are in the | | | | | Lumbar radiculopathy | results section. 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, | | | | | | unspecified spinal | | | | | | osteoarthritis | | | | | | complication status | | | | | | Lumbar facet | | | | | | arthropathy Lumbar | | | | | | foraminal stenosis | | | | | | DDD (degenerative | | | | | | disc disease), | | | | | | lumbar Age-related | | | | | | osteoporosis without | | | | | | current | | | | | | pathological | | | | | | fracture - DEXA | | | | | | 05/2017 shows | | | | | | T-Score: L1-4 -1.0, | | | | | | Femur -2.2 | | | | | | Scoliosis of lumbar | | | | | | spine, unspecified | | | | | | scoliosis type | | | | | | Spinal stenosis of | | | | | | lumbar region, | | | | | | unspecified whether | | | | | | neurogenic | | | | | | claudication present | | + +--------+ + + + in this encounter Results XR Chest PA and [...] | | | + +---------+ + + XR Scoliosis Entire Spine 6+ Views (01/26/2019 [...] Diagnosis | + + | Lumbar radiculopathy | + + | Thoracic or lumbosacral neuritis or radiculitis, unspecified | + + | Scoliosis, unspecified scoliosis type, unspecified spinal region | + + | Cervical myelopathy (HCC) | + + | Cervical spondylosis with myelopathy | + + | Bilateral lumbar radiculopathy [...]
--- OUTSIDE RECORDS SUMMARY | ~2019-02-06 | XMS | Clinical Summary ---
Demographics + + + | Address | [address] | | | [place] [address] | + + + | Home Phone | | + + + | Preferred Language | Unknown | + + + | Marital Status | | + + + | [employer] Affiliation | 1077 | + + + | Race | Unknown | + + + | Ethnic Group | Unknown | + + + Author + + + | Author | [facility] | | | and [place] | + + + | Organization | [facility] | [...] Team Providers + +------+ + | Care Quantitative Developer Name | Role | Phone | + +------+ + | Vi Johnson | PP | | | PA | | | + +------+ + Allergies + + + + + + | Active Allergy | Reactions | Severity | Noted | Comments | | | | | Date | | + + + + + + | Nickel | Rash | Low | | | + + + + + + | Sheep | Itching, Rash | Low | 09/01/20 | WOOL | | | | | 17 | | + + + + + + Current Medications + + + +---------+------+------+-------+ | Prescription | Sig. | Disp. | Refills | Star | End | Statu | | | | | | t | Date | s | | | | | | Date | | | + + + +---------+------+------+-------+ | simvastatin | Take 40 mg by mouth | | | 05/0 | | Activ | | (ZOCOR) 40 mg tablet | Daily. | | | 4/20 | | e | | | | | | 10 | | | + + + +---------+------+------+-------+ | amLODIPine | Take 5 mg by mouth | | | | | Activ | | (NORVASC) 5 mg | Daily. | | | | | e | | tablet | | | | | | | + + + +---------+------+------+-------+ | levothyroxine | Take 75 mcg by mouth | | | | | Activ | | (SYNTHROID, | every morning | | | | | e | | LEVOTHROID) 75 MCG | (before breakfast). | | | | | | | tablet | | | | | | | + + + +---------+------+------+-------+ | betamethasone | Apply topically 2 | | | | | Activ | | valerate (VALISONE) | times daily. | | | | | e | | 0.1 % cream | | | | | | | + + + +---------+------+------+-------+ | aspirin 81 MG | Take 81 mg by mouth | | | | | Activ | | tablet | Daily. | | | | | e | + + + +---------+------+------+-------+ | polyethylene | Place 1 drop into | | | | | Activ | | glycol-propylene | both eyes EVERY 4 TO | | | | | e | | glycol (SYSTANE) | 6 HOURS NEEDED | | | | | | | 0.4-0.3% ophthalmic | for Dry Eyes. | | | | | | | solution | | | | | | | + + + +---------+------+------+-------+ | Morley-3 Fatty | Take 1,000 mg by | | | | | Activ | | Acids (FISH OIL) | mouth 3 times daily. | | | | | e | | 1360 MG CAPS | | | | | | | + + + +---------+------+------+-------+ | Multiple Vitamin | Take by mouth. | | | | | Activ | | (THERAGRAN PO) | | | | | | e | + + + +---------+------+------+-------+ | cetirizine | Take 10 mg by mouth | | 0 | 10/2 | | Activ | | (ZYRTEC) 10 mg | Daily. | | | 20 | | e | | tablet | | | | 17 | | | + + + +---------+------+------+-------+ | benazepril | Take 10 mg by mouth | | | | | Activ | | (LOTENSIN) 10 mg | Daily. | | | | | e | | tablet | | | | | | | + + + +---------+------+------+-------+ | ascorbic acid | Take 500 mg by mouth | | | | | Activ | | (VITAMIN C) 500 mg | Daily. | | | | | e | | tablet | | | | | | | + + + +---------+------+------+-------+ | famotidine | Take 1 tablet by | 60 | 1 | 03/1 | | Activ | | (PEPCID) 20 mg | mouth 2 times daily. | tablet | | 07/24 | | e | | tabletIndications: | | | | 18 | | | | Gastroesophageal | | | | | | | | reflux disease, | | | | | | | | esophagitis presence | | | | | | | | not specified | | | | | | | + + + +---------+------+------+-------+ | benzonatate | Take 200 mg by mouth | | 0 | 09/1 | | Activ | | (TESSALON) 200 MG | 3 times daily as | | | 8/20 | | e | | capsule | needed. | | | 18 | | | + + + +---------+------+------+-------+ | ergocalciferol | Take 50,000 Units by | | 0 | 10/0 | | Activ | | (VITAMIN D-2) 50,000 | mouth Once a week. | | | 3/20 | | e | | units capsule | | | | 18 | | | + + + +---------+------+------+-------+ | meloxicam (MOBIC) | Take 15 mg by mouth | | 0 | 09/2 | | Activ | | 15 mg tablet | Daily. | | | 5/20 | | e | | | | | | 18 | | | + + + +---------+------+------+-------+ | oxyCODONE | Take 1-2 tablets by | 120 | 0 | 03/2 | | Activ | | (ROXICODONE) 5 mg | mouth every 4 hours | tablet | | 9/20 | | e | | tablet | as needed for Pain. | | | 19 | | | | | Exempt: patient had | | | | | | | | recent major spine | | | | | | | | surgery. | | | | | | + + + +---------+------+------+-------+ | methocarbamol | Take 1-2 tablets by | 90 | 3 | 03/2 | | Activ | | (ROBAXIN) 750 mg | mouth every 6 hours | tablet | | 20 | | e | | tablet | as needed for Muscle | | | 19 | | | | | spasms. | | | | | | + + + +---------+------+------+-------+ | lactulose 10 g/15 | Take 30 mLs by mouth | 240 mL | 2 | 03/2 | | Activ | | mL solution | 2 times daily. For | | | 07/24 | | e | | | constipation | | | 19 | | | + + + +---------+------+------+-------+ | naloxone (NARCAN) | 1 spray by Nasal | 1 each | 0 | 03/2 | | Activ | | 4 mg/nasal spray | route as needed for | | | 9/20 | | e | | | Decreased | | | 19 | | | | | Responsiveness. | | | | | | | | Please provide | | | | | | | | counseling/education | | | | | | | | on appropriate use. | | | | | | + + + +---------+------+------+-------+ | zolpidem (AMBIEN) | Take 5 mg by mouth | | | | 03/2 | Disco | | 5 mg tablet | nightly as needed | | | | 9/20 | ntinu | | | for Sleep. | | | | 19 | ed | + + + +---------+------+------+-------+ | cyclobenzaprine | Take 1 tablet by | 90 | 3 | 02/2 | 03/2 | Disco | | (FLEXERIL) 10 mg | mouth every 8 hours | tablet | | 0/20 | 5/20 | ntinu | | tablet | as needed for Muscle | | | 18 | 19 | ed | | | spasms. | | | | | | + + + +---------+------+------+-------+ Active Problems + + + | Problem | Noted Date | + + + | Scoliosis of thoracolumbar spine, unspecified scoliosis type | 01/09/2019 | + + + | Other secondary kyphosis, thoracolumbar region | 01/09/2019 | + + + | H/O Cervical Fusion - ACDF C4-6 | 01/20/2018 | + + + + + | Overview: 12/23/2017 C4-5, C5-6 Acdf | + + + + + | Cervical spinal stenosis | 09/18/2017 | + + + | Cervical myelopathy (HCC) | 09/18/2017 | + + + | Foraminal stenosis of cervical region | 09/18/2017 | + + + | Lumbar radiculopathy | 07/11/2017 | + + + | Neurogenic claudication | 07/11/2017 | + + + | Hyperreflexia | 07/11/2017 | + + + | Spondylosis of lumbar joint | 07/11/2017 | + + + | Lumbar facet arthropathy | 07/11/2017 | + + + | Bilateral lumbar radiculopathy | 04/18/2017 | + + + | Lumbar foraminal stenosis | 04/18/2017 | + + + | DDD (degenerative disc disease), lumbar | 04/18/2017 | + + + | Osteoporosis | | + + + + + | Overview: Age-related osteoporosis without current | | pathological fracture - DEXA 05/2017 shows T-Score: L1-4 -1.0, | | Femur -2.2 | + + + +---+ | SCOLIOSIS | | + +---+ | SPINAL STENOSIS | | + +---+ | Osteoporosis | | + +---+ | Hypothyroidism | | + +---+ | Lumbar spondylosis | | + +---+ | Dyslipidemia | | + +---+ | Hypertension | | + +---+ Encounters +--------+ + + + + | Date | Type | Specialty | Care Team | Description | +--------+ + + + + | 02/03/ | Telephone | | Crow Bates MD | Post Op (PO Call) | | 2018 | | | | | +--------+ + + + + | 01/26/ | Hospital | | Crow Bates MD | Gait abnormality | | 2019 - | Encounter | | | (Primary Dx); | | | | | | Bilateral lumbar | | 01/30/ | | | | radiculopathy | | 2018 | | | | | +--------+ + + + + +---+ + | | Discharge | | | Summaries | | | - Earle, | | | Freddy Mayers, | | | PA-C - | | | 01/30/2019 | | | 1010 PDT | | | Formatting | | | of this | | | note may be | | | different | | | from the | | | original.DI | | | BENJAMIN | | | SUMMARYPt. | | | Name/Age/DO | | | B: Rod | | | Keeley Granados | | | 78 y.o. | | | 1940 | | | | | | Medical | | | Record | | | Number: | | | [id number] | | | Date of | | | Admission: | | | 01/26/2019 | | | Date | | | of | | | Discharge: | | | | | | 01/30/2019Ad | | | mitting | | | Physician: | | | Crow Ngo | | | MD Jana | | | PCP: | | | Vi Farris | | | | | | AddlemanDis | | | charging | | | Physician: | | | Freddy Mayers. | | | Earle, | | | PA-C | | | Primary | | | Discharge | | | Dx: | | | Scoliosis | | | of | | | thoracolumb | | | ar spine, | | | unspecified | | | scoliosis | | | type | | | Other | | | secondary | | | kyphosis, | | | thoracolumb | | | ar region | | | | | | Lumbar | | | facet | | | arthropathy | | | Yes | | | Other | | | osteoarthri | | | tis of | | | spine, | | | lumbar | | | region | | | | | | Lumbar | | | foraminal | | | stenosis | | | | | | Bilateral | | | lumbar | | | radiculopat | | | hy | | | Secondary | | | Discharge | | | Dx: | | | Patient | | | Active | | | Problem | | | List | | | Diagnosis | | | | | | | | | Osteoporosi | | | s | | | SCOLIOSIS | | | | | | SPINAL | | | STENOSIS | | | Bilateral | | | lumbar | | | radiculopat | | | hy | | | Lumbar | | | foraminal | | | stenosis | | | DDD | | | (degenerati | | | ve disc | | | disease), | | | lumbar | | | Lumbar | | | radiculopat | | | hy | | | | | | Neurogenic | | | claudicatio | | | n | | | | | | Hyperreflex | | | ia | | | | | | Spondylosis | | | of lumbar | | | joint | | | Lumbar | | | facet | | | arthropathy | | | | | | Cervical | | | spinal | | | stenosis | | | Cervical | | | myelopathy | | | | | | Foraminal | | | stenosis | | | of cervical | | | region | | | | | | Osteoporosi | | | s | | | | | | Hypothyroid | | | ism | | | Lumbar | | | spondylosis | | | | | | | | | Dyslipidemi | | | a | | | | | | Hypertensio | | | n | | | H/O | | | Cervical | | | Fusion - | | | ACDF C4-6 | | | | | | Scoliosis | | | of | | | thoracolumb | | | ar spine, | | | unspecified | | | scoliosis | | | type | | | Other | | | secondary | | | kyphosis, | | | thoracolumb | | | ar region | | | Reason for | | | Admission | | | (Brief): | | | The patient | | | is a 78 | | | y.o. female | | | that | | | presents | | | for a | | | follow up | | | to discuss | | | back | | | surgery. | | | Patient | | | returns and | | | overall is | | | doing okay | | | from her | | | neck but | | | has | | | persistent | | | issue with | | | her back | | | and legs. | | | Her back | | | has been a | | | bit better | | | since her | | | operation | | | on her neck | | | for | | | myelopathy | | | but her | | | lumbar | | | radiculopat | | | hy has | | | increased. | | | She has | | | persistent | | | lateral leg | | | to the | | | dorsal foot | | | pain and | | | on the | | | right and | | | now left | | | posterior | | | leg pain | | | that has | | | increased. | | | Hospital | | | Course, | | | including | | | Complicatio | | | ns: The | | | patient was | | | admitted | | | for planned | | | surgery. | | | She had a | | | lumbar | | | fusion | | | completed | | | without | | | complicatio | | | n. After | | | surgery, | | | there were | | | no events. | | | She did | | | struggle | | | with pain | | | and nausea | | | the first | | | 24 hours | | | which | | | slowed her | | | up a little | | | bit. She | | | mobilized | | | well very | | | well after | | | PO day 2. | | | On PO day 2 | | | there was | | | notable | | | weakness in | | | her left | | | leg. | | | Inpatient | | | rehab was | | | considered | | | but on PO | | | day 3 she | | | seemed to | | | turn the | | | corner and | | | we felt it | | | was | | | appropriate | | | to DC home | | | on PO day | | | 4. The | | | patient was | | | discharged | | | home and | | | will | | | follow-up | | | as an | | | outpatient. | | | There were | | | no cardiac | | | issues, | | | pulmonary | | | issues, | | | evidence of | | | DVT or | | | infection. | | | | | | Prescriptio | | | n | | | Monitoring | | | Program | | | checked | | | prior to | | | discharge. | | | | | | Preoperativ | | | e MEDD | | | 0MEDD at | | | discharge= | | | Outpatient | | | Morphine | | | Equivalent | | | Daily Dose | | | (MEDD) | | | 01/30/19 and | | | after | | | 45-90 mg | | | MEDD Order | | | Name Dose | | | Route | | | Frequency | | | Maximum | | | MEDD | | | oxyCODONE | | | (ROXICODONE | | | ) 5 mg | | | tablet 5-10 | | | mg Oral | | | EVERY 4 | | | HOURS PRN | | | 45-90 mg | | | MEDD Total | | | Potential | | | Daily | | | Morphine | | | Equivalence | | | 45-90 mg | | | MEDD | | | Calculation | | | | | | Information | | | | | | oxyCODONE | | | (ROXICODONE | | | ) 5 mg | | | tablet | | | oxyCODONE 5 | | | mg Tabs: | | | single dose | | | of 5-10 mg | | | * 6 doses | | | per day * | | | morphine | | | equivalence | | | factor of | | | 1.5 = 45-90 | | | mg MEDD | | | | | | based on | | | use and | | | adjustments | | | of | | | medications | | | to achieve | | | adequate | | | management | | | of symptoms | | | during | | | hospital | | | course. | | | Patient has | | | been | | | counseled | | | on | | | expectation | | | to taper | | | the use of | | | medications | | | and has | | | been | | | provided | | | education | | | on the | | | risks, | | | benefits, | | | and | | | alternative | | | s to | | | medications | | | .Naloxone | | | is ordered | | | due to risk | | | of opiate | | | overdoseMed | | | ications | | | Reconciled | | | upon | | | Discharge | | | are: | | | Discharge | | | Medications | | | New | | | Medications | | | Details | | | lactulose | | | 10 g/15 mL | | | solution | | | Take 30 mLs | | | by mouth 2 | | | times | | | daily. For | | | constipatio | | | n | | | methocarbam | | | ol 750 mg | | | tablet Take | | | 1-2 | | | tablets by | | | mouth every | | | 6 hours as | | | needed for | | | Muscle | | | spasms.aka: | | | ROBAXIN | | | naloxone 4 | | | mg/nasal | | | spray 1 | | | spray by | | | Nasal route | | | as needed | | | for | | | Decreased | | | Responsiven | | | ess. Please | | | provide | | | counseling/ | | | education | | | on | | | appropriate | | | use.aka: | | | NARCAN | | | oxyCODONE 5 | | | mg tablet | | | Take 1-2 | | | tablets by | | | mouth every | | | 4 hours as | | | needed for | | | Pain. | | | Exempt: | | | patient had | | | recent | | | major spine | | | | | | surgery.aka | | | : | | | ROXICODONE | | | Changed | | | Medications | | | Details | | | famotidine | | | 20 mg | | | tablet Take | | | 1 tablet | | | by mouth 2 | | | times | | | daily.What | | | changed: | | | how much to | | | takeaka: | | | PEPCID | | | Unchanged | | | Medications | | | Details | | | amLODIPine | | | 5 mg | | | tablet Take | | | 5 mg by | | | mouth | | | Daily.aka: | | | NORVASC | | | ascorbic | | | acid 500 mg | | | tablet | | | Take 500 mg | | | by mouth | | | Daily.aka: | | | VITAMIN C | | | aspirin 81 | | | MG tablet | | | Take 81 mg | | | by mouth | | | Daily. | | | benazepril | | | 10 mg | | | tablet Take | | | 10 mg by | | | mouth | | | Daily.aka: | | | LOTENSIN | | | benzonatate | | | 200 MG | | | capsule | | | Take 200 mg | | | by mouth 3 | | | times | | | daily as | | | needed.aka: | | | TESSALON | | | betamethaso | | | ne valerate | | | 0.1 % | | | cream Apply | | | topically | | | 2 times | | | daily.aka: | | | VALISONE | | | cetirizine | | | 10 mg | | | tablet Take | | | 10 mg by | | | mouth | | | Daily.aka: | | | zyrTEC | | | ergocalcife | | | rol 50,000 | | | units | | | capsule | | | Take 50,000 | | | Units by | | | mouth Once | | | a week.aka: | | | VITAMIN | | | D-2 Fish | | | Oil 1360 MG | | | Caps Take | | | 1,000 mg by | | | mouth 3 | | | times | | | daily. | | | levothyroxi | | | ne 75 MCG | | | tablet Take | | | 75 mcg by | | | mouth every | | | morning | | | (before | | | breakfast). | | | aka: | | | SYNTHROID | | | meloxicam | | | 15 mg | | | tablet Take | | | 15 mg by | | | mouth | | | Daily.aka: | | | MOBIC | | | simvastatin | | | 40 mg | | | tablet Take | | | 40 mg by | | | mouth | | | Daily.aka: | | | ZOCOR | | | SYSTANE | | | 0.4-0.3% | | | ophthalmic | | | solutionGen | | | isaias drug: | | | | | | polyethylen | | | e | | | glycol-prop | | | ylene | | | glycol | | | Place 1 | | | drop into | | | both eyes | | | EVERY 4 TO | | | 6 HOURS | | | NEEDED for | | | Dry Eyes. | | | THERAGRAN | | | PO Take by | | | mouth. | | | Discontinue | | | d | | | Medications | | | zolpidem | | | 5 mg | | | tabletaka: | | | AMBIEN | | | Condition | | | on | | | Discharge: | | | StableFollo | | | w-Up Plans: | | | | | | Follow-up: | | | 3-4 weeks | | | for routine | | | follow-up. | | | | | | Follow-up | | | with | | | primary | | | care | | | physician | | | as needed. | | | Diet: | | | Resume home | | | diet | | | Activity: | | | Continue to | | | follow | | | guidelines | | | and | | | precautions | | | as | | | previously | | | discussed. | | | Bracing: | | | C Brace | | | Electronic[employer] | | | lly signed | | | by: | | | Freddy E. | | | Sucharda, | | | 01/30/2019 | | | 10:10 [facility] | [facility] | +---+ + +--------+ +---+ + + | 01/26/ | Hospital | | Crow Bates MD | Lumbar | | 2018 | Encounter | | | radiculopathy; | | | | | | Scoliosis, | | | | | | [...] | | | | claudication | +--------+ +---+ + + | 01/26/ | Hospital | | Crow Bates MD | Lumbar | | 2018 | Encounter | | | radiculopathy; | | | | | | Status post lumbar | | | | | | spinal fusion | +--------+ +---+ + + | 01/26/ | Hospital | | Crow Bates MD | | | 2018 | Encounter | | | | +--------+ +---+ + + | 01/26/ | Procedure | | | | | 2018 | Pass | | | | +--------+ +---+ + + | 01/26/ | Surgery | | Crow Bates MD | L2-3, L3-4 and L4-5 | | 2018 | | | | Lateral Anterior | | | | | | Interbody Fusion | | | | | | with L5-S1 | | | | | | Tranforaminal Lumbar | | | | | | Interbody Fusion | +--------+ +---+ + + | 01/23/ | Anesthesia | | Shell Wheeler MD | | | 2019 | Event | | | | +--------+ +---+ + + | 01/22/ | Telephone | | Crow Bates MD | Procedure (Reminder) | | 2019 | | | | | +--------+ +---+ + + | 01/22/ | Ancillary | | Provider, | | | 2018 | Orders | | MD Ping | | +--------+ +---+ + + | 01/21/ | Imaging | | Provider, | | | 2018 | Exam | | MD Ping | | +--------+ +---+ + + | 01/20/ | Telephone | | Crow Bates MD | LABS | | 2019 | | | | | +--------+ +---+ + + | 01/20/ | Orders Only | | Crow Bates MD | Lumbar radiculopathy | | 2018 | | | | (Primary Dx); | | | | | | Status post lumbar | | | | | | spinal fusion | +--------+ +---+ + + | 01/20/ | Orders Only | | Crow Bates MD | Lumbar radiculopathy | | 2019 | | | | (Primary Dx); | | | | | | Scoliosis, | | | | | | unspecified | | | | | | scoliosis type, | | | | | | unspecified spinal | | | | | | region | +--------+ +---+ + + | 01/19/ | Telephone | | Crow Bates MD | Procedure | | 2019 | | | | | +--------+ +---+ + + | 01/12/ | Ancillary | | Leydi, | | | 2018 | Orders | | MD Ping | | +--------+ +---+ + + | 01/12/ | Episode | | Berenice Reddy, | | | 2018 | Changes | | Cert MA | | +--------+ +---+ + + | 01/12/ | Procedure | | | | | 2019 | Pass | | | | +--------+ +---+ + + | 01/09/ | Office | | Crow Bates MD | Lumbar facet | | 2019 | Visit | | | arthropathy (Primary | | | | | | Dx); Scoliosis of | | | | | | thoracolumbar spine, | | | | | | unspecified | | | | | | scoliosis type; | | | | | | Other secondary | | | | | | kyphosis, | | | | | | thoracolumbar | | | | | | region; Other | | | | | | osteoarthritis of | | | | | | spine, lumbar | | | | | | region; Lumbar | | | | | | foraminal stenosis; | | | | | | Bilateral lumbar | | | | | | radiculopathy | +--------+ +---+ + + | 01/09/ | Hospital | | Freddy Og, | S/P cervical spinal | | 2018 | Encounter | | PA-C | fusion; Cervical | | | | | | myelopathy (HCC) | +--------+ +---+ + + | 01/09/ | Orders Only | | Crow Bates MD | Lumbar radiculopathy | | 2018 | | | | (Primary Dx); | | | | | | Scoliosis, | | | | | | unspecified | | | | | | scoliosis type, | | | | | | unspecified spinal | | | | | | region; Lumbar | | | | | | spondylosis; Neural | | | | | | foraminal stenosis | | | | | | of lumbar spine; | | | | | | Neurogenic | | | | | | claudication | +--------+ +---+ + + | 01/09/ | Documentati | | Crow Bates MD | Pain Management | | 2018 | on | | | | +--------+ +---+ + + | 01/09/ | Orders Only | | Crow Bates MD | Cervical myelopathy | | 2018 | | | | (HCC) (Primary Dx); | | | | | | Lumbar | | | | | | radiculopathy; | | | | | | Bilateral [...] | | | | Hyperreflexia | +--------+ +---+ + + | 01/07/ | Imaging | | Provider, | | | 2018 | Exam | | MD Ping | | +--------+ +---+ + + from Last 3 Months Immunizations + + + + | Name | Dates Previously Given | Next Due | + + + + | INFLUENZA, [id number], | 07/05/2017 | | | UNSPECIFIED | | | + + + + | INFLUENZA, | 07/23/2018, 07/19/2017 | | | UNSPECIFIED | | | | FORMULATION | | | + + + + | PNEUMOCOCCAL | 09/12/2017 | | | CONJUGATE 13-VALENT | | | | (PCV13) | | | + + + + | TDAP, (ADOL/ADULT) | 09/12/2017 | | + + + + | ZOSTER, 1 DOSE | 06/02/2012 | | | (ZOSTAVAX) | | | + + + + Family History + + +------+ + | Medical History | Relation | Name | Comments | + + +------+ + | Cancer | Brother | | Adenocarcinoma Cinema | + + +------+ + | No known problems | Child | | | + + +------+ + | No known problems | Child | | | + + +------+ + | Seizures | Daughter | | epilepsy | + + +------+ + | Alcohol abuse | Father | | | + + +------+ + | Cancer | Father | | | + + +------+ + | Heart disease | Father | | | + + +------+ + | No known problems | Grandchil | | | | | d | | | + + +------+ + | No known problems | Grandchil | | Great -grandchild | | | d | | | + + +------+ + | Cancer | Maternal | | Spinal | | | Aunt | | | + + +------+ + | Early | Maternal | | Appendix | | | Grandfath | | | | | er | | | + + +------+ + | Early | Maternal | | Child | | | Grandmoth | | | | | er | | | + + +------+ + | Early | Maternal | | Drowned | | | Uncle | | | + + +------+ + | Alzheimer's disease | Mother | | | + + +------+ + | Arthritis | Mother | | | + + +------+ + | Heart disease | Mother | | | + + +------+ + | No known problems | Paternal | | | | | Aunt | | | + + +------+ + | Cancer | Paternal | | | | | Grandfath | | | | | er | | | + + +------+ + | Tuberculosis | Paternal | | | | | Grandfath | | | | | er | | | + + +------+ + | Heart disease | Paternal | | | | | Grandmoth | | | | | er | | | + + +------+ + | Early | Paternal | | WWII | | | Uncle | | | + + +------+ + + +------+ + + | Relation | Name | Status | Comments | + +------+ + + | Brother | | | Cancer | | | | (Age | | | | | 70) | | + +------+ + + | Child | | Alive | | + +------+ + + | Child | | Alive | | + +------+ + + | Daughter | | Alive | | + +------+ + + | Father | | | age | | | | (Age | | | | | 85) | | + +------+ + + | Grandchild | | Alive | | + +------+ + + | Grandchild | | Alive | | + +------+ + + | Maternal Aunt | | | cancer | | | | (Age | | | | | 58) | | + +------+ + + | Maternal Grandfather | | | Appendix | | | | (Age | | | | | 23) | | + +------+ + + | Maternal Grandmother | | | Child | | | | (Age | | | | | 28) | | + +------+ + + | Maternal Uncle | | | Drownd | | | | (Age | | | | | 3) | | + +------+ + + | Mother | | | age | | | | (Age | | | | | 82) | | + +------+ + + | Paternal Aunt | | | | | | | (Age | | | | | 83) | | + +------+ + + | Paternal Grandfather | | | pneumonia | | | | (Age | | | | | 84) | | + +------+ + + | Paternal Grandmother | | | | | | | (Age | | | | | 61) | | + +------+ + + | Paternal Uncle | | | WW2 | | | | (Age | | | | | 33) | | + +------+ + + Social History + + + [...] on file | | + + + Last Filed Vital Signs + + + + | Vital Sign | Reading | Time Taken | + + + + | Blood Pressure | 149/67 | 01/30/2019 0817 PDT | + + + + | Pulse | 90 | 01/30/2019 110 PDT | + + + + | Temperature | 36.9 C (98.4 F) | 01/30/2019 0746 PDT | + + + + | Respiratory Rate | 16 | 01/30/2019902 PDT | + + + + | Oxygen Saturation | 92% | 01/30/2019 110 PDT | + + + + | Inhaled Oxygen | - | - | | Concentration | | | + + + + | Weight | 75.2 kg (165 lb 12.6 | 01/26/20190 PDT | | | oz) | | + + + + | Height | 154.5 cm (5' 0.83") | 01/26/20190 PDT | + + + + | Body Mass Index | 31.5 | 01/26/20190 PDT | + + + + Plan of Treatment +--------+---------+ + + + | Date | Type | Specialty | Care Team | Description | +--------+---------+ + + + | 02/23/ | Office | | Jose Rosa | | | 2018 | Visit | | KATHERIN Torres [address] | | | | | [address] | | | | | | [place] | | | | | | [id number] | | | | | | | | +--------+---------+ + + + | 04/22/ | Office | | Crow Bates MD | | | 2019 | Visit | | [address] | | | | | | [address] [place] | | | | | | [id number] | | | | | | | | +--------+---------+ + + + + + + + + | Health Maintenance | Due Date | Last Done | Comments | + + + + + | Adult Annual | | | | | Wellness Visit | 5 | | | + + + + + | Vaccine: Zoster (2 | | 06/02/2012 | | | of 3) | 7 | | | + + + + + | Vaccine: | | 09/12/2017 | | | Pneumococcal 65+ | 8 | | | | Low/Medium Risk (2 | | | | | of 2 - PPSV23) | | | | + + + + + | Vaccine: | | 09/12/2017, 06/19/1994 | | | Dtap/Tdap/Td (2 - | 7 | | | | Td) | | | | + + + + + | Vaccine: Influenza | Completed | 07/23/2018, 07/22/2018, | | | | | 07/24/2017, Additional history | | | | | exists | | + + + + + Implants + +--------+--------+ +--------+--------+--------+ | Implanted | Type | Area | Manufacture | Device | Expira | Model | | | | | r | | tion | / | | | | | | Identi | Date | Serial | | | | | | fier | | / Lot | + +--------+--------+ +--------+--------+--------+ | Putty Bone Dbm Grftn 0.5cc - | Bone | N/A: | [employer] - | | 09/08/ | [id number] | | [id number]: Qty: 1 | | Neck | MEDT | | 2020 | | | on 12/23/2017 by Crow Bates | | | | | | /[id number] | | MD [place] | | | | | | 5071 | | | | | | | | / | + +--------+--------+ +--------+--------+--------+ | Cage Syeda Ptc [id number] - | Generi | N/A: | [employer] - | | 10/14/ | [id number] | | [id number]: Qty: 1 on | c | Spine | MEDT | | 2025 | 4 / | | 12/23/2017 by Crow Bates, | | Edilson | | | | /[id number] | | | | al | | | | | + +--------+--------+ +--------+--------+--------+ | Imp Spn Plt Ti Zevo 31mm 2lvl | Generi | N/A: | [employer] - | | | [id number] | | - [id number]: Qty: 1 | c | Spine | MEDT | | | 1 / / | | on 12/23/2017 by Crow Bates | | Edilson | | | | | | MD [place] | | al | | | | | + +--------+--------+ +--------+--------+--------+ | Tlif Oblique [id number] 12deg | Generi | | NUVASIVE - | | | [id number] | | - [id number]: Qty: | c | | NVSV | | | 2 / / | | 1 on 01/26/2019 by Crow Bates | | | | | | | | MD [place] | | | | | | | + +--------+--------+ +--------+--------+--------+ | Bjorn Ti Prebent Lordtc 120mm - | Generi | | NUVASIVE - | | | [id number] | | [id number]: Qty: 2 | c | | NVSV | | | 0 / / | | on 01/26/2019 by Crow Bates | | | | | | | | MD [place] | | | | | | | + +--------+--------+ +--------+--------+--------+ | Imp Spn Intbdy Xlw | Generi | N/A: | NUVASIVE - | | | [id number] | | [id number] - | c | Back | NVSV | | | 0 / / | | [id number]: Qty: 3 | | | | | | | | on 01/26/2019 by Crow Bates | | | | | | | | MD [place] | | | | | | | + +--------+--------+ +--------+--------+--------+ | Tlif Oblique [id number] 12deg | Generi | | NUVASIVE - | | | [id number] | | - [id number]: Qty: | c | | NVSV | | | 2 / / | | 1 on 01/26/2019 by Crow Bates | | | | | | | | MD [place] | | | | | | | + +--------+--------+ +--------+--------+--------+ | Algrft Bone Lord [id number] - | Graft | N/A: | [employer] - | | 08/23/ | [id number] | | [id number]: Qty: 1 on | | Spine | MEDT | | 2019 | | | 12/23/2017 by Crow Bates, | | Cervic | | | | /[id number] | | | | al | | | | 886 | | | | | | | | /[id number] | | | | | | | | 4225 | + +--------+--------+ +--------+--------+--------+ | Graft Infuse Bone Kit Xs - | Graft | N/A: | [employer] - | | 04/03/ | [id number] | | [id number]: Qty: 2 | | Back | MEDT | | 2019 | 0 / | | on 01/26/2019 by Crow Bates | | | | | | /[id number] | | MD [place] | | | | | | [id number] | + +--------+--------+ +--------+--------+--------+ | Graft Infuse Bone Kit Xxs - | Graft | N/A: | [employer] - | | 04/03/ | [id number] | | [id number]: Qty: 1 | | Back | MEDT | | 2019 | 0 / | | on 01/26/2019 by Crow Bates | | | | | | /[id number] | | MD [place] | | | | | | [id number] | + +--------+--------+ +--------+--------+--------+ | Putty Emily 10cc Dbm - | Graft | N/A: | [employer] - | | 09/16/ | [id number] | | [id number]: Qty: 1 | | Back | MEDT | | 2020 | | | on 01/26/2019 by Crow Bates | | | | | | /[id number] | | MD [place] | | | | | | 0-034 | | | | | | | | / | + +--------+--------+ +--------+--------+--------+ | Screw D-Thrd Slf-Drl 4.0x15mm | Screw | N/A: | [employer] - | | | [id number] | | - [id number]: Qty: 2 | | Spine | MEDT | | | 5 / / | | on 12/23/2017 by Crow Bates | | Cervic | | | | | | MD [place] | | al | | | | | + +--------+--------+ +--------+--------+--------+ | Screw D-Thrd Slf-Drl 3.5x15mm | Screw | N/A: | [employer] - | | | [id number] | | - [id number]: Qty: 4 | | Spine | MEDT | | | 5 / / | | on 12/23/2017 by Crow Bates | | Abebaic | | | | | | MD [place] | | al | | | | | + +--------+--------+ +--------+--------+--------+ | Screw Polyax Prcpt 9.5x45mm - | Screw | | NUVASIVE - | | | [id number] | | [id number]: Qty: 2 | | | NVSV | | | 5A / / | | on 01/26/2019 by Crow Bates | | | | | | | | MD [place] | | | | | | | + +--------+--------+ +--------+--------+--------+ | Screw Set - | Screw | | NUVASIVE - | | | [id number] | | [id number]: Qty: 10 | | | NVSV | | | 0 / / | | on 01/26/2019 by Crow Bates | | | | | | | | MD [place] | | | | | | | + +--------+--------+ +--------+--------+--------+ | Screw Precept Poly 5.5x50mm - | Screw | | NUVASIVE - | | | [id number] | | [id number]: Qty: 2 | | | NVSV | | | 0A / / | | on 01/26/2019 by Crow Bates | | | | | | | | MD [place] | | | | | | | + +--------+--------+ +--------+--------+--------+ | Screw Polyax Precept 6.5x50 - | Screw | | NUVASIVE - | | | [id number] | | [id number]: Qty: 2 | | | NVSV | | | 0A / / | | on 01/26/2019 by Crow Bates | | | | | | | | MD [place] | | | | | | | + +--------+--------+ +--------+--------+--------+ | Screw Polyax Prcpt 7.5x50mm - | Screw | | NUVASIVE - | | | [id number] | | [id number]: Qty: 4 | | | NVSV | | | 0A / / | | on 01/26/2019 by Crow Bates | | | | | | | | AMD | | | | | | | + +--------+--------+ +--------+--------+--------+ | [facility]10 15cc - | | N/A: | [employer] - | | 02/05/ | [id number] | | [id number]: Qty: 1 | | Back | MEDT | | 3 | | | on 01/26/2019 by Crow Bates | | | | | | /[id number] | | MD [place] | | | | | | 6-023 | | | | | | | | / | + +--------+--------+ +--------+--------+--------+ Procedures + +--------+ + + + | [...] | + +--------+ + + + | ANE AIRWAY NOTE | Routin | 01/26/2019 | | Results for this | | | e | 1243 PDT | | procedure are in the [...] | | Cages | +---+--------+ + +--------+ + + + | CULTURE, MRSA | Routin | [...] | + +--------+ + + + | IMAGING REPORT - | | 01/21/2019 | | Results for this | | EXTERNAL SCAN | | 0000 PDT | | procedure are in the | | | | | | results section. | + +--------+ + + + | IMAGING REPORT - | | 01/21/2019 | | Results for this | | EXTERNAL SCAN | | 0000 PDT | | procedure are in the | | | | | | results section. | + +--------+ + + + | ECG - EXTERNAL SCAN | | 01/13/2019 | | Results for this | | | | 0000 PDT | | procedure are in the | | | | | | results section. | + +--------+ + + + | ECG - EXTERNAL SCAN | [...] section. | + +--------+ + + + from Last 3 Months Results CBC with Differential (01/30/2019 0642) + + + + + | Component [...] + | [facility] | [address] | [place], [place] | [phone] | | [facility] | | [address] | | | - LABORATORY | | | | + + + + + Comprehensive Metabolic Panel (01/30/2019641) [...] >=60 mL/min/1.73m2 | [facility] | | [place] | | | [facility] | | [...] [facility] | | | | | [facility] | | | | | CENTER - | | | | | LABORATORY | + +---------+ + + + + | Specimen | + + | Blood | + + + + + + + | Performing | Address | City/State/Zipcode | Phone Number | | Organization | | | | + + + + + | [facility] | [address] | [place] | [phone] | | [facility] | | [address] | | | - LABORATORY | | | | + + + + + Extra Lavender Top Tube (01/27/2019622) + +-------+ + + | Component | Value | Ref Range | Performed At | + +-------+ + + | Extra Lavender Top | Done | | [facility] | | Tube | | | [facility] | | [...] + | [facility] | [address] | [place] | [phone] | | [facility] | | [address] | | | - LABORATORY | | | | + + + + + Basic Metabolic Panel (01/27/2019622) + +---------+ + + | Component | Value | Ref Range | Performed At | + +---------+ + + | Na | 139 | 136 - 145 mmol/L | [facility] | | | | | [facility] | | | | | CENTER - | | | | | LABORATORY | + +---------+ + + | K | 4.0 | 3.4 - 5.1 mmol/L | [facility] | | | | | [facility] | | | | | CENTER [...] [facility] | | | | | [facility] | | | | | CENTER - | | | | | LABORATORY | + +---------+ + + | eGFR if not | >60 | >=60 mL/min/1.73m2 | [facility] | | [place] | | | [facility] | | | | | CENTER - | | | | | LABORATORY | + +---------+ + + | Ca | 9.1 | 8.7 - 10.4 mg/dL | [facility] | | | | | [facility] | | | | | CENTER - | | | | | LABORATORY | + +---------+ + + | BUN/Creatinine Ratio | 15.3 | | [facility] | | | [...] [address] | [place] | [phone] | | [facility] | | [address] | | | - LABORATORY | | | | + + + + + XR Lumbar Spine 2 or 3 Vw (01/26/2019 9137) + + + | Narrative | Performed At | + + + | CLINICAL INFORMATION: sp lumbar surgery with hardware.. | [facility] | | COMPARISON: MRI dated 01/07/2018 and radiographs 08/12/2018. | | | FINDINGS: AP and lateral views of the lumbosacral spine. | | | Posterior pedicle screw and bjorn fusion changes at L2-S1 with interbody | [...] the lumbosacral spine. Posterior pedicle screw and bjorn fusion | | changes at L2-S1 with [...] | | + +---------+ + + FL C-Kendell Stats No Charge (01/26/2019 161) + + + | Narrative | Performed [...] | | | + +---------+ + + Anesthesia Airway Note (01/26/2019 1243) + + + | Narrative | Performed At | + + + | Shell Wheeler MD 01/26/2019 12:44 Anesthesia Airway | | | Placement 01/26/2019 12:30 Preprocedure check: patient identified, | | | oxygen, airway assessed, patient reassessment prior to induction, | | | airway equipment checked and suction Successful technique: videoscope | | | Laryngoscope blade size: 3 Airway grade: 1 (Full view of | | | glottis) Other equipment: stylette Attempts: 1 Airway type: | | | endotracheal Size: 6.5 Cuffed: cuffed Tube depth: 22 cm Tube | | | secured with: adhesive tape Trauma: none Tube placement | | | verification: bilateral chest rise and carbon dioxide detection | | | Performing provider: SHELL WHEELER Electronically Signed by: | | | Shell Wheeler, | | | MD Petty | | | date/time: 01/26/2019 12:43 | | + + + + + | Procedure Note | + + | Shell Wheeler MD - 01/26/2019 1243 PDT Anesthesia Airway Placement01/26/2019 | | 12:30Preprocedure check: patient identified, oxygen, airway assessed, patient | | reassessment prior to induction, airway equipment checked and suctionSuccessful | | technique: videoscopeLaryngoscope blade size: 3 Airway grade: 1 (Full view of | | glottis)Other equipment: styletteAttempts: 1Airway type: endotrachealSize: 6.5Cuffed: | | cuffedTube depth: 22 cmTube secured with: adhesive tapeTrauma: noneTube placement | | verification: bilateral chest rise and carbon dioxide detectionPerforming provider: | | SHELL WHEELER WElectronically Signed by: MD Malinda Dudley | | date/time: 01/26/2019 12:43 | |Airway type: endotracheal | |Size: 6.5 | |Cuffed: cuffed | |Tube depth: 22 cm | |Tube secured with: adhesive tape | |Trauma: none | |Tube placement verification: bilateral chest rise and carbon dioxide detection | |Performing provider: SHELL WHEELER | | | | | |Electronically Signed by: MD Malinda Dudley date/time: 01/26 12:43 | | | + + Culture, MRSA (01/26/2019 1104) + + + + + | Component | Value | Ref Range | Performed At | + + + + + | Culture | Negative for MRSA by | | [facility] | | | chromogenic agar method | | [facility] | | | | | [place] - | | | | | LABORATORY | + + + + + + + | Specimen | + + | Tissue - Nares | + + + + + + + | Performing | Address | City/State/Zipcode | Phone Number | | Organization | | | | + + + + + | [facility] | [address] | [place] | [phone] | | [facility] | | [address] | | | - LABORATORY | | | | + + + + + XR Scoliosis Entire Spine 6+ Views (01/26/2019939) + + + | Narrative | Performed [...] | | + +---------+ + + XR Chest PA and Lateral (01/26/2019 0940) [...] | | + +---------+ + + XR Chest 2 Vws (01/21/2019899) + + [...] | | | + +---------+ + + IMAGING REPORT - EXTERNAL SCAN (01/21/2019)Only the most recent of 2 results within the period is included. + + + | Narrative | Performed At | + + + | Ordered by an | | | unspecified provider. | | + + + LABS - EXTERNAL SCAN (01/21/2019) + + + | Narrative | Performed At | + + + | Ordered by an | | | unspecified provider. | | + + + ECG - EXTERNAL SCAN (01/13/2019)Only the most recent of 2 results within the time period is included. + + + | Narrative | Performed At | + + + | Ordered by an | | | unspecified provider. | | + + + XR Cervical Spine 2 or 3 Views [...] | | | + +---------+ + + MRI Lumbar Spine wo Contrast (01/07/2019 1605) [...] | | | + +---------+ + + from Last 3 Months Insurance + +--------+ +--------+ +---------+ | Payer | Benefi | Subscriber | Type | Phone | Address | | | t Plan | ID | | | | | | / | | | | | | | Group | | | | | + +--------+ +--------+ +---------+ | MEDICARE | MEDICA | [id number] | Medica | [phone] | | | RE | | re | [phone] | | | | PART A | | | | | | | AND B | | | | | + +--------+ +--------+ +---------+ | | TRICAR | [id number] | Indemn | [phone] | | | E FOR | | ity | [phone] | | | | LIFE | | | | | + +--------+ +--------+ +---------+ + +--------+ +--------+ + + | Guarantor Name | Accoun | Relation to | Date | Phone | Billing Address | | | t Type | Patient | of | | | | | | | | | | + +--------+ +--------+ + + | ROD GRANADOS | Person | Self [birth year] | Home: | [address] | | | al/Fam | | 1940 | [phone] | [place] [address] | | | kiara | | | [phone] | | + +--------+ +--------+ + +
--- OUTSIDE RECORDS SUMMARY | ~2019-02-06 | XMS | Encounter Summary ---
Demographics + + + | Address | [address] | | | [place] [address] | + + + | Home Phone | | + + + | Preferred Language | Unknown | + + + | Marital Status | | + + + | Denominational Affiliation | 1077 | + + + | Race | Unknown | + + + | Ethnic Group | Unknown | + + + Author + + + | Author | [facility] | | | and [place] | + + + | Organization | [facility] | | | and [...] Team Providers + +------+ + | Care Metal Stamping Machine Operator Name | Role | Phone [...] | [address] [place] | ([facility]) (Primary Dx); | | | | [address] | [address] [place], [place] | Lumbar | | | | [place], [place] | [address] | radiculopathy; | | | | [address] | | Bilateral lumbar | | | | [phone] | | radiculopathy; S/P | | | [...] [place] | | | | | | [address] | | | | | | | | +--------+---------+ + + + | 04/22/ | Office | Neurosurgery | Crow Bates MD | | | 2018 | Visit | | [address] [place] | | | | | | [address] [place] | | | | | | [address] | | | | | | | [...]
--- OUTSIDE RECORDS SUMMARY | ~2019-02-06 | XMS | Encounter Summary ---
Demographics + + + | Address | [address] | | | [place] [address] | + + + | Home Phone | | + + + | Preferred Language | Unknown | + + + | Marital Status | | + + + | Pentecostal Affiliation | 1077 | + + + | Race | Unknown | + + + | Ethnic Group | Unknown | + + + Author + + + | Author | [facility] | | | and [place] | + + + | Organization | [facility] | | | and [...] Team Providers + +------+ + | Care Statistical Clerk Advertising Name | Role | Phone | + +------+ + | Vi Johnson | PCP | | | PA | | | + +------+ + Reason for Visit + + + | Reason | Comments | + + + | Procedure | Reminder | + + + Encounter Details +--------+ + + + + | Date | Type | Department | Care Team | Description | +--------+ + + + + | 01/22/ | Telephone | [facility] [place] | Crow Bates MD | Procedure (Reminder) | | 2019 | | NEUROSURGERY [address] | [address] [place] | | | | | [address] | [address] [place], [place] | | | | | [place], [place] | [address] | | | | | [address] | | | | | | [phone] | | | +--------+ + + + [...] [place] | | | | | | [address] | | | | | | | | +--------+---------+ + + + | 04/22/ | Office | Neurosurgery | Crow Bates MD | | | 2018 | Visit | | [address] [place] | | | | | | [address] [place] | | | | | | [address] | | | | | | | | +--------+---------+ + + + as of this encounter Visit Diagnoses Not on filein this encounter"
--- OUTSIDE RECORDS SUMMARY | ~2019-02-06 | XMS | Encounter Summary ---
Demographics + + + | Address | [address] | | | [place] [address] | + + + | Home Phone | | + + + | Preferred Language | Unknown | + + + | Marital Status | | + + + | Voodoo Affiliation | 1077 | + + + | Race | Unknown | + + + | Ethnic Group | Unknown | + + + Author + + + | Author | [facility] | | | and [place] | + + + | Organization | [facility] | | | and [...] Team Providers + +------+ + | Care Pharmacy Intake Technician Name | Role | Phone | + +------+ + | Vi Johnson | PCP | | | PA | | | + +------+ + Reason for Visit + + + | Reason | Comments | + + + | Pain Management | | + + + Encounter Details +--------+ + + + + | Date | Type | Department | Care Team | Description | +--------+ + + + + | 01/09/ | Documentati | [facility] [place] | Crow Bates MD | Pain Management | | 2019 | on | NEUROSURGERY [address] | [address] | | | | | [address] | [address] [place] | | | | | [place], [place] | [address] | | | | | [address] | | | | | | [phone] | | | +--------+ + + + [...] + + + as of this encounter Progress Notes Torrie Wheeler RN - 01/09/2019 1008 PSTFormatting of this note may be different from the original. Discharged 01/30/19 Outpatient Morphine Equivalent Daily Dose (MEDD) 01/30/19 and after 45-90 mg MEDD Order Name Dose Route Frequency Maximum MEDD oxyCODONE (ROXICODONE) 5 mg tablet 5-10 mg Oral EVERY 4 HOURS PRN 45-90 mg MEDD Total Potential Daily Morphine Equivalence 45-90 mg MEDD Torrie Wheeler RN - 01/09/2019 1008 PSTPMP checked r/t 01/26/19 L2-3, L3-4 and L4-5 Later al Anterior Interbody Fusion with L5-S1 Tranforaminal Lumbar Interbody Fusion Preop MEDD= 0 Georgina Torres, Building Insulation Supervisor - 01/09/2019 1008 PSTFormatting of this note may be differ ent from the original. Outpatient Morphine Equivalent Daily Dose (MEDD) None PEG Pain screening tool (Pain, enjoyment, general activity) Total score: 1.33 The following information was obtained from [email or web address]/login on 01/09/19. The following information was obtained from [email or web address]://[employer].gov/myAccess/saw/select .do on 01/09/19. [facility] was checked on 01/09/19 and no medications have been dispensed in the last 3 months. in this encounter Plan of Treatment +--------+---------+ + + + | Date | Type | Specialty | Care Team | Description | +--------+---------+ + + + | 02/23/ | Office | Neurosurgery | Jose Rosa | | | 2018 | Visit | | KATHERIN Torres [address] | | | | | | [address] [facility] [address] | | | | | | [place] | | | | | | [address] | | | | | | | | +--------+---------+ + + + | 04/22/ | Office | Neurosurgery | Crow Bates MD | | | 2019 | Visit | | [address] [facility] | | | | | | [address] [place] | | | | | | [phone] | | | | | | | | +--------+---------+ + + + as of this encounter Visit Diagnoses Not on filein this encounter"
--- OUTSIDE RECORDS SUMMARY | ~2019-02-06 | XMS | Encounter Summary ---
Demographics + + + | Address | [address] | | | [place] [address] | + + + | Home Phone | | + + + | Preferred Language | Unknown | + + + | Marital Status | | + + + | Advent Affiliation | 1077 | + + + | Race | Unknown | + + + | Ethnic Group | Unknown | + + + Author + + + | Author | [facility] | | | and [place] | + + + | Organization | [facility] | | | and [place] | [...] Team Providers + +------+ + | Care Shot Fireman Name | Role | Phone | + [...] [place] | | | | | | [address] | | | | | | [phone] | | | +--------+ + + + [...] [place] | | | | | | [address] | | | | | | | | +--------+---------+ + + + | 04/22/ | Office | Neurosurgery | Crow Bates MD | | | 2019 | Visit | | [address] | | | | | | [address] [place] | | | | | | [address] | | | | | | | | +--------+---------+ + + + as of this encounter Visit Diagnoses Not on filein this encounter"
--- OUTSIDE RECORDS SUMMARY | ~2019-02-06 | XMS | Encounter Summary ---
Demographics + + + | Address | [address] | | | [place] [address] | + + + | Home Phone | | + + + | Preferred Language | Unknown | + + + | Marital Status | | + + + | Protestant Affiliation | 1077 | + + + | Race | Unknown | + + + | Ethnic Group | Unknown | + + + Author + + + | Author | [facility] | | | and [place] | + + + | Organization | [facility] | | | and [place] | [...] Team Providers + +------+ + | Care Navy Seal Name | Role | Phone | + [...] [place]ha [place] | | | | | [phone] | [place] [address] | | +--------+ + + + + [...] [address] | | | | | | [place] | | | | | | [address] | | | | | | | | +--------+---------+ + + + | 04/22/ | Office | Neurosurgery | Crow Bates MD | | | 2018 | Visit | | [address] [place] | | | | | | [address] [place] | | | | | | [address] | | | | | | | [...]
--- OUTSIDE RECORDS SUMMARY | ~2019-02-06 | XMS | Encounter Summary ---
Demographics + + + | Address | [address] | | | [place] [address] | + + + | Home Phone | | + + + | Preferred Language | Unknown | + + + | Marital Status | | + + + | Spiritism Affiliation | 1077 | + + + | Race | Unknown | + + + | Ethnic Group | Unknown | + + + Author + + + | Author | [facility] | | | and [place] | + + + | Organization | [facility] | | | and [...] Team Providers + +------+ + | Care Software Development Specialist Name | Role | Phone | + [...] 50 | [address] [place], [place] | Status post lumbar | | | | [place], [place] | [address] | spinal fusion | | | | [address] | | | | | | [phone] | | | +--------+ + + + [...] [place] | | | | | | [address] | | | | | | | | +--------+---------+ + + + | 04/22/ | Office | Neurosurgery | Crow Bates MD | | | 2018 | Visit | | [address] [place] | | | | | | [address] [place] | | | | | | [address] | | | | | | | | +--------+---------+ + + + + +--------+ + + | Name | Priori | Associated Diagnoses | Order Schedule | | | ty | | | + +--------+ + + | XR Lumbar Spine 2 or 3 Vw | Routin | Lumbar | Expected: 02/23/2019 | | | e | radiculopathy | (Approximate), | | | | Status post lumbar | Expires: 01/20/2020 | | | | spinal fusion | | + +--------+ + + as of this encounter Visit Diagnoses + + | Diagnosis | + + | Lumbar radiculopathy - Primary | + + | Thoracic or lumbosacral neuritis or radiculitis, unspecified | + + | Status post lumbar spinal fusion | + + | Arthrodesis status | + +"
--- OUTSIDE RECORDS SUMMARY | ~2019-02-06 | XMS | Encounter Summary ---
Demographics + + + | Address | [address] | | | [place] [address] | + + + | Home Phone | | + + + | Preferred Language | Unknown | + + + | Marital Status | | + + + | Episcopalian Affiliation | 1077 | + + + | Race | Unknown | + + + | Ethnic Group | Unknown | + + + Author + + + | Author | [facility] | | | and [place] | + + + | Organization | [facility] | | | and [place] [...] Team Providers + +------+ + | Care Project Construction Manager Name | Role | Phone | [...] [place], [place] | | | | | [place], [place] | [address] | | | | | [address] | | | | | | [phone] | | | +--------+ + + + [...] [place] | | | | | | [address] | | | | | | | | +--------+---------+ + + + | 04/22/ | Office | Neurosurgery | Crow Bates MD | | | 2018 | Visit | | [address] [place] | | | | | | [address] [place] [place] | | | | | | [address] | | | | | | | | +--------+---------+ + + + as of this encounter Visit Diagnoses Not on filein this encounter"
--- OUTSIDE RECORDS SUMMARY | ~2019-02-06 | XMS | Encounter Summary ---
Demographics + + + | Address | [address] | | | [place] [address] | + + + | Home Phone | | + + + | Preferred Language | Unknown | + + + | Marital Status | | + + + | Sikhism Affiliation | 1077 | + + + | Race | Unknown | + + + | Ethnic Group | Unknown | + + + Author + + + | Author | [facility] | | | and [place] | + + + | Organization | [facility] [...] Team Providers + +------+ + | Care Color Grinder Name | Role | Phone | + [...] [place] | Scoliosis, | | | | [place], [place] | [address] | unspecified | | | | [address] | | scoliosis type, | | | | [phone] | | unspecified spinal | | | [...] [place] | | | | | | [address] | | | | | | | | +--------+---------+ + + + | 04/22/ | Office | Neurosurgery | Crow Bates MD | | | 2018 | Visit | | [address] [place] | | | | | | [address] | | | | | | [address] | | | | | | | [...]
--- OUTSIDE RECORDS SUMMARY | ~2019-02-06 | XMS | Encounter Summary ---
Demographics + + + | Address | [address] | | | [place] [address] | + + + | Home Phone [...] + | Organization | [facility] [...] Team Providers + +------+ + | Care Rehabilitation Construction Specialist Name | Role | Phone | [...] [place] | Scoliosis, | | | | [place], [place] | [address] | unspecified | | | | [address] | | scoliosis type, | | | | [phone] | | unspecified spinal | | | [...] [place] | | | | | | [address] | | | | | | | | +--------+---------+ + + + | 04/22/ | Office | Neurosurgery | Crow Bates MD | | | 2018 | Visit | | [address] [place] | | | | | | [address] | | | | | | [address] | | | | | | | | +--------+---------+ + + + as of this encounter Visit Diagnoses + + | Diagnosis | + + | Lumbar radiculopathy - Primary | + + | Thoracic or lumbosacral neuritis or radiculitis, unspecified | + + | Scoliosis, unspecified scoliosis type, unspecified spinal region | + + | Lumbar spondylosis | + + | Lumbosacral spondylosis without myelopathy | + + | Neural foraminal stenosis of lumbar spine | + + | Spinal stenosis, lumbar region, without neurogenic claudication | + + | Neurogenic claudication | + + | Spinal stenosis, lumbar region, with neurogenic claudication | + +"
--- OUTSIDE RECORDS SUMMARY | ~2019-02-06 | XMS | Encounter Summary ---
Demographics + + + | Address | [address] | | | [place] [address] | + + + | Home Phone | | + + + | Preferred Language | Unknown | + + + | Marital Status | | + + + | Synagogue Affiliation | 1077 | + + + | Race | Unknown | + + + | Ethnic Group | Unknown | + + + Author + + + | Author | [facility] | | | and [place] | + + + | Organization | [facility] | | | and [place] [...] Team Providers + +------+ + | Care Detective Captain Name | Role | Phone | + [...] | | | | unspecified | | [address] Phone: | | | | | scoliosis | | [phone] | | | | | type, | | Fax: | | | | | unspecified | | [phone] | | | | | spinal | [...] | | | | | | | [place] SPINAL | | | | | | | FUSION,ANT,E | | | | | | | A ADNL LEVEL | | | | | | | [place] SPINE | | | | | | | FUSN,POST | | | | | | | TECH,EA | | | | | | | ADDNL SGMT | | | | | | | [place] ARTHDSIS | | | | | | [...] | | | | | | SEG [place] INSJ | | | | | | | BIOMCHN DEV | | | | | | | | | | | | | | INTERVERTEBR | | | | | | | AL DSC SPC | | | | | | | W/ARTHRD [place] | | | | | | | [...] | | | | | | SEG [place] | | | | | | | LAMINEC/FACE | | | | | | | TECT/FORAMIN | | | | | | | ,EACH ADDNL | | | +--------+--------+ + + + + Encounter Details +--------+ + + + + | Date | Type | Department | Care Team | Description | +--------+ + + + + | 01/26/ | Anesthesia | [facility] | Shell Wheeler MD | | | 2019 | Event | MED CTR OR INTRA OP | [address] | | | | | [address] | [place] | | | | | [place] | [address] | | | | | [address] | | | | | | [phone] | | | +--------+ + + + + Anesthesia Record + + + + + | Procedure Name | Responsible | Anesthesia Start | Anesthesia Stop Time | | | Anesthesiologist | Time | | + + + + + | L2-3, L3-4 and L4-5 | Shell Wheeler MD | 01/26/19 1223 | 01/26/19 1625 | | Lateral Anterior | | | | | Interbody Fusion | | | | | with L5-S1 | | | | | Tranforaminal Lumbar | | | | | Interbody Fusion | | | | | (N/A Back) | | | | + + + + + +----+---+ + + | Da | T | Event | Comment | | te | i | | | | | m | | | | | e | | | +----+---+ + + | 03 | 1 | An Checkout | Pre-use anesthesia machine/equipment checkout. | | /2 | 2 | | | | 5/ | 2 | | | | 20 | 3 | | | | 19 | | | | +----+---+ + + | | 1 | An Start | | | | 2 | Data | | | | 2 | | | | | 3 | | | +----+---+ + + | | 1 | An Start | Reassessment prior to anesthesia induction/procedure. | | | 2 | | | | | 2 | | | | | 3 | | | +----+---+ + + | | 1 | Antibiotic | | | | 2 | Given | | | | 2 | | | | | 3 | | | +----+---+ + + | | 1 | Preoxygenat | | | | 2 | ed | | | | 2 | | | | | 5 | | | +----+---+ + + | | 1 | An | | | | 2 | Induction | | | | 2 | | | | | 8 | | | +----+---+ + + | | 1 | An | | | | 2 | Intubation | | | | 3 | | | | | 0 | | | +----+---+ + + | | 1 | [place] | | | | 2 | 43-degrees | | | | 4 | | | | | 7 | | | +----+---+ + + | | 1 | Pre-Procedu | | | | 2 | ral Timeout | | | | 4 | Completed | | | | 7 | | | +----+---+ + + | | 1 | First | | | | 2 | Inc/Proc St | | | | 5 | | | | | 0 | | | +----+---+ + + | | 1 | [place] off | | | | 6 | | | | | 0 | | | | | 8 | | | +----+---+ + + | | 1 | Breathing | | | | 6 | Spontaneous | | | | 1 | ly | | | | 1 | | | +----+---+ + + | | 1 | Oropharynx | | | | 6 | Suctioned | | | | 1 | | | | | 8 | | | +----+---+ + + | | 1 | Moving | | | | 6 | Purposefull | | | | 2 | y | | | | 1 | | | +----+---+ + + | | 1 | Extubated | | | | 6 | Awake | | | | 2 | | | | | 1 | | | +----+---+ + + | | 1 | an stop | | | | 6 | data | | | | 2 | | | | | 1 | | | +----+---+ + + | | 1 | An Stop | Patient handed off to recovery nurse. | | | 2 | | | | | 5 | | | +----+---+ + + +------+ | Meds | +------+ + + + | Name | Total | + + + | propofol (DIPRIVAN) injection | 150 mg | | (bolus) (20 mL) | | + + + | ondansetron | 4 mg | + + + | dexamethasone | 10 mg | + + + | HYDROmorphone | 2 mg | + + + | cisatracurium | 10 mg | + + + | phenylephrine (Injection) | 500 mcg | + + + | neostigmine | 1 mg | + + + | glycopyrrolate | 0.4 mg | + + + | ceFAZolin (ANCEF, KEFZOL) 100 | 2 g | | mg/mL IV syringe 2 g | | + + + | magnesium sulfate | 2 g | + + + | succinylcholine | 100 mg | + + + | lidocaine 1% | 50 mg | + + + | Phenylephrine 10mg/mL VIAL | 2,346.24 mcg | + + + | lactated ringers (LR) infusion | 1,800 mL | + + + + + | Name | + + | N2O Flow Rate (L/Min) | + + | O2 Flow Rate (L/Min) | + + | Insp O2 | + + | Exp SEV | + + | Air Flow Rate (L/Min) | + + + + | No blood administrations on file. | + + +--------+ + + + | Type | Details | Placement | Removal | +--------+ + + + | Periph | 01/26/19; 1045; Right; Forearm; | 01/26/19 1045 by | 01/30/19 1431 by | | eral | [id number] catheter system; | Brissa Hall, | Linda Lee, | | IV | 18 gauge; 0; distraction, | RN | RN | | | intradermal injection; no longer | | | | | indicated; short term use; | | | | | 01/30/19; 1431 | | | +--------+ + + + | Airway | Placement Date: 01/26/19; | 01/26/19 1230 by | 01/26/19 1621 by | | | Placement Time: 1230 (created via | Shell Wheeler MD | Shell Wheeler MD | | | procedure documentation); Airway | | | | | Grade: 1; Successful Technique: | | | | | video scope; Laryngoscope Blade | | | | | Size: 3; Attempts: 1; Airway | | | | | Type: endotracheal; Size: 6.5; | | | | | Airway Tube Secured At: 22; | | | | | Trauma: none; Other Equipment: | | | | | stylette; Placement Check: | | | | | exhaled CO2 detection device, | | | | | bilateral chest rise; Removal | | | | | Date: 01/26/19; Removal Time: | | | | | 1621 | | | +--------+ + + + | Wound | 01/26/19; 1334; Incision; Right; | 01/26/19 1334 by | 01/30/19 1537 by | | | flank; Healing; 01/30/19; 1537 | Josue Stiles RN | Linda Lee, | | | | | RN | +--------+ + + + | Wound | 01/26/19; 1346; Incision; | 01/26/19 1346 by | 01/30/19 1537 by | | | Bilateral; back; Healing; | Josue Stiles RN | Linda Lee, | | | 01/30/19; 1537 | | RN | +--------+ + + + | Drain/ | 01/26/19; 1615; #1; collapsible | 01/26/19 1615 by | 01/29/19 0930 by | | Device | closed device; 01/29/19; 929 | Steven Jaimes RN | Alicia Cerrato, | | Site | | | RN | +--------+ + + + in this encounter Social History + + + +--------+ + [...] | 02/23/ | Office | Neurosurgery | M[facility] | | | 2018 | Visit | | KATHERIN Torres [address] | | | | [address] [place] [address] | | | | | | [place] | | | | | | [address] | | | | | | | | +--------+---------+ + + + | 04/22/ | Office | Neurosurgery | Crow Bates MD | | | 2018 | Visit | | [address] [place] | | | | | | [address] [place] | | | | | | [address] | | | | | | | | +--------+---------+ + + + as of this encounter Results Anesthesia Airway Note (01/26/2019 1243) + + [...] Electronically Signed by: | | | Shell Wheeler | | | ESig | | | date/time: 01/26/2019 12:43 | [...] 01/26 12:43 | | | + + in this encounter Visit Diagnoses Not on filein this encounter Administered Medications + +--------+ +------+------+------+ | Medication Order | MAR | Action | Dose | Rate | Site | | | Action | Date | | | | + +--------+ +------+------+------+ | ceFAZolin (ANCEF, KEFZOL) 100 | Given | | 2 g | | | | mg/mL IV syringe 2 g 2 g, | | 9 12:23 | | | | | Intravenous, Administer over 30 | | PDT | | | | | Minutes, Prior to Incision, | | | | | | | Starting 01/26/19 at 0357, For | | | | | | | 1 dose, Administer within 1 hour | | | | | | | of surgical incision. | | | | | | + +--------+ +------+------+------+ +---+---+ | | | +---+---+ + +-------+ +------+---+---+ | cisatracurium (PF) (NIMBEX) | Given | | 1 mg | | | | injection Intravenous, PRN, | | 9 12:24 | | | | | Ventilator Dyssynchrony, Starting | | PDT | | | | | 01/26/19 at 1224, Anesthesia | | | | | | | Intra-op | | | | | | + +-------+ +------+---+---+ +-------+ +------+---+---+ | Given | | 9 mg | | | | | 9 13:48 | | | | | | PDT | | | | +-------+ +------+---+---+ +---+---+ | | | +---+---+ + +-------+ +-------+---+---+ | dexamethasone (PF) 10 mg/mL | Given | | 10 mg | | | | injection Intravenous, PRN, | | 9 12:42 | | | | | Starting 01/26/19 at 1242, | | PDT | | | | | Anesthesia Intra-op | | | | | | + +-------+ +-------+---+---+ +---+---+ | | | +---+---+ + +-------+ +--------+---+---+ | glycopyrrolate (ROBINUL) | Given | | 0.2 mg | | | | injection Intravenous, PRN, | | 9 12:59 | | | | | Secretions, Starting Sat01/26/19 | | PDT | | | | | at 1259, Anesthesia Intra-op | | | | | | + +-------+ +--------+---+---+ +-------+ +--------+---+---+ | Given | | 0.2 mg | | | | | 9 16:02 | | | | | | PDT | | | | +-------+ +--------+---+---+ +---+---+ | | | +---+---+ + +-------+ +------+---+---+ | HYDROmorphone (DILAUDID) 2 | Given | | 1 mg | | | | mg/mL injection Intravenous, | | 9 12:41 | | | | | PRN, Pain, Starting Sat01/26/19 | | PDT | | | | | at 1241, Anesthesia Intra-op | | | | | | + +-------+ +------+---+---+ +-------+ +------+---+---+ | Given | | 1 mg | | | | | 9 15:26 | | | | | | PDT [...] | | +---+---+ + +-------+ +-------+---+---+ | lidocaine (PF) 1% injection | Given | | 50 mg | | | | Infiltration, PRN, Starting Mon | | 9 12:28 | | | | | 01/26/19 at 1228, Anesthesia | | PDT | | | | | Intra-op | | | | | | + +-------+ +-------+---+---+ +---+---+ | | | +---+---+ + +-------+ +-----+---+---+ | magnesium sulfate 500 mg/mL | Given | | 2 g | | | | injection Intravenous, PRN, | | 9 12:41 | | | | | Starting 01/26/19 at 1241, | | PDT | | | | | Anesthesia Intra-op | | | | | | + +-------+ +-----+---+---+ +---+---+ | | | +---+---+ + +-------+ +------+---+---+ | neostigmine (PROSTIGMIN) 1 | Given | | 1 mg | | | | mg/mL injection Intravenous, | | 9 16:02 | | | | | PRN, Starting 01/26/19 at | | PDT | | | | | 1602, Anesthesia Intra-op | | | | | | + +-------+ +------+---+---+ +---+---+ | | | +---+---+ + +-------+ +------+---+---+ | ondansetron (ZOFRAN) injection | Given | | 4 mg | | | | Intravenous, PRN, Nausea, | | 9 16:01 | | | | | Vomiting, Starting 01/26/19 at | | PDT | | | | | 1601, Anesthesia Intra-op | | | | | | + +-------+ +------+---+---+ +---+---+ | | | +---+---+ + +---------+ + +-------+---+ | phenylephrine (KELLEY-SYNEPHRINE) | New Bag | | 0.4 | 0.2 | | | 10 mg/mL injection Intravenous, | | 9 14:49 | mcg/kg/m | mL/hr | | | CONTINUOUS PRN, Starting Mon | | PDT | in | | | | 01/26/19 at 1449, Anesthesia | | | | | | | Intra-op | | | | | | + +---------+ + +-------+---+ +---+---+ | | | +---+---+ + +-------+ +---------+---+---+ | phenylephrine (KELLEY-SYNEPHRINE) | Given | | 100 mcg | | | | 100 mcg/mL injection | | 9 14:02 | | | | | Intravenous, PRN, Starting Mon | | PDT | | | | | 01/26/19 at 1402, Anesthesia | | | | | | | Intra-op | | | | | | + +-------+ +---------+---+---+ +-------+ +---------+---+---+ | Given | | 200 mcg | | | | | 9 14:32 | | | | | | PDT | | | | +-------+ +---------+---+---+ | Given | | 200 mcg | | | | | 9 14:51 | | | | | | PDT | | | | +-------+ +---------+---+---+ +---+---+ | | | +---+---+ + +-------+ +--------+---+---+ | propofol (DIPRIVAN) injection | Given | | 150 mg | | | | Intravenous, PRN, Starting Mon | | 9 12:28 | | | | | 01/26/19 at 1228, Anesthesia | | PDT | | | | | Intra-op | | | | | | + +-------+ +--------+---+---+ +---+---+ | | | +---+---+ + +-------+ +--------+---+---+ | succinylcholine (ANECTINE) | Given | | 100 mg | | | | injection Intravenous, PRN, | | 9 12:28 | | | | | Starting 01/26/19 at 1228, | | PDT | | | | | Anesthesia Intra-op | | | | | | + +-------+ +--------+---+---+ +---+---+ | | | +---+---+ in this encounter"
--- OUTSIDE RECORDS SUMMARY | ~2019-02-06 | XMS | Encounter Summary ---
Demographics + + + | Address | [address] | | | [place] [address] | + + + | Home Phone | | + + + | Preferred Language | Unknown | + + + | Marital Status | | + + + | Roman Catholic Affiliation | 1077 | + + + | Race | Unknown | + + + | Ethnic Group | Unknown | + + + Author + + + | Author | [facility] | | | and [place] | + + + | Organization | [facility] | | | and [...] Team Providers + +------+ + | Care Tank Farm Attendant Name | Role | Phone | + [...] | | | | unspecified | | [address] Phone: | | | | | scoliosis | | [phone] | | | | | type, | | Fax: | | | | | unspecified | | [phone] | | | | | spinal | [...] | | | | | | [place] SPINAL | | | | | | | FUSION,ANT,E | | | | | | | A ADNL LEVEL | | | | | | | AL SPINE | | | | | | | FUSN,POST | | | | | | | TECH,EA | | | | | | | ADDNL SGMT | | | | | | | [place] ARTHDSIS | | | | | | [...] | | | | | | SEG AL INSJ | | | | | | | BIOMCHN DEV | | | | | | | | | | | | | | INTERVERTEBR | | | | | | | AL DSC SPC | | | | | | | W/ARTHRD AL | | | | | | | [...] | | | | | | SEG AL | | | | | | | LAMINEC/FACE | | | | | | | TECT/FORAMIN | | | | | | | ,EACH ADDNL | | | +--------+--------+ + + + + Encounter Details +--------+ + + + + | Date | Type | Department | Care Team | Description | +--------+ + + + + | 01/26/ | Hospital | [facility] | Crow Bates MD | Lumbar | | 2019 | Encounter | MED CTR XRAY [address] | [address] [facility] | radiculopathy; | | | | [facility] [place] | [address] | Scoliosis, | | | | [place] [address] | [address] | unspecified | | | | [phone] | | scoliosis type, | | | [...] + + + +---------+ + + | Gilbert-3 Fatty | Take 1,000 mg by | [...] [place] | | | | | | [address] | | | | | | | | +--------+---------+ + + + | 04/22/ | Office | Neurosurgery | Crow Bates MD | | | 2019 | Visit | | [address] [place] | | | | | | [address] [place] | | | | | | [address] | | | | | | | [...]
--- OUTSIDE RECORDS SUMMARY | ~2019-02-06 | XMS | Encounter Summary ---
Demographics + + + | Address | [address] | | | [place] [address] | + + + | Home Phone [...] + + | Organization | [facility] | | | and [...] Team Providers + +------+ + | Care Bag Liner Name | Role | Phone | [...] [place], [place] | | | | | [place], [place] | [address] | | | | | [address] | | | | | | [phone] | | | +--------+ + + + [...] [address] | | | | | | [place] | | | | | | [address] | | | | | | | | +--------+---------+ + + + | 04/22/ | Office | Neurosurgery | Crow Bates MD | | | 2018 | Visit | | [address] [place] | | | | | | [address] [place] | | | | | | [address] | | | | | | | | +--------+---------+ + + + as of this encounter Visit Diagnoses Not on filein this encounter"
--- OUTSIDE RECORDS SUMMARY | ~2019-02-06 | XMS | Encounter Summary ---
Demographics + + + | Address | [address] | | | [place] [address] | + + + | Home Phone | | + + + | Preferred Language | Unknown | + + + | Marital Status | | + + + | Denominational Affiliation | 1077 | + + + | Race | Unknown | + + + | Ethnic Group | Unknown | + + + Author + + + | Author | [facility] | | | and [place] | + + + | Organization | [facility] | | | and [place] [...] Team Providers + +------+ + | Care Replenishment Specialist Name | Role | Phone | + +------+ + | Vi Johnson | PCP | | | PA | | | + +------+ + Encounter Details +--------+ + + + + | Date | Type | Department | Care Team | Description | +--------+ + + + + | 01/12/ | Procedure | [facility] | | | | 2018 | Pass | MED CTR EXTERNAL | | | | | | IMAGING | | | | | | [phone] | | | +--------+ + + + [...] [place] | | | | | | [address] | | | | | | | | +--------+---------+ + + + | 04/22/ | Office | Neurosurgery | Crow Bates MD | | | 2019 | Visit | | [address] [facility] | | | | | | [address] [place] | | | | | | [address] | | | | | | | | +--------+---------+ + + + as of this encounter Visit Diagnoses Not on filein this encounter"
--- OUTSIDE RECORDS SUMMARY | ~2019-02-06 | XMS | Encounter Summary ---
Demographics + + + | Address | [address] | | | [place] [address] | + + + | Home Phone | | + + + | Preferred Language | Unknown | + + + | Marital Status | | + + + | Jehovah'S Witness Affiliation | 1077 | + + + | Race | Unknown | + + + | Ethnic Group | Unknown | + + + Author + + + | Author | [facility] | | | and [place] | + + + | Organization | [facility] | | | and [...] Team Providers + +------+ + | Care Architecture Professor Name | Role | Phone | + [...] [place] | | | | | [place], [place] | [address] | | | | | [address] | | | | | | [phone] | | | +--------+ + + + [...] Interbody Fusion Preop MEDD= 0 Georgina Torres, Demonstrator Sales - 01/09/2019 1008 PSTFormatting of this note may be differ ent from the original. Outpatient Morphine Equivalent Daily Dose (MEDD) None PEG Pain screening tool (Pain, enjoyment, general activity) Total score: 1.33 The following information was obtained from [email or web address]-Go [email or web address] on 01/09/19. The following information was obtained from [email or web address]://[email or web address]/myAccess/saw/select .do on 01/09/19. [facility] was checked on 01/09/19 and [...] | | | | | | [address] [facility] [address] | | | | | | [place] | | | | | | [address] | | | | | | | | +--------+---------+ + + + | 04/22/ | Office | Neurosurgery | Crow Bates MD | | | 2019 | Visit | | [address] [facility] | | | | | | [address] [place] | | | | | | [phone] | | | | | | | | +--------+---------+ + + + as of this encounter Visit Diagnoses Not on filein this encounter"
--- OUTSIDE RECORDS SUMMARY | ~2019-02-06 | XMS | Encounter Summary ---
Demographics + + + | Address | [address] | | | [place] [address] | + + + | Home Phone | | + + + | Preferred Language | Unknown | + + + | Marital Status | | + + + | Scientology Affiliation | 1077 | + + + | Race | Unknown | + + + | Ethnic Group | Unknown | + + + Author + + + | Author | [facility] | | | and [place] | + + + | Organization | [facility] | | | and [place] [...] Team Providers + +------+ + | Care Cash Analyst Name | Role | Phone | + +------+ + | Vi Johnson | PCP | | | PA | | | + +------+ + Encounter Details +--------+ + + + + | Date | Type | Department | Care Team | Description | +--------+ + + + + | 01/09/ | [facility] | [facility] | Freddy Og, | S/P cervical spinal | | 2019 | Encounter | MED CTR XRAY [address] | PA-C [address] | fusion; Cervical | | | | [place] | [address] [place] [address] [place] | myelopathy (HCC) | | | | [place] [address] | [place] [address] | | | | | [phone] | [phone] | | | | | | | [...] | + + +--------+---------+ + + | Hunt-3 Fatty | Take 1,000 mg by | [...] [place] | | | | | | [address] | | | | | | | | +--------+---------+ + + + | 04/22/ | Office | Neurosurgery | Crow Bates MD | | | 2018 | Visit | | [address] [place] | | | | | | [address] [place] | | | | | | [address] | | | | | | | [...]
--- OUTSIDE RECORDS SUMMARY | ~2019-02-06 | XMS | Encounter Summary ---
Demographics + + + | Address | [address] | | | [place] [address] | + + + | Home Phone | | + + + | Preferred Language | Unknown | + + + | Marital Status | | + + + | Jehovah'S Witness Affiliation | 1077 | + + + | Race | Unknown | + + + | Ethnic Group | Unknown | + + + Author + + + | Author | [facility] | | | and [place] | + + + | Organization | [facility] | | | and [place] | [...] Team Providers + +------+ + | Care Gas Examiner Name | Role | Phone | + [...] Status post lumbar | | | | [place], [place] | [address] | spinal fusion | | | | [address] | | | | | | [phone] | | | +--------+ + + + [...] [place] | | | | | | [address] | | | | | | | | +--------+---------+ + + + | 04/22/ | Office | Neurosurgery | Crow Bates MD | | | 2018 | Visit | | [address] [place] | | | | | | [address] [place] | | | | | | [address] | | | | | | | [...]
--- OUTSIDE RECORDS SUMMARY | ~2019-02-06 | XMS | Encounter Summary ---
Demographics + + + | Address | [address] | | | [place] [address] | + + + | Home Phone | | + + + | Preferred Language | Unknown | + + + | Marital Status | | + + + | Hoahaoism Affiliation | 1077 | + + + | Race | Unknown | + + + | Ethnic Group | Unknown | + + + Author + + + | Author | [facility] | | | and [place] | + + + | Organization | [facility] | | | and [place] [...] Team Providers + +------+ + | Care Lithographer Apprentice Name | Role | Phone | + [...] [place] | Scoliosis, | | | | [place] | [address] | unspecified | | | | [address] | | scoliosis type, | | | | [phone] | | unspecified spinal | | | [...] [place] | | | | | | [address] | | | | | | | | +--------+---------+ + + + | 04/22/ | Office | Neurosurgery | Crow Bates MD | | | 2018 | Visit | | [address] [place] | | | | | | [address] [place] | | | | | | [address] | | | | | | | [...]
--- OUTSIDE RECORDS SUMMARY | ~2019-02-06 | XMS | Clinical Summary ---
Demographics + + + | Address | [address] | | | [place] [address] | + + + | Home Phone | | + + + | Preferred Language | Unknown | + + + | Marital Status | | + + + | Anabaptist Affiliation | 1077 | + + + | Race | Unknown | + + + | Ethnic Group | Unknown | + + + Author + + + | Author | [facility] | | | and [place] | + + + | Organization | [facility] [...] Team Providers + +------+ + | Care Gastroenterologist Name | Role | Phone | + [...] | | + + + +---------+------+------+-------+ | [place]-3 Fatty | Take 1,000 mg by | [...] | | | Number: | | | [phone] | | | Date of | | [...] | + + + + | INFLUENZA, [id number], | 07/05/2017 | | | UNSPECIFIED | [...] [address] | | | | | | [place] | | | | | | [address] | | | | | | | | +--------+---------+ + + + | 04/22/ | Office | | Crow Bates MD | | | 2019 | Visit | | [address] [place] | | | | | | [address] [place] | | | | | | [address] | | | | | | | [...] | [facility] - | | 09/08/ | [id number] | | [id number]: Qty: 1 | | Neck | MEDT | | 2020 | | | on 12/23/2017 by Crow Bates | | | | | | /[id number] | | MD [place] | | | | | | 5071 | | | | | | | | / | + +--------+--------+ +--------+--------+--------+ | Cage Syeda Ptc [id number] - | Generi | N/A: | [facility] - | | 10/14/ | 000439 | | [id number]: Qty: 1 on | c | Spine | MEDT | | 2025 | 4 / | | 12/23/2017 by Crow Bates, | | Edilson | | | | /[id number] | | | | al | | | | | + +--------+--------+ +--------+--------+--------+ | Imp Spn Plt Ti Zevo 31mm 2lvl | Generi | N/A: | [facility] - | | | [id number] | | - [id number]: Qty: 1 | c | Spine | MEDT | | | 1 / / | | on 12/23/2017 by Crow Bates | | Edilson | | | | | | MD Roxanne | | al | | | | | + +--------+--------+ +--------+--------+--------+ | Tlif Oblique [id number] 12deg | Generi | | NUVASIVE - | | | [id number] | | - [id number]: Qty: | c | | NVSV | | | 2 / / | | 1 on 01/26/2019 by Crow Bates | | | | | | | | MD Roxanne | | | | | | | + +--------+--------+ +--------+--------+--------+ | Bjorn Ti Prebent Lordtc 120mm - | Generi | | NUVASIVE - | | | 717300 | | [id number]: Qty: 2 | c | | NVSV | | | 0 / / | | on 01/26/2019 by Crow Bates | | | | | | | | MD [place]oxanne | | | | | | | + +--------+--------+ +--------+--------+--------+ | Imp Spn Intbdy Xlw | Generi | N/A: | N[facility]AS[facility] - | | | 247588 | | [id number] - | c | Back | NVSV | | | 0 / / | | [id number]: Qty: 3 | | | | | | | | on 01/26/2019 by Crow Bates | | | | | | | | MD Roxanne | | | | | | | + +--------+--------+ +--------+--------+--------+ | Tlif Oblique [id number] 12deg | Generi | | NUVASIVE - | | | 129066 | | - [id number]: Qty: | c | | NVSV | | | 2 / / | | 1 on 01/26/2019 by Crow Bates | | | | | | | | MD Roxanne | | | | | | | + +--------+--------+ +--------+--------+--------+ | Algrft Bone Lord [id number] - | Graft | N/A: | [facility] - | | 08/23/ | [id number] | | [id number]: Qty: 1 on | | Spine | MEDT | | 2019 | | | 12/23/2017 by Crow Bates, | | Cervic | | | | /[id number] | | | | al | | | | 886 | | | | | | | | /[id number] | | | | | | | | 4225 | + +--------+--------+ +--------+--------+--------+ | Graft Infuse Bone Kit Xs - | Graft | N/A: | [facility] - | | 04/03/ | 568511 | | [id number]: Qty: 2 | | Back | MEDT | | 2019 | 0 / | | on 01/26/2019 by Crow Bates | | | | | | /[id number] | | MD Roxanne | | | | | | [id number] | + +--------+--------+ +--------+--------+--------+ | Graft Infuse Bone Kit Xxs - | Graft | N/A: | [facility] - | | 04/03/ | 080311 | | [id number]: Qty: 1 | | Back | MEDT | | 2019 | 0 / | | on 01/26/2019 by Crow Bates | | | | | | /[id number] | | MD Roxanne | | | | | | 18AAA | + +--------+--------+ +--------+--------+--------+ | Putty Emily 10cc Dbm - | Graft | N/A: | [facility] - | | 09/16/ | [id number] | | [id number]: Qty: 1 | | Back | MEDT [...] N/A: | [facility] - | | | 124184 | | - [id number]: Qty: 2 | | Spine | MEDT | | | 5 / / | | on 12/23/2017 by Crow Bates | | Cervic | | | | | | MD Roxanne | | al | | | | | + +--------+--------+ +--------+--------+--------+ | Screw D-Thrd Slf-Drl 3.5x15mm | Screw | N/A: | [facility] - | | | 347479 | | - [id number]: Qty: 4 | | Spine | MEDT | | | 5 / / | | on 12/23/2017 by Crow Bates | | Abebaic | | | | | | MD Roxanne | | al | | | | | + +--------+--------+ +--------+--------+--------+ | Screw Polyax Prcpt 9.5x45mm - | Screw | | NUVASIVE - | | | [id number] | | [id number]: Qty: 2 | | | NVSV | | | 5A / / | | on 01/26/2019 by Crow Bates | | | | | | | | MD Roxanne | | | | | | | + +--------+--------+ +--------+--------+--------+ | Screw Set - | Screw | | NUVASIVE - | | | 293975 | | [id number]: Qty: 10 | | | NVSV | | | 0 / / | | on 01/26/2019 by Crow Bates | | | | | | | | MD Roxanne | | | | | | | + +--------+--------+ +--------+--------+--------+ | Screw Precept Poly 5.5x50mm - | Screw | | NUVASIVE - | | | 862204 | | [id number]: Qty: 2 | | | NVSV | | | 0A / / | | on 01/26/2019 by Crow Bates | | | | | | | | MD Roxanne | | | | | | | + +--------+--------+ +--------+--------+--------+ | Screw Polyax Precept 6.5x50 - | Screw | | NUVASIVE - | | | [id number] | | [id number]: Qty: 2 | | | NVSV | | | 0A / / | | on 01/26/2019 by Crow Bates | | | | | | | | MD Roxanne | | | | | | | + +--------+--------+ +--------+--------+--------+ | Screw Polyax Prcpt 7.5x50mm - | Screw | | NUVASIVE - | | | 160365 | | [id number]: Qty: 4 | | | NVSV | | | 0A / / | | on 01/26/2019 by Crow Bates | | | | | | | | AMD | | | | | | | + +--------+--------+ +--------+--------+--------+ | [facility] - | | N/A: | [facility] - | | 02/05/ | 708802 | | [id number]: Qty: 1 | | Back | MEDT | | 3 | | | on 01/26/2019 by Crow Bates | | | | | | /[id number] | | MD Roxanne | | | [...] + | [facility] | [address] | [place], [place] | [phone] | | [facility] | | [address] | | | - LABORATORY | | [...] [facility] | | | | | [facility] | | | | | CENTER [...] [address] | [place] | [phone] | | [facility] | | [address] | | | - LABORATORY | | [...] [address] | [place] | [phone] | | [facility] | | [address] | | | - LABORATORY | | | | + + + + + Basic Metabolic Panel (01/27/2019622) + +---------+ + + | Component | Value | Ref Range | Performed At | + +---------+ + + | Na | 139 | 136 - 145 mmol/L | [facility] | | | | | [facility] | | | | | CENTER - | | | | | LABORATORY | + +---------+ + + | K | 4.0 | 3.4 - 5.1 mmol/L | [facility] | | | | | [facility] | | | | | CENTER [...] [facility] | | | | | [facility] | | | | | CENTER - | | | | | LABORATORY | + +---------+ + + | eGFR if not | >60 | >=60 mL/min/1.73m2 | [facility] | | [place] | | | [facility] | | | | | CENTER - | | | | | LABORATORY | + +---------+ + + | Ca | 9.1 | 8.7 - 10.4 mg/dL | [facility] | | | | | [facility] | | | | | [...] [address] | [place] | [phone] | | [facility] | | [address] | | | - LABORATORY | | | | + + + + + XR Lumbar Spine 2 or 3 Vw (01/26/2019 1647) + + + | Narrative | Performed [...] | | chromogenic agar method | | [facility] | | | | | [place] - | | | | | LABORATORY | + + + + + + + | Specimen | + + | Tissue - Nares | + + + + + + + | Performing | Address | City/State/Zipcode | Phone Number | | Organization | | | | + + + + + | [facility] | [address] | [place] | [phone] | | [facility] | | [address] | | | - LABORATORY | | [...] +--------+ +---------+ | MEDICARE | MEDICA | [id number] | Medica | [phone] | | | RE | | re | [phone] | | | | PART A | | | | | | | AND B | | | | | + +--------+ +--------+ +---------+ | | TRICAR | [id number] | Indemn | [phone] | | [...] | 1940 | [phone] | [place] [address] | | | kiara | | | [phone] | | + +--------+ +--------+ + +
--- OUTSIDE RECORDS SUMMARY | ~2019-02-06 | XMS | Encounter Summary ---
Demographics + + + | Address | [address] | | | [place] [address] | + + + | Home Phone | | + + + | Preferred Language | Unknown | + + + | Marital Status | | + + + | Faith Affiliation | 1077 | + + + | Race | Unknown | + + + | Ethnic Group | Unknown | + + + Author + + + | Author | [facility] | | | and [place] | + + + | Organization | [facility] | | | and [place] | + + + | Address | Unknown | + + + | Phone | Unavailable | + + + Support + + +---------+ + | Name | Relationship | Address | Phone | + + +---------+ + | Mrayana Zamora | ECON | Unknown | | + + +---------+ + Care Team Providers + +------+ + | Care Architectural Associate Name | Role | Phone | + [...] | [facility] | MD [address] | | | | | IMAGING | Radha Mathias. PATTI | | | | | [phone] | [place] [address] | | +--------+ + + + + [...] | | | | | | [facility] [address] | | | | | | [place] | | | | | | [address] | | | | | | | | +--------+---------+ + + + | 04/22/ | Office | Neurosurgery | Crow Bates MD | | | 2018 | Visit | | [address] [facility] | | | | | | [address] [place] | | | | | | [address] | | | | | | | [...]
--- OUTSIDE RECORDS SUMMARY | ~2019-02-06 | XMS | Encounter Summary ---
Demographics + + + | Address | [address] | | | [place] [address] | + + + | Home Phone | | + + + | Preferred Language | Unknown | + + + | Marital Status | | + + + | Worship Affiliation | 1077 | + + + | Race | Unknown | + + + | Ethnic Group | Unknown | + + + Author + + + | Author | [facility] | | | and [place] | + + + | Organization | [facility] | | | and [...] Team Providers + +------+ + | Care Lumber Handler Name | Role | Phone | + +------+ + | Vi Johnson | PCP | | | PA | | | + +------+ + Reason for Visit + + + | Reason | Comments | + + + | Follow-up | Discuss surgery | + + + Encounter Details +--------+---------+ + + + | Date | Type | Department | Care Team | Description | +--------+---------+ + + + | 01/09/ | Office | [facility] | Crow Bates MD | Lumbar facet | | 2019 | Visit | NEUROSURGERY [address] [place] | arthropathy (Primary | | | | [address] | [address] [place] | Dx); Scoliosis of | | | | [place] | [address] | thoracolumbar spine, | | | | [address] | | unspecified | | | | [phone] | | scoliosis type; | | | [...] | | | | | radiculopathy | +--------+---------+ + + + Social History [...] + + + | Blood Pressure | 160/80 | 01/09/201937 PST | + + + + | Pulse | 86 | 01/09/201937 PST | + + + + | Temperature | - | - | + + + + | Respiratory Rate | - | - | + + + + | Oxygen Saturation | - | - | + + + + | Inhaled Oxygen | - | - | | Concentration | | | + + + + | Weight | 75.9 kg (167 lb 5.3 | 01/09/2019836 PST | | | oz) | | + + + + | Height | 152.4 cm (5') | 01/09/2019836 PST | + + + + | Body Mass Index | 32.68 | 01/09/2019836 PST | + + + + in this [...] + as of this encounter Progress Notes Crow Bates MD - 01/09/2019 0830 PSTFormatting of this note may be different from the geovani amilcar. Crow Bates MD [address] [facility], [address] [place] [address] PHONE: FAX: NEUROSURGERY FOLLOW-UP CHIEF COMPLAINT: Chief Complaint Patient presents with Follow-up Discuss surgery HISTORY OF PRESENT ILLNESS: The patient is a 78 y.o. female that presents for a follow up to discuss back surgery. Patient returns and overall is doing okay from her neck but has pe rsistent issue with her back and legs. Her back has been a bit better since her operation o n her neck for myelopathy but her lumbar radiculopathy has increased. She has persistent la teral leg to the dorsal foot pain and on the right and now left posterior leg pain that has increased. Patient was last seen on 08/12/2018 with the complaints of back pain. It was recommended th at she get a new Lumbar MRI. PAST MEDICAL HISTORY: Past Medical History: Diagnosis Date Allergic rhinitis Benign hypertension Bilateral lumbar radiculopathy 04/18/2017 DDD (degenerative disc disease), lumbar 04/18/2017 Dyslipidemia Hay fever Lumbar foraminal stenosis 04/18/2017 Lumbar spondylosis Osteoporosis Persistent insomnia PONV (postoperative nausea and vomiting) S/P cervical spinal fusion 01/20/2018 Spinal stenosis Subclinical hypothyroidism Wears dentures upper & lower partials PAST SURGICAL HISTORY: Past Surgical History: Procedure Laterality Date CATARACT REMOVAL Bilateral 03/2006; 04/2006 [facility] CERVICAL SPINE SURGERY 1987 C3-4 Dr Navarro CERVICAL SPINE SURGERY N/A 12/23/2017 Procedure: C4-5, C5-6 ACDF; Surgeon: Crow Bates MD; Location: [facility] MAIN OR TONSILLECTOMY 1942 [place] TUBAL LIGATION 1972 [facility] CURRENT MEDICATIONS: Current Outpatient Prescriptions Medication Sig Dispense Refill amLODIPine (NORVASC) 5 mg tablet Take 5 mg by mouth Daily. ascorbic acid (VITAMIN C) 500 mg tablet Take 500 mg by mouth Daily. aspirin 81 MG tablet Take 81 mg by mouth Daily. benazepril (LOTENSIN) 10 mg tablet Take 10 mg by mouth Daily. benzonatate (TESSALON) 200 MG capsule Take 200 mg by mouth 3 times daily as needed. 0 betamethasone valerate (VALISONE) 0.1 % cream Apply topically 2 times daily. cetirizine (ZYRTEC) 10 mg tablet Take 10 mg by mouth Daily. 0 cyclobenzaprine (FLEXERIL) 10 mg tablet Take 1 tablet by mouth every 8 hours as needed for Muscle spasms. 90 tablet 3 ergocalciferol (VITAMIN D-2) 50,000 units capsule Take 50,000 Units by mouth Once a wee k. 0 famotidine (PEPCID) 20 mg tablet Take 1 tablet by mouth 2 times daily. (Patient taking differently: Take 10 mg by mouth 2 times daily.) 60 tablet 1 levothyroxine (SYNTHROID, LEVOTHROID) 75 MCG tablet Take 75 mcg by mouth every morning (before breakfast). meloxicam (MOBIC) 15 mg tablet Take 15 mg by mouth Daily. 0 Multiple Vitamin (THERAGRAN PO) Take by mouth. [place]-3 Fatty Acids (FISH OIL) 1360 MG CAPS Take 1,000 mg by mouth 3 times daily. polyethylene glycol-propylene glycol (SYSTANE) 0.4-0.3% ophthalmic solution Place 1 lyubov p into both eyes EVERY 4 TO 6 HOURS NEEDED for Dry Eyes. simvastatin (ZOCOR) 40 mg tablet Take 40 mg by mouth Daily. zolpidem (AMBIEN) 5 mg tablet Take 5 mg by mouth nightly as needed for Sleep. No current facility-administered medications for this visit. ALLERGIES: Allergies Allergen Reactions Nickel Rash Sheep Itching and Rash WOOL FAMILY HISTORY: Family History Problem Relation Age of Onset Heart disease Mother Arthritis Mother Alzheimer's disease Mother Alcohol abuse Father Heart disease Father Cancer Father Cancer Brother Adenocarcinoma Cinema Cancer Paternal Grandfather Tuberculosis Paternal Grandfather Seizures Daughter epilepsy Heart disease Paternal Grandmother Early Paternal Uncle 33 [place] No Known Problems Paternal Aunt Cancer Maternal Aunt Spinal Early Maternal Grandmother 28 Child Early Maternal Grandfather 23 Appendix No Known Problems Child No Known Problems Child No Known Problems Grandchild No Known Problems Grandchild Great -grandchild Early Maternal Uncle 3 Drowned SOCIAL HISTORY: The patient reports that she quit smoking about 35 years ago. Her smoking use included Cig arettes. She started smoking about 52 years ago. She has a 18.00 pack-year smoking history. She has never used smokeless tobacco. She reports that she drinks alcohol. She reports that she does not use drugs. REVIEW OF SYSTEMS: GENERALLY: No fever, no night sweats, no anemia, no fatigue, + recent profound weight nitesh nges. EYES: No eye problems, no impaired sight, no use of corrective lenses, no eye injury, no d ouble vision, no transient blindness. EARS, NOSE, AND THROAT: + changes in taste or smell, no hearing difficulty, no ringing in the ears, no ear drainage, no ear injury, no dizziness, no voice changes, no difficulty swal lowing, no significant snoring, no sleep apnea/CPAP, no sinus problems, no major dental work . NEUROLOGICALLY: Please see the review of systems discussed above in the history of present illness. In addition, the patient has pain in back, headaches. PSYCHIATRIC: No depression, no difficulty sleeping, no anxiety, no bipolar disorder. CARDIOVASCULAR: No heart attacks, no heart murmur, no heart fluttering, no chest pain, no ankle swelling. LUNG DISEASE: No shortness of breath, no cough, no tuberculosis, no bloody cough, no asthm a, no emphysema/COPD. GASTROINTESTINAL: No bowel disease, no nausea or vomiting, no rectal bleeding, no constipa tion, no fecal stool incontinence, no liver/gallbladder disease, no abdominal pain, no ulcer s. KIDNEY DISEASE: No urinary frequency, no painful or difficult urination, no urinary incont inence, no bladder problems, no impotence. ENDOCRINE: No diabetes, no thyroid disease, no osteopenia or osteoporosis, no breast drain age. SKIN: No breast lumps, no skin disease or skin changes, no rashes/itches. HEMATOLOGIC/LYMPHATIC: No enlarged lymph nodes, no easy or unusual bleeding, no personal h istory of cancer. RHEUMATOLOGIC: No joint pain/arthritis, no rheumatoid arthritis. INTERIM PHYSICAL EXAMINATION: Blood pressure 160/80, pulse 86, height 1.524 m (5'), weight 75.9 kg (167 lb 5.3 oz), not c urrently . Body mass index is 32.68 kg/m. GENERAL: Lulu Granados is in no acute distress with unlabored respirations. The patient does appear uncomfortable throughout the exam today. HEENT: Head: Normocephalic/atraumatic with no areas of recent trauma. Eyes: Normal sclerae without icterus. Ears: No drainage or tenderness. Nasopharnyx: Clear without drainage. Oropharnyx: Clear without erythema. NECK (ANTERIOR): Supple and without palpable masses. Her anterior scar is healing well. CHEST: Clear to ausculation without crackles or wheeze. HEART: Regular rate and rhythm without murmurs. ABDOMEN: Soft, non-tender, non-distended, and without palpable masses. The patient is not o bese. SPINE: There is tenderness of the midline of the thoracic spine. The lumbar spine shows there is tenderness in the midline of the L4, L5, S1 levels. To palpation, there is no significant myofascial tenderness. There is no significant pain to provacative testing of the SI joint. There is scoliosis noted. EXTREMITIES: No cyanosis, clubbing, or edema. Distal pulses are palpable. NEUROLOGICAL EXAM: MENTAL STATUS: The patient is awake, alert, and oriented. She follows simple and complex commands. Her speech is fluent, she comprehends speech well, and she repeats well. She has no apparent deficits with short or long distance operator memory. CRANIAL NERVES: II: Acuity is intact. Brewer are full to confrontation. III, IV, : The pupils are reactive. Extraocular movements are intact. No ptosis is note d. V: Facial sensation is intact and symmetric. VII: Facial movements are symmetric. VIII: Hearing is intact bilaterally. IX, X: The uvula and palate move appropriately. XI: Shrug is equal bilaterally. XII: Tongue protrusion is midline. MOTOR EXAM: (5 IS NORMAL) * Indicates pain limited MUSCLE/ MOVEMENT: RIGHT LEFT Deltoids 5 5 Biceps 5 5 Triceps 5 5 Wrist Flexion 5 5 Wrist Extension 5 5 Median Intrinsics 5 5 Ulnar Intrinsics 5 5 Graduate Fellow Strength 5 5 Hip Flexion 5 5 Hip Extension 5 5 Knee Flexion 5 5 Knee Extension 5 5 Dorsiflexion 5 4+ Extensor Hallicus Longus 5 4+ Plantarflexion 5 5 SENSORY EXAM: Sensory exam shows diminished sensation to light touch of the left dorsal foot. REFLEXES: (2 OR 2+ IS NORMAL) REFLEX: RIGHT LEFT BICEPS 2+ 2+ BRACHIORADIALIS 2+ 2+ TRICEPS 2+ 2+ PATELLAR 2+ 2+ ACHILLES 2+ 2+ GAIT: Gait is unsteady. TEST AND RADIOGRAPHIC REVIEW: The patient's imaging was reviewed in detail with the patient today during the visit. The Lumbar MRI from 2019 shows severe progressive scoliosis causing multilevel foraminal stenosi s worst at L2-L5 on the right and worst at L5-S1 on the left. There is severe degenerative disc disease Lumbar x-rays from 2019 show severe degenerative disc disease at multiple levels with progr essive scoliosis. She also has significant sagittal imbalance on her lumbar and scoliosis f ilms. Her cervical x-rays from today show improving fusion. ASSESSMENT: Outpatient Morphine Equivalent Daily Dose (MEDD) None PEG Pain screening tool (Pain, enjoyment, general activity) Total score: 1.33 ( 9 0944) (Printable questionnaires in Arabic ) Encounter Diagnoses Name Primary? Scoliosis of thoracolumbar spine, unspecified scoliosis type Other secondary kyphosis, thoracolumbar region Lumbar facet arthropathy Yes Other osteoarthritis of spine, lumbar region Lumbar foraminal stenosis Bilateral lumbar radiculopathy Past Medical History: Diagnosis Date Allergic rhinitis Benign hypertension Bilateral lumbar radiculopathy 04/18/2017 DDD (degenerative disc disease), lumbar 04/18/2017 Dyslipidemia Hay fever Lumbar foraminal stenosis 04/18/2017 Lumbar spondylosis Osteoporosis Persistent insomnia PONV (postoperative nausea and vomiting) S/P cervical spinal fusion 01/20/2018 Spinal stenosis Subclinical hypothyroidism Wears dentures upper & lower partials PLAN: Overall, the patient is doing as expected with her neck but has persistent low back issues that are clinically and radiographically progressive. The patient has severe deformity and root compression. The patient has failed conservative care after many years. We had a lengthy discussion with the patient about his options for care including surgical and non-surgical options. We discussed the risks, alternatives, and benefits to surgical intervention with Ms. Granados in clinic. These risks included but were not limited to , stroke, heart attack, numbne ss, weakness, paralysis, failure of fusion, failure of hardware, subsidence, adjacent segmen t degeneration, cerebrospinal fluid leak, bleeding, infection, injury to surrounding tissues and organs, injury from positioning, injury to the nerves, difficulty with breathing, diffi culty with swallowing, difficulty with voice change, and need for additional surgery. Surgical options were discussed and the technique to be employed was described in detail to her. All her questions were answered. We discussed that the goal of the surgery is to prevent progression of her disease, but it is not considered a cure. We also discussed that although some patients may obtain 100% sym ptom relief, it is realistic to anticipate that some symptoms will continue postoperatively despite a successful surgery. We also discussed that there is no guarantee that surgery will provide improvement in her c ondition, and indeed may even worsen the symptoms. We also discussed that in the course of the procedure the operative plan may be altered to include more, less, or different levels d epending upon findings in order to provide her with the best possible outcome. I am prescribing a brace before surgery to improve her stability now to support her weak mu scles and to reduce pain by restricting mobility. For multiple (more than 1 level) fusions, I am also prescribing a bone growth stimulator po stoperatively. This is to improve the probability and rate of fusion. This patient would like to seek evaluation for surgery for her lumbar region. She is aware this is a major surgery with an extended recovery. I, Crow Bates MD, personally performed the services described in this documentation, as scribed by GUERITA Sandy in my presence, and it is both accurate and complete. ELECTRONICALLY SIGNED BY: Crow Bates MD, 01/09/2019 17:38 in this encounter Plan of Treatment +--------+---------+ [...] [place] | | | | | | [id number] | | | | | | | | +--------+---------+ + + + | 04/22/ | Office | Neurosurgery | Crow Bates MD | | | 2019 | Visit | | [address] [facility] | | | | | | [address] [place] | | | | | | [address] | | | | | | | | +--------+---------+ + + + as of this encounter Visit Diagnoses + + | Diagnosis | + + | Lumbar facet arthropathy - Primary | + + | Lumbosacral spondylosis without myelopathy | + + | Scoliosis of thoracolumbar spine, unspecified scoliosis type | + + | Other secondary kyphosis, thoracolumbar region | + + | Other osteoarthritis of spine, lumbar region | + + | Lumbar foraminal stenosis | + + | Spinal stenosis, lumbar region, without neurogenic claudication | + + | Bilateral lumbar radiculopathy | + +"
--- OUTSIDE RECORDS SUMMARY | ~2019-02-06 | XMS | Encounter Summary ---
Demographics + + + | Address | [address] | | | [place] [address] | + + + | Home Phone | | + + + | Preferred Language | Unknown | + + + | Marital Status | | + + + | Restorationist Affiliation | 1077 | + + + | Race | Unknown | + + + | Ethnic Group | Unknown | + + + Author + + + | Author | [facility] | | | and [place] | + + + | Organization | [facility] | | | and [...] Team Providers + +------+ + | Care Input Output Clerk Name | Role | Phone | + [...] IMAGING | | | | | | [phone] | | | +--------+ + + + [...] [place] | | | | | | [address] | | | | | | | | +--------+---------+ + + + | 04/22/ | Office | Neurosurgery | Crow Bates MD | | | 2019 | Visit | | [address] [facility] | | | | | | [address] | | | | | | [address] | | | | | | | | +--------+---------+ + + + as of this encounter Visit Diagnoses Not on filein this encounter"
--- OUTSIDE RECORDS SUMMARY | ~2019-02-06 | XMS | Encounter Summary ---
Demographics + + + | Address | [address] | | | [place] [address] | + + + | Home Phone | | + + + | Preferred Language | Unknown | + + + | Marital Status | | + + + | Gnosticist Affiliation | 1077 | + + + | Race | Unknown | + + + | Ethnic Group | Unknown | + + + Author + + + | Author | [facility] | | | and [place] | + + + | Organization | [facility] | | | and [...] Team Providers + +------+ + | Care Payroll Bookkeeper Name | Role | Phone | + [...] + + | 01/09/ | Office | [facility] | Crow Bates MD | Lumbar facet | | 2019 | Visit | NEUROSURGERY [address] [place] | arthropathy (Primary | | | | [address] | [address] | Dx); Scoliosis of | | | | [place] | [address] | thoracolumbar spine, | | | | [address] | | unspecified | | | | [phone] | | scoliosis type; | | | [...] the geovani amilcar. Crow Bates MD [address] [facility], [address] [place] [address] PHONE: FAX: NEUROSURGERY FOLLOW-UP CHIEF COMPLAINT: Chief [...] Laterality Date CATARACT REMOVAL Bilateral 03/2006; 04/2006 [facility] CERVICAL SPINE SURGERY 1987 C3-[address] Navarro CERVICAL SPINE SURGERY N/A 12/23/2017 Procedure: C4-5, C5-6 ACDF; Surgeon: Crow Bates MD; Location: [facility] MAIN OR TONSILLECTOMY [address] [place] TUBAL LIGATION 1972 [facility] CURRENT MEDICATIONS: Current Outpatient Prescriptions [...] Multiple Vitamin (THERAGRAN PO) Take by mouth. 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 CRANIAL NERVES: II: Acuity is intact. [...] Intrinsics 5 5 Ulnar Intrinsics 5 5 Plastic Tubing Insulation Supervisor Strength 5 5 Hip Flexion 5 5 [...] general activity) Total score: 1.33 ( 9 9298) (Printable questionnaires in Lao ) Encounter Diagnoses Name Primary? Scoliosis of [...] [place] | | | | | | [id number] | | | | | | | | +--------+---------+ + + + | 04/22/ | Office | Neurosurgery | Crow Bates MD | | | 2019 | Visit | | [address] [facility] | | | | | | [address] | | | | | | [address] | | | | | | | [...]
--- OUTSIDE RECORDS SUMMARY | ~2019-02-06 | XMS | Encounter Summary ---
Demographics + + + | Address | [address] | | | [place] [address] | + + + | Home Phone | | + + + | Preferred Language | Unknown | + + + | Marital Status | | + + + | Nondenominational Affiliation | 1077 | + + + | Race | Unknown | + + + | Ethnic Group | Unknown | + + + Author + + + | Author | [facility] | | | and [place] | + + + | Organization | [facility] | | | [...] Team Providers + +------+ + | Care Mdm Developer Name | Role | Phone | [...] | | | | unspecified | | [address] Phone: | | | | | scoliosis | | [phone] | | | | | type, | | Fax: | | | | | unspecified | | [phone] | | | | | spinal | [...] + + | 01/26/ | Hospital | [facility] | Crow Bates MD | Gait abnormality | | 2019 - | Encounter | MED CTR SURGICAL | [address] [place] | (Primary Dx); | | | | [address] [place] | [address] [place] | Bilateral lumbar | | 01/30/ | | [place] [address] | [address] | radiculopathy | | 2019 | | [phone] | | | +--------+ + + + [...] Electronically signed by: Freddy Og, 01/30/2019 10:10 [facility] in this encounter Discharge Instructions Freddy Og [...] to your 1 month post op appointment. [id number] [employer]. [address] [place] [address], [place] [address]. All righ ts reserved. This information is [...] + + + +---------+ + + | [place]-3 Fatty | Take 1,000 mg by | [...] may be different from t he original. [facility] Daily Progress Note Date: 01/30/2019 [...] L3-4, L4-5, L5-S1 7. L5 and partial O1jszzzbcxdbv, L5-O9ebncotclxhe, L5 and R4sihisgzlhzjk for decompre ssion of L5 and R4akkpoj 3. Advanced lumbar degenerative arthritic and disc [...] I met with the CLAIR PA and skilled nursing case manager and reviewed the overall plan of care. We discussed patient's current status. She is doing well and is ready for discharge to [facility] with home health. Signed: MD Earle Gutierrez Derek E, PA-C - 01/30/2019 1004 PDTFormatting of this note may be different from the original. 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 MOTOR EXAM: Motor strength is L [...] note may be different from the original. [facility] NEUROSURGERY PROGRESS NOTE PATIENT NAME: Lulu [...] 5 mg 5 mg Oral Daily Jose Roas PA-C 5 mg at 0 01/28/19 0808 [...] has no apparent deficits with short or snf memory. MOTOR EXAM: Motor strength is L [...] note may be different from the original. [facility] NEUROSURGERY PROGRESS NOTE PATIENT NAME: Lulu [...] has no apparent deficits with short or snf memory. MOTOR EXAM: Motor strength is L [...] ble that patient may also need a correction facility. ELECTRONICALLY SIGNED BY: Freddy Og PA-C, 01/28/2019 9:05Hill, Walter Sheridan MD - 01/27/2019 6196 PDTWe are evaluating the patient regarding her potential to benefit and to lerate full inpatient rehab. I am checking with our rehab therapist to see if our program is her best option .Freddy Og PA-C - 01/27/2019 3592 PDTFormatting of this note may be different from the [facility] NEUROSURGERY PROGRESS NOTE PATIENT NAME: Lulu Granados [...] has no apparent deficits with short or snf memory. MOTOR EXAM: Motor strength is stable [...] ble that patient may also need a correction facility. ELECTRONICALLY SIGNED BY: Freddy Og PA-C, [...] [place] | | | | | | [id number] | | | | | | | | +--------+---------+ + + + | 04/22/ | Office | Neurosurgery | Crow Bates MD | | | 2018 | Visit | | [address] | | | | | | [address] [place] | | | | | | [address] | | | | | | | [...] >=60 mL/min/1.73m2 | [facility] | | [place] | | | [facility] | | [...] 78 | 46 - 116 U/L | [facility] | | | | | [facility] | | | | | CENTER - | | | | | LABORATORY | + +---------+ + + | Globulin | 2.0 (L) | 2.1 - 3.8 g/dL | [facility] | | | | | [facility] | | | | | CENTER - | | | | | LABORATORY | + +---------+ + + | Albumin/Globulin | 1.8 | 0.8 - 1.9 | [facility] | | Ratio | | | [facility] | | | | | CENTER - | | | | | LABORATORY | + +---------+ + + | BUN/Creatinine Ratio | 14.5 | | [facility] | | | | | [facility] | | | | | [...] [address] | [place] | [phone] | | [facility] | | [address] | | | - LABORATORY | | [...] [facility] | | | | | [facility] | | | | | CENTER [...] + | [facility] | [address] | [place] | [phone] | | [facility] | | [address] | | | - LABORATORY | | | | + + + + + Extra Lavender Top Tube (01/27/2019622) + +-------+ + + | Component | Value | Ref Range | Performed At | + +-------+ + + | Extra Lavender Top | Done | | [facility] | | Tube | | | [facility] | | | | | CENTER - [...] [address] | [place] | [phone] | | [facility] | | [address] | | | - LABORATORY | | [...] >=60 mL/min/1.73m2 | [facility] | | [place] | | | [facility] | | | | | CENTER - | | | | | LABORATORY | + +---------+ + + | Ca | 9.1 | 8.7 - 10.4 mg/dL | [facility] | | | | | [facility] | | | | | CENTER - | | | | | LABORATORY | + +---------+ + + | BUN/Creatinine Ratio | 15.3 | | [facility] | | | | | [...] [address] | [place] | [phone] | | [facility] | | [address] | | | - LABORATORY | | [...] + | [facility] | [address] | [place] | [phone] | | [facility] | | [address] | | | - LABORATORY | | [...]
--- OUTSIDE RECORDS SUMMARY | ~2019-02-06 | XMS | Encounter Summary ---
Demographics + + + | Address | [address] | | | [place] [address] | + + + | Home Phone | | + + + | Preferred Language | Unknown | + + + | Marital Status | | + + + | Yazidism Affiliation | 1077 | + + + | Race | Unknown | + + + | Ethnic Group | Unknown | + + + Author + + + | Author | [facility] | | | and [place] | + + + | Organization | [facility] | | | and [...] Team Providers + +------+ + | Care Neuropsychology Service Director Name | Role | Phone | + +------+ + | Vi Johnsno | PCP | | | [place] | [...] | | | | unspecified | | [address] Phone: | | | | | scoliosis | | [phone] | | | | | type, | | Fax: | | | | | unspecified | | [phone] | | | | | spinal | [...] | | | | | | | [place] SPINAL | | | | | | | FUSION,ANT,E | | | | | | | A ADNL LEVEL | | | | | | | [place] SPINE | | | | | | | FUSN,POST | | | | | | | TECH,EA | | | | | | | ADDNL SGMT | | | | | | | [place] ARTHDSIS | | | | | | [...] | | | | | | SEG [place] INSJ | | | | | | | BIOMCHN DEV | | | | | | | | | | | | | | INTERVERTEBR | | | | | | | AL DSC SPC | | | | | | | W/ARTHRD [place] | | | | | | | [...] | | | | | | SEG [place] | | | | | | | LAMINEC/FACE | | | | | | | TECT/FORAMIN | | | | | | | ,EACH ADDNL | | | +--------+--------+ + + + + Encounter Details +--------+ + + + + | Date | Type | Department | Care Team | Description | +--------+ + + + + | 01/26/ | Hospital | [facility] | Crow Bates MD | Lumbar | | 2019 | Encounter | MED CTR XRAY [address] | [address] [place] | radiculopathy; | | | | [place] | [address] | Status post lumbar | | | | [place] [address] | [address] | spinal fusion | | | | [phone] | | | +--------+ + + + [...] + + +---------+ + + | meloxicam (MOBDESHAUN) | Take 15 mg by mouth | [...] + + + +---------+ + + | [place]-3 Fatty | Take 1,000 mg by | [...] [place] | | | | | | [address] | | | | | | | | +--------+---------+ + + + | 04/22/ | Office | Neurosurgery | Crow Bates MD | | | 2018 | Visit | | [address] [place] | | | | | | [address] | | | | | | [address] | | | | | | | | +--------+---------+ + + + + +--------+ + + | Name | Priori | Associated Diagnoses | Order Schedule | | | ty | | | + +--------+ + + | XR Lumbar Spine 2 or 3 Vw | Routin | Lumbar | 1 Occurrences | | | e | radiculopathy | starting 01/26/2019 | | | | Status post lumbar | until 01/26/2019 | | | | spinal fusion | | + +--------+ + + as of this encounter Visit Diagnoses + + | Diagnosis | + + | Lumbar radiculopathy | + + | Thoracic or lumbosacral neuritis or radiculitis, unspecified | + + | Status post lumbar spinal fusion | + + | Arthrodesis status | + + Admitting Diagnoses + + | Diagnosis | + + | Lumbar radiculopathy (M54.16), Scoliosis, unspecified scoliosis type, unspecified | | spinal region (M41.9), Lumbar spondylosis (M47.816), 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
--- OUTSIDE RECORDS SUMMARY | ~2019-02-06 | XMS | Encounter Summary ---
Demographics + + + | Address | [address] | | | [place] [address] | + + + | Home Phone | | + + + | Preferred Language | Unknown | + + + | Marital Status | | + + + | Rastafarian Affiliation | 1077 | + + + | Race | Unknown | + + + | Ethnic Group | Unknown | + + + Author + + + | Author | [facility] | | | and [place] | + + + | Organization | [facility] | | | and [...] Team Providers + +------+ + | Care Pricing Manager Name | Role | Phone | [...] [address] [place] [address] | [address] [place], [place] | | | | | [place], [place] | [address] | | | | | [address] | | | | | | [phone] | | | +--------+ + + + [...] [place] | | | | | | [id number] | | | | | | | | +--------+---------+ + + + | 04/22/ | Office | Neurosurgery | Crow Bates MD | | | 2018 | Visit | | [address] [place] | | | | | | [address] | | | | | | [address] | | | | | | | | +--------+---------+ + + + as of this encounter Visit Diagnoses Not on filein this encounter"
--- OUTSIDE RECORDS SUMMARY | ~2019-02-06 | XMS | Encounter Summary ---
Demographics + + + | Address | [address] | | | [place] [address] | + + + | Home Phone | | + + + | Preferred Language | Unknown | + + + | Marital Status | | + + + | Catholic Affiliation | 1077 | + + + | Race | Unknown | + + + | Ethnic Group | Unknown | + + + Author + + + | Author | [facility] | | | and [place] | + + + | Organization | [facility] | | | and [place] [...] Providers + +------+ + | Care Metal Plater Name | Role | Phone | + [...] | | | | unspecified | | [address] Phone: | | | | | scoliosis | | [phone] | | | | | type, | | Fax: | | | | | unspecified | | [phone] | | | | | spinal | [...] | | | | | | | [place] SPINAL | | | | | | | FUSION,ANT,E | | | | | | | A ADNL LEVEL | | | | | | | [place] SPINE | | | | | | | FUSN,POST | | | | | | | TECH,EA | | | | | | | ADDNL SGMT | | | | | | | [place] ARTHDSIS | | | | | | [...] | | | | | | SEG [place] INSJ | | | | | | | BIOMCHN DEV | | | | | | | | | | | | | | INTERVERTEBR | | | | | | | AL DSC SPC | | | | | | | W/ARTHRD [place] | | | | | | | [...] | | | | | | SEG [place] | | | | | | | LAMINEC/FACE | | | | | | | TECT/FORAMIN | | | | | | | ,EACH ADDNL | | | +--------+--------+ + + + + Encounter Details +--------+ + + + + | Date | Type | Department | Care Team | Description | +--------+ + + + + | 01/26/ | Hospital | [facility] | Crow Bates MD | | | 2019 | Encounter | MED CTR XRAY [address] | [address] [facility] | | | | | [place] | [address] | | | | | [place] [address] | [address] | | | | | [phone] | | | +--------+ + + + [...] + + + +---------+ + + | [place]-3 Fatty | Take 1,000 mg by | [...] [place] | | | | | | [address] | | | | | | | | +--------+---------+ + + + | 04/22/ | Office | Neurosurgery | Crow Bates MD | | | 2018 | Visit | | [address] [place] | | | | | | [address] | | | | | | [address] | | | | | | | [...]
--- OUTSIDE RECORDS SUMMARY | ~2019-02-06 | XMS | Encounter Summary ---
Demographics + + + | Address | [address] | | | [place] [address] | + + + | Home Phone | | + + + | Preferred Language | Unknown | + + + | Marital Status | | + + + | Samaritan Affiliation | 1077 | + + + | Race | Unknown | + + + | Ethnic Group | Unknown | + + + Author + + + | Author | [facility] | | | and [place] | + + + | Organization | [facility] | | | and [place] [...] + +------+ + | Care Director Of Consulting Services Name | Role | Phone | + [...] | | | | unspecified | | [address] Phone: | | | | | scoliosis | | [phone] | | | | | type, | | Fax: | | | | | unspecified | | [phone] | | | | | spinal | [...] | | | | | | | [place] SPINAL | | | | | | | FUSION,ANT,E | | | | | | | A ADNL LEVEL | | | | | | | [place] SPINE | | | | | | | FUSN,POST | | | | | | | TECH,EA | | | | | | | ADDNL SGMT | | | | | | | [place] ARTHDSIS | | | | | | [...] | | | | | | SEG [place] INSJ | | | | | | | BIOMCHN DEV | | | | | | | | | | | | | | INTERVERTEBR | | | | | | | AL DSC SPC | | | | | | | W/ARTHRD [place] | | | | | | | [...] | | | | | | SEG [place] | | | | | | | [...] | | | | | [address] | [place] | | | | | [place] | [address] | | | | | [address] | | | | | | [phone] | | | +--------+ + + + [...] +----+---+ + + | | 1 | [place] | | | | 2 | 43-degrees [...] +----+---+ + + | | 1 | [place] off | | | | 6 | [...] 01/30/19 1431 by | | eral | vsjw-hyt-lpcnuu catheter system; | Brissa Hall, | Linda [...] [place] | | | | | | [address] | | | | | | | | +--------+---------+ + + + | 04/22/ | Office | Neurosurgery | Crow Bates MD | | | 2018 | Visit | | [address] [place] | | | | | | [address] | | | | | | [address] | | | | | | | [...]
--- OUTSIDE RECORDS SUMMARY | ~2019-02-06 | XMS | Encounter Summary ---
Demographics + + + | Address | [address] | | | [place] [address] | + + + | Home Phone | | + + + | Preferred Language | Unknown | + + + | Marital Status | | + + + | Uatsdin Affiliation | 1077 | + + + | Race | Unknown | + + + | Ethnic Group | Unknown | + + + Author + + + | Author | [facility] | | | and [place] | + + + | Organization | [facility] | | | and [place] | [...] Team Providers + +------+ + | Care Occupational Therapy Technician Name | Role | Phone | [...] [address] | | | | | [phone] | [place] [address] | | +--------+ + + + + [...] [address] | | | | | | [place] | | | | | | [address] | | | | | | | | +--------+---------+ + + + | 04/22/ | Office | Neurosurgery | Crow Bates MD | | | 2018 | Visit | | [address] [place] | | | | | | [address] [place] | | | | | | [address] | | | | | | | [...]
--- OUTSIDE RECORDS SUMMARY | ~2019-02-06 | XMS | Encounter Summary ---
Demographics + + + | Address | [address] | | | [place] [address] | + + + | Home Phone | | + + + | Preferred Language | Unknown | + + + | Marital Status | | + + + | Christian Affiliation | 1077 | + + + | Race | Unknown | + + + | Ethnic Group | Unknown | + + + Author + + + | Author | [facility] | | | and [place] | + + + | Organization | [facility] | | | and [...] Team Providers + +------+ + | Care Human Resources Hr Representative Name | Role | Phone | + +------+ + | Vi Johnson | PCP | | | [place] | | | + +------+ + Encounter Details +--------+ + + + + | Date | Type | Department | Care Team | Description | +--------+ + + + + | 01/26/ | Procedure | [facility] | | | | 2018 | Pass | MED CTR OR INTRA OP | | | | | | [address] | | | | | | [place] | | | | | | [address] | | | | | | [phone] | | | +--------+ + + + [...] | | | | | | [facility] [address] | | | | | | [place] | | | | | | [address] | | | | | | | | +--------+---------+ + + + | 04/22/ | Office | Neurosurgery | Crow Bates MD | | | 2019 | Visit | | [address] | | | | | | [address] [place] | | | | | | [address] | | | | | | | | +--------+---------+ + + + as of this encounter Visit Diagnoses Not on filein this encounter"
--- OUTSIDE RECORDS SUMMARY | ~2019-02-06 | XMS | Encounter Summary ---
Demographics + + + | Address | [address] | | | [place] [address] | + + + | Home Phone | | + + + | Preferred Language | Unknown | + + + | Marital Status | | + + + | Religion Affiliation | 1077 | + + + | Race | Unknown | + + + | Ethnic Group | Unknown | + + + Author + + + | Author | [facility] | | | and [place] | + + + | Organization | [facility] [...] Team Providers + +------+ + | Care Dwarf Tree Grower Name | Role | Phone | + [...] | | | | | [address] | | | | | | [place] | | | | | | [address] | | | | | | [phone] | | | +--------+ + + + [...] | | | | | | [facility] [address] | | | | | | [place] | | | | | | [address] | | | | | | | | +--------+---------+ + + + | 04/22/ | Office | Neurosurgery | Crow Bates MD | | | 2019 | Visit | | [address] | | | | | | [address] [place] | | | | | | [address] | | | | | | | | +--------+---------+ + + + as of this encounter Visit Diagnoses Not on filein this encounter"
--- OUTSIDE RECORDS SUMMARY | ~2019-02-06 | XMS | Encounter Summary ---
Demographics + + + | Address | [address] | | | [place] [address] | + + + | Home Phone | | + + + | Preferred Language | Unknown | + + + | Marital Status | | + + + | Shinto Affiliation | 1077 | + + + | Race | Unknown | + + + | Ethnic Group | Unknown | + + + Author + + + | Author | [facility] | | | and [place] | + + + | Organization | [facility] | | | and [place] [...] Team Providers + +------+ + | Care Body Recall Instructor Name | Role | Phone | + [...] | | | | unspecified | | [address] Phone: | | | | | scoliosis | | [phone] | | | | | type, | | Fax: | | | | | unspecified | | [phone] | | | | | spinal | [...] | | | | | | | [place] SPINAL | | | | | | | FUSION,ANT,E | | | | | | | A ADNL LEVEL | | | | | | | [place] SPINE | | | | | | | FUSN,POST | | | | | | | TECH,EA | | | | | | | ADDNL SGMT | | | | | | | [place] ARTHDSIS | | | | | | [...] | | | | | | SEG [place] INSJ | | | | | | | BIOMCHN DEV | | | | | | | | | | | | | | INTERVERTEBR | | | | | | | AL DSC SPC | | | | | | | W/ARTHRD [place] | | | | | | | [...] | | | | | | SEG [place] | | | | | | | LAMINEC/FACE | | | | | | | TECT/FORAMIN | | | | | | | ,EACH ADDNL | | | +--------+--------+ + + + + Encounter Details +--------+ + + + + | Date | Type | Department | Care Team | Description | +--------+ + + + + | 01/26/ | Hospital | [facility] | Crow Bates MD | Lumbar | | 2019 | Encounter | MED CTR XRAY [address] | [address] [place] | radiculopathy; | | | | [place] | [address] | Status post lumbar | | | | [place] [address] | [address] | spinal fusion | | | | [phone] | | | +--------+ + + + [...] + + + +---------+ + + | [place]-3 Fatty | Take 1,000 mg by | [...] [place] | | | | | | [address] | | | | | | | | +--------+---------+ + + + | 04/22/ | Office | Neurosurgery | Crow Bates MD | | | 2018 | Visit | | [address] [place] | | | | | | [address] [place] | | | | | | [address] | | | | | | | [...]
[~2019-02-06 12:31] MED LIST: AMLODIPINE PO; BENAZEPRIL PO; BENZONATATE200 MG PO; CALCIUM 500 +1 EAC1 PO; FAMOTIDINE20 MG PO; FISH OIL 1,4001 EACH PO; MELOXICAM15 MG PO; MULTI VITAMIN1 EACH PO; OMEPRAZOLE20 MG PO; SIMVASTATIN40 MG PO; SYNTHROID100 MCG PO; SYSTANE 0.3-0.1 EACH OP; TRAMADOL HCL50 MG PO; VITAMIN C500 M4 PO; ZOLPIDEM TARTRA10 MG PO
--- OUTSIDE RECORDS SUMMARY | 2019-02-06 12:34 | XMS ---
PreManage Notification: ROD VU Security Model Technician Events No recent Security Events currently on file CRITERIA MET - [facility]ALL[facility] CARE PROVIDERS Vi Johnson Current PAC PHONE: Unknown Floresita has no Care Guidelines for this patient. ESusan VISIT COUNT (12 MO.) 1 CRISTY Fonseca TOTAL 1 NOTE: Visits indicate total known visits. ED/UCC VISIT TRACKING (12 MO.) 02/06/2019 12:32 CRISTY Ledezma TYPE: Emergency COMPLAINT: - POST OP PROBLEM, POSS INFECTION INPATIENT VISIT TRACKING (12 MO.) 01/26/2019 09:[address] [facility] Blanka METZGER TYPE: Surgical Services DIAGNOSES: - Unspecified abnormalities of gait and mobility - Radiculopathy, lumbar region [email or web address]
== END 2019-02-06 13:00 | disposition home or self-care (01) ==
LOC: ED 12:31
DX: T81.9XXA Unspecified complication of procedure, initial encounter (principal)